=== PATIENT | female | born 1995 | race Caucasian/White ===

== ENCOUNTER 2017-01-23 07:03 | Emergency (ER) | payer OTHER ==
[~2017-01-23] VITALS: Ht 160 cm; Wt 111.8 kg
[2017-01-23 07:07] VITALS: TEMP 36.4; Ht 160 cm; Wt 111.8 kg
[2017-01-23] MEDS ORDERED: SODIUM CHLORIDE 0.9% 1000ML 1,000 ML IV STA (07:21)
[2017-01-23] MEDS ORDERED: KETOROLAC TROMETHAMINE 30 MG/ML VIAL IV STA (07:21)
[2017-01-23] MEDS ORDERED: ONDANSETRON INJ 2 MG/ML 2 ML VIAL IV STA (07:21)
--- NOTE | 2017-01-23 07:25 | EMERGENCY ROOM VISIT NOTE ---
History Report prepared by Makenna: Kecia Walls Under the Supervision of: Dr. Larry Keyes M.D. First contact with patient: 07:12 Chief Complaint: FLANK PAIN Stated Complaint: LEFT BACK SIDE PAIN History of Present Illness The patient is a 21 year old female who presents to the Emergency Room with complaints of persistent left flank pain that started at two hours ago. She currently rates her discomfort as a 10/10 in severity, describing her pain as a sharp pain. The patient states that her pain radiates from her left flank into her left abdomen. She states that she often does a lot of heavy lifting at work. The patient states that her pain worsens when sitting down and with movement. She denies ever having a pain like this in the past. The patient states that her father has a history of kidney stones. She denies falling or any possible trauma. Patient states she does not have any urinary symptoms, fever, chills, chest pain, shortness of breath, numbness, or weakness. The patient states that her last menstrual cycle was two weeks ago, noting a possibility of . She denies being on any active medications. The patient denies any allergies. Source of History: patient Onset: two hours ago Position: other (left flank) Symptom Intensity: 10/10 Quality: sharp Timing: other (persistent) Modifying Factors (Worsening): movement, other (sitting down) Associated Symptoms: No fevers, No chills, No chest pain, No SOB, No urinary symptoms, No weakness, No numbness Review of Systems See HPI for pertinent positives & negatives. A total of 10 systems reviewed and were otherwise negative. Past Medical & Surgical Medical Problems: (1) Asthma Surgical Problems: (1) S/P tonsillectomy and adenoidectomy Old medical records were reviewed. Nurse's notes were reviewed and I agree with. Family History FHx: cancer Kidney disease Kidney stones Social History Smoking Status: Former Smoker Smokeless Tobacco Use: No Alcohol Use: occasionally Marital Status: in relationship Housing Status: lives with family Occupation Status: employed Current/Historical Medications Scheduled PRN Oxycodone Immediate Rel Tab (Roxicodone Ir), 1-2 TAB PO Q4H PRN for Severe Pain Allergies Coded Allergies: No Known Allergies (Unverified , 01/23/17) Physical Exam Vital Signs Date Time Temp Pulse Resp B/P (MAP) Pulse Ox O2 Delivery O2 Flow Rate FiO2 01/23/17 09:22 70 18 122/70 99 01/23/17 08:08 72 18 109/71 96 Room Air 01/23/17 07:07 36.4 99 18 136/82 97 Room Air Physical Exam General: Non-ill appearing young female in no acute distress. HEENT: Normal cephalic atraumatic. Pupils are equal round and reactive to light. Extraocular movements are intact. Oropharynx is pink with moist mucous membranes. No swelling of the mouth lips or tongue. Neck: Supple with a midline trachea. No meningeal signs or stiffness, no JVD or bruits. No Stridor. Chest: Clear to auscultation bilaterally. No wheezes or rhonchi. No increased work of breathing. Heart: regular rate and rhythm. Abdomen: Soft nontender, nondistended without rebound guarding or rigidity. Extremities: No cyanosis clubbing or edema. No calf tenderness or assymetry Spine/Back. Mildly tender in the left flank into the left abdomen, no rash. Skin: Good turgor without rashes. Neurologic exam: Cranial nerves two through 12 are intact. Motor and sensation are intact and symmetrical throughout. Medical Decision & Procedures ER Provider Diagnostic Interpretation: CT results as stated below per my review and radiologist interpretation: ABD/PELVIS WITHOUT FOR STONE HISTORY: 21 years-old Female left flank pain acute left-sided flank pain COMPARISON: None available TECHNIQUE: Multiple axial CT images of the abdomen and pelvis were obtained without IV contrast. A dose lowering technique was used consistent with the principals of ALARA. FINDINGS: Lung bases are clear. No pneumoperitoneum identified. No pneumatosis. Imaged inferior cardiac chambers are unremarkable. The liver, spleen, pancreas, gallbladder and adrenal glands are unremarkable. Right kidney and ureter are within normal limits. There is mild left-sided hydroureteronephrosis with mild perinephric and periureteral inflammatory stranding secondary to a 4 x 3 x 3 mm calculus of the proximal left ureter which is present approximately 2.2 cm distal to the ureteropelvic junction at the level of L2. No additional left-sided renal or ureteral calculi. Urinary bladder and uterus are unremarkable. Follicular changes of the ovaries are noted. The aorta is normal in course and caliber. No bulky adenopathy. There is no bowel obstruction or focal bowel wall thickening. Minimal colonic diverticulosis without diverticulitis. The appendix appears normal. Nonspecific mildly prominent lymph nodes are seen within the right lower quadrant mesentery measuring up to 6 mm in short axis, likely physiologic. Soft tissues are unremarkable with patient obesity noted. The bones appear intact. IMPRESSION: 1. Mild left-sided hydroureteronephrosis secondary to a 4 x 3 x 3 mm calculus of the proximal left ureter at the level of L2. 2. Minimal colonic diverticulosis without diverticulitis. 3. Normal appendix. The above report was generated using voice recognition software. It may contain grammatical, syntax or spelling errors. Electronically signed by: Darnell Jordan M.D. 01/23/2017 8:11 AM Dictated Date/Time: 01/23/2017 8:05 AM Laboratory Results 01/23/17 07:45 Red Blood Count 4.76, Mean Corpuscular Volume 84.0, Mean Corpuscular Hemoglobin 28.6, Mean Corpuscular Hemoglobin Concent 34.0, Mean Platelet Volume 9.4, Neutrophils (%) (Auto) 66.1, Lymphocytes (%) (Auto) 26.5, Monocytes (%) (Auto) 6.5, Eosinophils (%) (Auto) 0.4, Basophils (%) (Auto) 0.3, Neutrophils # (Auto) 7.12, Lymphocytes # (Auto) 2.85, Monocytes # (Auto) 0.70, Eosinophils # (Auto) 0.04, Basophils # (Auto) 0.03 01/23/17 07:45 Test 01/23/17 07:25 01/23/17 07:45 Urine Color YELLOW Urine Appearance CLEAR (CLEAR) Urine pH 7.0 (4.5-7.5) Urine Specific [place] 1.011 (1.000-1.030) Urine Protein NEG (NEG) Urine Glucose (UA) NEG (NEG) Urine Ketones NEG (NEG) Urine Occult Blood 2+ (NEG) Urine Nitrite NEG (NEG) Urine Bilirubin NEG (NEG) Urine Urobilinogen NEG (NEG) Urine Leukocyte Esterase NEG (NEG) Urine WBC (Auto) 1-5 /hpf (0-5) Urine RBC (Auto) 10-30 /hpf (0-4) Urine Hyaline Casts (Auto) 0 /lpf (0-5) Urine Epithelial Cells (Auto) >30 /lpf (0-5) Urine Bacteria (Auto) 1+ (NEG) Urine Test NEG (NEG) White Blood Count 10.76 K/uL (4.8-10.8) Red Blood Count 4.76 M/uL (4.2-5.4) Hemoglobin 13.6 g/dL (12.0-16.0) Hematocrit 40.0 % (37-47) Mean Corpuscular Volume 84.0 fL (80-100) Mean Corpuscular Hemoglobin 28.6 pg (25-34) Mean Corpuscular Hemoglobin Concent 34.0 g/dl (32-36) Platelet Count 322 K/uL (130-400) Mean Platelet Volume 9.4 fL (7.4-10.4) Neutrophils (%) (Auto) 66.1 % Lymphocytes (%) (Auto) 26.5 % Monocytes (%) (Auto) 6.5 % Eosinophils (%) (Auto) 0.4 % Basophils (%) (Auto) 0.3 % Neutrophils # (Auto) 7.12 K/uL (1.4-6.5) Lymphocytes # (Auto) 2.85 K/uL (1.2-3.4) Monocytes # (Auto) 0.70 K/uL (0.11-0.59) Eosinophils # (Auto) 0.04 K/uL (0-0.5) Basophils # (Auto) 0.03 K/uL (0-0.2) RDW Standard Deviation 39.5 fL (36.4-46.3) RDW Coefficient of Variation 13.1 % (11.5-14.5) Immature Granulocyte % (Auto) 0.2 % Immature Granulocyte # (Auto) 0.02 K/uL (0.00-0.02) Anion Gap 9.0 mmol/L (3-11) Est Creatinine Clear Calc Drug Dose 150.7 ml/min Estimated GFR () 141.1 Estimated GFR (Non- 121.8 BUN/Creatinine Ratio 27.1 (10-20) Calcium Level 9.4 mg/dl (8.5-10.1) Total Bilirubin 0.3 mg/dl (0.2-1) Direct Bilirubin < 0.1 mg/dl (0-0.2) Aspartate Amino Transf (AST/SGOT) 20 U/L (15-37) Alanine Aminotransferase (ALT/SGPT) 39 U/L (12-78) Alkaline Phosphatase 80 U/L (45-117) Total Protein 7.9 gm/dl (6.4-8.2) Albumin 4.0 gm/dl (3.4-5.0) Lipase 96 U/L (73-393) Laboratory studies as stated above per my review. Medications Administered Medications (Trade) Dose Ordered Sig/Jr Route Start Time Stop Time Status Last Admin Dose Admin Sodium Chloride 1,000 ml @ 999 mls/hr Q1H1M STAT IV 01/23/17 07:21 01/23/17 08:21 DC 01/23/17 07:43 999 MLS/HR Ketorolac Tromethamine (Toradol Inj) 30 mg NOW STAT IV 01/23/17 07:21 01/23/17 07:23 DC 01/23/17 07:44 30 MG ED Course 0713: Past medical records reviewed. The patient was evaluated in room A10, and a complete history and physical examination were performed. 0721: Ordered Zofran Inj 4 mg IV, Toradol Inj 30 mg IV, Sodium Chloride 1000 ml @ 999 mls/hr IV. 0745: I reevaluated the patient and she is having her IV started. 0800: I went to reevaluate the patient and she is at her CT scan. 0812: I reevaluated the patient and she is feeling better. 0909: I reevaluated the patient and she is resting comfortably. I discussed the exam findings with her and I discussed the treatment plan. She verbalized complete understanding and agreement. She is ready to go home. Medical Decision Differentials include, but are not limited to; kidney stone, UTI, musculoskeletal pain, electrolyte or metabolic abnormality, infection. This patient comes in as described above. She was placed in room A 10. She is having left flank pain that wraps around she had sudden onset. She does not appear to be in significant amount discomfort however, does complain of pain and did have some nausea in the way up. She is here with her boyfriend who is driving. IV access established was hydrated with 1 L IV normal saline bolus. She was given Toradol 30 mg IV and Zofran 4 mg IV. Multiple blood testing was obtained as well as urinalysis and culture and test. I'll see the CAT scan to rule out kidney stone other pathology. She was reassessed frequently. She was feeling better and had no further pain. Her urinalysis does not suggest infection. She has no acute electrolyte or metabolic abnormalities. CAT scan does show a proximal small to medium sized stone. This will will likely pass on its own but I told her that it may not. She should rest and drink plenty of fluids. Return if: Fever, worsening of symptoms , any new problems or concerns. She can use ibuprofen for pain and for breakthrough pain use OxyIR 5 mg. She is one of this could make her drowsy do not take before drinking, driving, working. She was happy with the plan and discharged to home. Medication Reconcilliation Current Medication List: was personally reviewed by me Blood Pressure Screening Patient's blood pressure: Normal blood pressure Blood pressure disposition: Did not require urgent referral Impression Primary Impression: Renal colic Additional Impression: Kidney stone on left side Scribe Attestation The scribe's documentation has been prepared under my direction and personally reviewed by me in its entirety. I confirm that the note above accurately reflects all work, treatment, procedures, and medical decision making performed by me. Departure Information Dispostion Home / Self-Care Prescriptions Oxycodone Immediate Rel Tab (ROXICODONE IR) 5 Mg Tab 1-2 TAB PO Q4H Y for Severe Pain, #24 TAB Prov: Larry Keyes M.D. 01/23/17 Referrals No Doctor, Assigned (PCP) SheltonShala GEOVANNI-Terence Forms HOME CARE DOCUMENTATION FORM, IMPORTANT VISIT INFORMATION, Work Instructions Patient Instructions My [facility] Additional Instructions Rest. Drink plenty of fluids. Strain her urine. Use ibuprofen 600 mg every 6 hours, take with food For more severe pain, use OxyIR 5 mg, one or 2 pills every 4-6 hours as needed OxyIR may make you drowsy and do not take before drinking, driving, working Return if: Fever, worsening of symptoms, pain not adequately controlled, not tolerating fluids, any new problems or concerns Follow-up with doctor on Thursday for recheck or return here over the weekend if symptoms worsen. If symptoms persist he may need to follow-up with the urologist as well. Problem Qualifiers
[2017-01-23 07:45] LABS: URINE APPEARANCE CLEAR (CLEAR); URINE BILIRUBIN NEG (NEG); URINE COLOR YELLOW; URINE EPITHELIAL CELL AUTO >30 /lpf (0-5); URINE NITRITE NEG (NEG); URINE SPECIFIC GRAVITY 1.011 (1.000-1.030); UROBILINOGEN NEG (NEG)
[2017-01-23 07:52] LABS: MANUAL MICROSCOPIC REQUIRED? NO; REVIEW REQ? NO
[2017-01-23 07:57] LABS: BASO % 0.3 %; BASO ABS # 0.03 K/uL (0-0.2); COMPLETE YES; EOS % 0.4 %; IG% 0.2 %; LYMPH % 26.5 %; LYMPH ABS # 2.85 K/uL (1.2-3.4); MEAN CORPUSCULAR HEMOGLOBIN 28.6 pg (25-34); MEAN PLATELET VOLUME 9.4 fL (7.4-10.4); MONO % 6.5 %; NEUT % 66.1 %; PLATELET COUNT 322 K/uL (130-400); RED BLOOD COUNT 4.76 M/uL (4.2-5.4); WHITE BLOOD COUNT 10.76 K/uL (4.8-10.8)
--- NOTE | 2017-01-23 08:12 | DIAGNOSTIC IMAGING REPORT ---
ABD/PELVIS WITHOUT FOR STONE HISTORY: 21 years-old Female left flank pain acute left-sided flank pain COMPARISON: None available TECHNIQUE: Multiple axial CT images of the abdomen and pelvis were obtained without IV contrast. A dose lowering technique was used consistent with the principals of MARIEL. FINDINGS: Lung bases are clear. No pneumoperitoneum identified. No pneumatosis. Imaged inferior cardiac chambers are unremarkable. The liver, spleen, pancreas, gallbladder and adrenal glands are unremarkable. Right kidney and ureter are within normal limits. There is mild left-sided hydroureteronephrosis with mild perinephric and periureteral inflammatory stranding secondary to a 4 x 3 x 3 mm calculus of the proximal left ureter which is present approximately 2.2 cm distal to the ureteropelvic junction at the level of L2. No additional left-sided renal or ureteral calculi. Urinary bladder and uterus are unremarkable. Follicular changes of the ovaries are noted. The aorta is normal in course and caliber. No bulky adenopathy. There is no bowel obstruction or focal bowel wall thickening. Minimal colonic diverticulosis without diverticulitis. The appendix appears normal. Nonspecific mildly prominent lymph nodes are seen within the right lower quadrant mesentery measuring up to 6 mm in short axis, likely physiologic. Soft tissues are unremarkable with patient obesity noted. The bones appear intact. IMPRESSION: 1. Mild left-sided hydroureteronephrosis secondary to a 4 x 3 x 3 mm calculus of the proximal left ureter at the level of L2. 2. Minimal colonic diverticulosis without diverticulitis. 3. Normal appendix. The above report was generated using voice recognition software. It may contain grammatical, syntax or spelling errors. Electronically signed by: Darnell Jordan M.D. 01/23/2017 8:11 AM Dictated Date/Time: 01/23/2017 8:05 AM
[2017-01-23 08:13] LABS: BUN/CREATININE RATIO 27.1 (10-20); CALCIUM 9.4 mg/dl (8.5-10.1); CREATININE 0.71 mg/dl (0.60-1.20)
[2017-01-23] MEDS ORDERED: OXYC1TAB3 PO (09:11)
[2017-01-23 09:12] LABS: ALKALINE PHOSPHATASE 80 U/L (45-117); ALT/SGPT 39 U/L (12-78); AST/SGOT 20 U/L (15-37)
[2017-01-23 09:22] VITALS: BP 122/70; PULSE 70; O2SAT 99
== END 2017-01-23 09:22 | disposition home or self-care (01) ==
LOC: C.EDB 07:05 → C.EDA 09:22
DX: N13.2 Hydronephrosis with renal and ureteral calculous obstruction (principal); J45.909 Unspecified asthma, uncomplicated; Z84.1 Family history of disorders of kidney and ureter; Z80.9 Family history of malignant neoplasm, unspecified; Z87.891 Personal history of nicotine dependence

== ENCOUNTER 2017-01-27 06:43 | Inpatient (IN) | payer OTHER ==
[2017-01-27] VITALS (7 sets, daily range): BP systolic 101–125; BP diastolic 66–82; PULSE 116–149; TEMP 36.8–38.2; O2SAT 94–97; Ht 170.2 cm; Wt 111.7 kg
[~2017-01-27] VITALS: Ht 170.2 cm; Wt 111.7 kg
[~2017-01-27 06:43] MED LIST: OXYC1TAB3 PO
--- NOTE | 2017-01-27 07:18 | DIAGNOSTIC IMAGING REPORT ---
SINGLE VIEW CHEST CLINICAL HISTORY: Fever. FINDINGS: An AP, portable, upright chest radiograph is obtained. No prior studies are available for comparison at the time of dictation. The cardiomediastinal silhouette is unremarkable. The lungs and pleural spaces are clear. No pneumothorax is seen. The bony thorax is grossly intact. IMPRESSION: No active disease in the chest. Electronically signed by: John Rodriguez M.D. 01/27/2017 7:17 AM Dictated Date/Time: 01/27/2017 7:17 AM
--- NOTE | 2017-01-27 07:21 | EMERGENCY ROOM VISIT NOTE ---
History First contact with patient: 06:54 Chief Complaint: FEVER Stated Complaint: FEVER, KIDNEY STONE, ECOLI History of Present Illness The patient is a 21 year old female who presents to the Emergency Room with complaints of fever in setting of recent kidney stone and UTI. She woke up early this am (0330) with back pain, took 4 ibuprofen, and took her temp 1 hour later (0415) and was 100.9. Rechecked and 101 temp was measured at 0530. Both were measured in axilla. Temp today in ED 36.7C. Presents to ED as she was told to return if new onset of fever. 4 days ago was diagnosed with kidney stone on the left side; 3 days ago was called to be notified that she grew e.coli in her urine and was prescribed macrobid, which she had not been able to pick up driver since yesterday and has only taken 1 dose. Outlook ok on 3 days ago (1 day after DC for renal stone), had increasing pain 2 days ago into yesterday, and yesterday was able to control pain with scheduled oxy. She was meant to follow up with her PCP but has been unable to get in to see them She reports no chance of her being (had blood test 4 days ago). Review of Systems Constitutional: + fever, + chills Abdomen: + nausea Genitourinary - Female: + dysuria, + urinary frequency Past Medical/Surgical History Medical Problems: (1) Asthma Surgical Problems: (1) S/P tonsillectomy and adenoidectomy Family History FHx: cancer Kidney disease Kidney stones Social History Smoking Status: Current Every Day Smoker Alcohol Use: occasionally Marital Status: in relationship Housing Status: lives with family Occupation Status: employed Current/Historical Medications Scheduled Nitrofurantoin Monohyd Macrocr (Macrobid), 100 MG PO BID Scheduled PRN Ibuprofen Tab (Motrin), 800 MG PO UD PRN for Pain Oxycodone Immediate Rel Tab (Roxicodone Ir), 1-2 TAB PO Q4H PRN for Severe Pain Physical Exam Vital Signs Date Time Temp Pulse Resp B/P (MAP) Pulse Ox O2 Delivery O2 Flow Rate FiO2 01/27/17 09:43 106 18 141/97 99 Room Air 01/27/17 09:00 96 Room Air 01/27/17 08:30 36.4 77 18 132/75 96 Room Air 01/27/17 06:48 36.7 97 18 136/82 97 Room Air Physical Exam General Appearance: WD/WN, no apparent distress Head: normocephalic, atraumatic Eyes: normal inspection, EOMI ENT: hearing grossly normal Neck: supple, no adenopathy, trachea midline Respiratory/Chest: chest non-tender, lungs clear, normal breath sounds, no respiratory distress, no accessory muscle use Cardiovascular: regular rate, rhythm, no edema, no gallop, no JVD, no murmur , normal peripheral pulses Abdomen / GI: normal bowel sounds, non tender, soft, no pulsatile mass Back: normal inspection, + left CVA tenderness Extremities: normal inspection, no calf tenderness, normal capillary refill , no pedal edema Neurologic/Psych: foster care therapist II-XII nml as tested, no motor/sensory deficits, alert , normal mood/affect, normal reflexes, oriented x 3 Medical Decision & Procedures Laboratory Results 01/27/17 07:20 Red Blood Count 4.64, Mean Corpuscular Volume 84.1, Mean Corpuscular Hemoglobin 27.6, Mean Corpuscular Hemoglobin Concent 32.8, Mean Platelet Volume 9.8, Neutrophils (%) (Auto) 73.5, Lymphocytes (%) (Auto) 17.8, Monocytes (%) (Auto) 7.9, Eosinophils (%) (Auto) 0.3, Basophils (%) (Auto) 0.2, Neutrophils # (Auto) 8.79, Lymphocytes # (Auto) 2.13, Monocytes # (Auto) 0.94, Eosinophils # (Auto) 0.03, Basophils # (Auto) 0.02 01/27/17 07:20 Test 01/27/17 07:20 01/27/17 07:27 01/27/17 07:30 01/27/17 07:31 White Blood Count 11.94 K/uL (4.8-10.8) Red Blood Count 4.64 M/uL (4.2-5.4) Hemoglobin 12.8 g/dL (12.0-16.0) Hematocrit 39.0 % (37-47) Mean Corpuscular Volume 84.1 fL (80-100) Mean Corpuscular Hemoglobin 27.6 pg (25-34) Mean Corpuscular Hemoglobin Concent 32.8 g/dl (32-36) Platelet Count 278 K/uL (130-400) Mean Platelet Volume 9.8 fL (7.4-10.4) Neutrophils (%) (Auto) 73.5 % Lymphocytes (%) (Auto) 17.8 % Monocytes (%) (Auto) 7.9 % Eosinophils (%) (Auto) 0.3 % Basophils (%) (Auto) 0.2 % Neutrophils # (Auto) 8.79 K/uL (1.4-6.5) Lymphocytes # (Auto) 2.13 K/uL (1.2-3.4) Monocytes # (Auto) 0.94 K/uL (0.11-0.59) Eosinophils # (Auto) 0.03 K/uL (0-0.5) Basophils # (Auto) 0.02 K/uL (0-0.2) RDW Standard Deviation 39.5 fL (36.4-46.3) RDW Coefficient of Variation 13.1 % (11.5-14.5) Immature Granulocyte % (Auto) 0.3 % Immature Granulocyte # (Auto) 0.03 K/uL (0.00-0.02) Prothrombin Time 10.6 SECONDS (9.0-12.0) Prothromb Time International Ratio 1.0 (0.9-1.1) Est Creatinine Clear Calc Drug Dose 143.4 ml/min Estimated GFR () 122.2 Estimated GFR (Non- 105.4 BUN/Creatinine Ratio 15.0 (10-20) Calcium Level 9.0 mg/dl (8.5-10.1) Magnesium Level 2.0 mg/dl (1.8-2.4) Total Bilirubin 0.5 mg/dl (0.2-1) Direct Bilirubin < 0.1 mg/dl (0-0.2) Aspartate Amino Transf (AST/SGOT) 17 U/L (15-37) Alanine Aminotransferase (ALT/SGPT) 33 U/L (12-78) Alkaline Phosphatase 76 U/L (45-117) Total Creatine Kinase 114 U/L (26-192) Creatine Kinase MB < 0.5 ng/ml (0.5-3.6) Creatine Kinase MB Ratio (0-3.0) Troponin I < 0.015 ng/ml (0-0.045) Total Protein 7.5 gm/dl (6.4-8.2) Albumin 3.7 gm/dl (3.4-5.0) Bedside Lactic Acid Venous 0.74 mmol/L (0.90-1.70) Urine Color YELLOW Urine Appearance SL CLOUDY (CLEAR) Urine pH 7.5 (4.5-7.5) Urine Specific [place] 1.015 (1.000-1.030) Urine Protein NEG (NEG) Urine Glucose (UA) NEG (NEG) Urine Ketones NEG (NEG) Urine Occult Blood 1+ (NEG) Urine Nitrite NEG (NEG) Urine Bilirubin NEG (NEG) Urine Urobilinogen NEG (NEG) Urine Leukocyte Esterase LARGE (NEG) Urine RBC 10-30 /hpf (0-4) Urine WBC >30 /hpf (0-5) Urine Epithelial Cells 10-20 /lpf (0-5) Urine Bacteria 1+ (NEG) Bedside Hemoglobin 13.3 g/dl (12.0-16.0) Bedside Hematocrit 39 % (37-47) Bedside Sodium 137 mEq/L (135-144) Bedside Potassium 5.3 mEq/L (3.3-5.0) Bedside Chloride 101 mEq/L (101-112) Bedside Total CO2 31 mEq/l (24-31) Anion Gap 10.0 mmol/L (16-25) Bedside Blood Urea Nitrogen 15 mg/dl (7-18) Bedside Creatinine 0.8 mg/dl (0.6-1.3) Bedside Glucose (other) 98 mg/dl (70-99) Bedside Ionized Calcium ([place]) 1.12 mmol/l (1.12-1.32) Medications Administered Medications (Trade) Dose Ordered Sig/Jr Route Start Time Stop Time Status Last Admin Dose Admin Sodium Chloride 1,000 ml @ 999 mls/hr Q1H1M STAT IV 01/27/17 07:24 01/27/17 08:24 DC 01/27/17 07:51 999 MLS/HR Ceftriaxone Sodium (Rocephin Inj) 1 gm NOW STAT IV 01/27/17 07:24 01/27/17 07:26 DC 01/27/17 07:51 1 GM ECG Indication: back/shoulder pain, nausea Rate (beats per minute): 76 Rhythm: normal sinus Findings: other (flattened t waves in lateral leads) Comparison ECG Date: no prior available ED Course 0700: full h&p obtained from patient. 0720: patient assessed by Dr. Corona; obtained KUB, CXR, cbc, prp, mg2+, liver profile, lactic acid, pt, cpk, ckmb, trop, blood cultures x 2, ecg, UA clean w/ culture, 1 g rocephin IV. Contacted urology. 0815: patient reassessed, doing well with pain control, Boyfriend's dad is in room, patient requesting work excuse for today and tomorrow. 0830: case discussed with urology per Dr. Corona, they are to come and assess patient. Medical Decision Prior records/ancillary studies reviewed. Triage Nursing notes reviewed. Additional history obtained from patient. The patient's history was concerning for fever. Differential diagnosis: Etiologies such as viral syndrome, pneumonia, influenza, meningitis, urinary tract infection, sepsis, bacteremia, pyelonephritis as well as others were entertained. Physical examination: As above ER treatment provided: 1 G rocephin: Pain meds: On reassessment the patient felt better. Diagnostics interpreted by me: ECG: see above The labs revealed mild bump in WBC (10 to 12) since last visit, K+ of 5.3; UA showed 1+ occult blood and large esterase Imaging studies: KUB HISTORY: Left flank pain. UPJ stone COMPARISON: None. FINDINGS: The bowel gas pattern is unremarkable. There are no dilated loops of small bowel to suggest an obstruction. No renal calculi. Probable visualization of the 2 mm UPJ stone adjacent to the left L2 transverse process. No pneumoperitoneum or pneumatosis. IMPRESSION: Probable visualization of the 2 mm left UPJ stone adjacent to the L2 transverse process. Consultation: A consultation was placed with urology. The case was discussed and diagnostics were reviewed. The patient was evaluated in the ER for further treatment. This appears to be consistent with infectious stone. By the evaluation outlined above emergent etiologies such as otitis, pharyngitis, pneumonia, meningitis, urinary tract infection, sepsis, bacteremia, as well as others were deemed relatively unlikely. The patient informed about the findings as listed above. All questions were answered and she was pleased with the treatment. Patient's case to be taken over by urology. Blood Pressure Screening Patient's blood pressure: Normal blood pressure Impression Primary Impression: Fever Additional Impression: Kidney stone Departure Information Dispostion Admitted as an inpatient Condition FAIR Referrals Shala Peoples PA-C (PCP) Patient Instructions My [facility] Resident Tracking Resident Involvement: Resident Care Provided Care Provided: Adult ED Problem Qualifiers Primary Impression: Fever Fever type: unspecified Qualified Codes: R50.9 - Fever, unspecified
[2017-01-27] MEDS ORDERED: SODIUM CHLORIDE 0.9% 1000ML 1,000 ML IV STA (07:24)
[2017-01-27] MEDS ORDERED: CEFTRIAXONE SOD INJ 1 GM ADDVIAL IV STA (07:24)
[2017-01-27] MEDS ORDERED: NITR-5 PO (07:30)
[2017-01-27] MEDS ORDERED: IBUP-1451 PO (07:31)
[2017-01-27 07:43] LABS: ISTAT CREATININE 0.8 mg/dl (0.6-1.3); ISTAT HEMOGLOBIN 13.3 g/dl (12.0-16.0); ISTAT IONIZED CALCIUM 1.12 mmol/l (1.12-1.32)
[2017-01-27 07:53] LABS: BASO % 0.2 %; BASO ABS # 0.02 K/uL (0-0.2); COMPLETE YES; EOS % 0.3 %; IG% 0.3 %; LYMPH % 17.8 %; LYMPH ABS # 2.13 K/uL (1.2-3.4); MEAN CELL VOLUME 84.1 fL (80-100); MEAN CORPUSCULAR HEMOGLOBIN 27.6 pg (25-34); MEAN CORPUSCULAR HGB CONC 32.8 g/dl (32-36); MEAN PLATELET VOLUME 9.8 fL (7.4-10.4); MONO % 7.9 %; NEUT % 73.5 %; PLATELET COUNT 278 K/uL (130-400); RED BLOOD COUNT 4.64 M/uL (4.2-5.4); WHITE BLOOD COUNT 11.94 K/uL (4.8-10.8)
--- NOTE | 2017-01-27 07:57 | EMERGENCY ROOM VISIT NOTE ---
History Report prepared by Makenna: Irena Rios Under the Supervision of: Dr. Jayme Corona D.O. First contact with patient: 06:53 Chief Complaint: FEVER Stated Complaint: FEVER, KIDNEY STONE, ECOLI History of Present Illness The patient is a 21 year old female who presents to the Emergency Room with complaints of persistent left flank pain that began five days ago. She currently rates her discomfort as a 7/10 in severity. The patient states that on Thursday she initially developed left flank pain and notes that after coming to the emergency department for evaluation she was diagnosed with a kidney stone. She denies any previous history of kidney stones. The patient states that she has still been experiencing the left flank pain that radiates into her abdomen. She states that she was alerted on Thursday that her urine grew out E. Coli and states that she was prescribed Macrobid for her infection. The patient states that around 0 she woke up with increased pain, but notes that she could not take her prescribed pain medications since she was planning to go to work. She states that she took four Ibuprofen and went back to bed. She states that she woke up again and had developed a fever of 101 degrees Fahrenheit. The patient states that she had it checked again and it was 101 degrees Fahrenheit. She denies any chance of . Source of History: patient Onset: five days ago Position: other (left flank) Symptom Intensity: 7/10 Timing: other (persistent) Associated Symptoms: + fevers Review of Systems See HPI for pertinent positives & negatives. A total of 10 systems reviewed and were otherwise negative. Past Medical & Surgical Medical Problems: (1) Asthma Surgical Problems: (1) S/P tonsillectomy and adenoidectomy Family History Diabetes mellitus FHx: cancer Hypertension Kidney disease Kidney stones Social History Smoking Status: Current Every Day Smoker Alcohol Use: occasionally Marital Status: in relationship Housing Status: lives with family Occupation Status: employed Current/Historical Medications Scheduled Nitrofurantoin Monohyd Macrocr (Macrobid), 100 MG PO BID Scheduled PRN Ibuprofen Tab (Motrin), 800 MG PO UD PRN for Pain Oxycodone Immediate Rel Tab (Roxicodone Ir), 1-2 TAB PO Q4H PRN for Severe Pain Allergies Coded Allergies: No Known Allergies (Unverified , 01/27/17) Physical Exam Vital Signs Date Time Temp Pulse Resp B/P (MAP) Pulse Ox O2 Delivery O2 Flow Rate FiO2 01/27/17 09:43 106 18 141/97 99 Room Air 01/27/17 09:00 96 Room Air 01/27/17 08:30 36.4 77 18 132/75 96 Room Air 01/27/17 06:48 36.7 97 18 136/82 97 Room Air Physical Exam GENERAL: Sitting up in bed crying, alert, well appearing, well nourished, no distress, non-toxic EYE EXAM: normal conjunctiva. OROPHARYNX: no exudate, no erythema, lips, buccal mucosa, and tongue normal and mucous membranes are moist NECK: supple, no nuchal rigidity, no adenopathy, non-tender LUNGS: Clear to auscultation. Normal chest wall mechanics HEART: no murmurs, S1 normal and S2 normal ABDOMEN: abdomen soft, non-tender, normo-active bowel sounds, no masses, no rebound or guarding. BACK: Back is symmetrical on inspection and there is no deformity, no midline tenderness, no CVA tenderness. SKIN: no rashes and no bruising UPPER EXTREMITIES: upper extremities are grossly normal. LOWER EXTREMITIES: No pitting edema. NEURO EXAM: Normal sensorium, cranial nerves II-XII grossly intact, normal speech, no gross weakness of arms, no gross weakness of legs. Medical Decision & Procedures ER Provider Diagnostic Interpretation: Radiology results as stated below per my review and the radiologist's interpretation: KUB HISTORY: Left flank pain. UPJ stone COMPARISON: None. FINDINGS: The bowel gas pattern is unremarkable. There are no dilated loops of small bowel to suggest an obstruction. No renal calculi. Probable visualization of the 2 mm UPJ stone adjacent to the left L2 transverse process. No pneumoperitoneum or pneumatosis. IMPRESSION: Probable visualization of the 2 mm left UPJ stone adjacent to the L2 transverse process. Electronically signed by: Mesfin Crespo M.D. 01/27/2017 7:20 AM Dictated Date/Time: 01/27/2017 7:18 AM SINGLE VIEW CHEST CLINICAL HISTORY: Fever. FINDINGS: An AP, portable, upright chest radiograph is obtained. No prior studies are available for comparison at the time of dictation. The cardiomediastinal silhouette is unremarkable. The lungs and pleural spaces are clear. No pneumothorax is seen. The bony thorax is grossly intact. IMPRESSION: No active disease in the chest. Electronically signed by: John Rodriguez M.D. 01/27/2017 7:17 AM Dictated Date/Time: 01/27/2017 7:17 AM Laboratory Results 01/27/17 07:20 Red Blood Count 4.64, Mean Corpuscular Volume 84.1, Mean Corpuscular Hemoglobin 27.6, Mean Corpuscular Hemoglobin Concent 32.8, Mean Platelet Volume 9.8, Neutrophils (%) (Auto) 73.5, Lymphocytes (%) (Auto) 17.8, Monocytes (%) (Auto) 7.9, Eosinophils (%) (Auto) 0.3, Basophils (%) (Auto) 0.2, Neutrophils # (Auto) 8.79, Lymphocytes # (Auto) 2.13, Monocytes # (Auto) 0.94, Eosinophils # (Auto) 0.03, Basophils # (Auto) 0.02 01/27/17 07:20 Test 01/27/17 07:20 01/27/17 07:27 01/27/17 07:30 01/27/17 07:31 White Blood Count 11.94 K/uL (4.8-10.8) Red Blood Count 4.64 M/uL (4.2-5.4) Hemoglobin 12.8 g/dL (12.0-16.0) Hematocrit 39.0 % (37-47) Mean Corpuscular Volume 84.1 fL (80-100) Mean Corpuscular Hemoglobin 27.6 pg (25-34) Mean Corpuscular Hemoglobin Concent 32.8 g/dl (32-36) Platelet Count 278 K/uL (130-400) Mean Platelet Volume 9.8 fL (7.4-10.4) Neutrophils (%) (Auto) 73.5 % Lymphocytes (%) (Auto) 17.8 % Monocytes (%) (Auto) 7.9 % Eosinophils (%) (Auto) 0.3 % Basophils (%) (Auto) 0.2 % Neutrophils # (Auto) 8.79 K/uL (1.4-6.5) Lymphocytes # (Auto) 2.13 K/uL (1.2-3.4) Monocytes # (Auto) 0.94 K/uL (0.11-0.59) Eosinophils # (Auto) 0.03 K/uL (0-0.5) Basophils # (Auto) 0.02 K/uL (0-0.2) RDW Standard Deviation 39.5 fL (36.4-46.3) RDW Coefficient of Variation 13.1 % (11.5-14.5) Immature Granulocyte % (Auto) 0.3 % Immature Granulocyte # (Auto) 0.03 K/uL (0.00-0.02) Prothrombin Time 10.6 SECONDS (9.0-12.0) Prothromb Time International Ratio 1.0 (0.9-1.1) Est Creatinine Clear Calc Drug Dose 143.4 ml/min Estimated GFR () 122.2 Estimated GFR (Non- 105.4 BUN/Creatinine Ratio 15.0 (10-20) Calcium Level 9.0 mg/dl (8.5-10.1) Magnesium Level 2.0 mg/dl (1.8-2.4) Total Bilirubin 0.5 mg/dl (0.2-1) Direct Bilirubin < 0.1 mg/dl (0-0.2) Aspartate Amino Transf (AST/SGOT) 17 U/L (15-37) Alanine Aminotransferase (ALT/SGPT) 33 U/L (12-78) Alkaline Phosphatase 76 U/L (45-117) Total Creatine Kinase 114 U/L (26-192) Creatine Kinase MB < 0.5 ng/ml (0.5-3.6) Creatine Kinase MB Ratio (0-3.0) Troponin I < 0.015 ng/ml (0-0.045) Total Protein 7.5 gm/dl (6.4-8.2) Albumin 3.7 gm/dl (3.4-5.0) Bedside Lactic Acid Venous 0.74 mmol/L (0.90-1.70) Urine Color YELLOW Urine Appearance SL CLOUDY (CLEAR) Urine pH 7.5 (4.5-7.5) Urine Specific [place] 1.015 (1.000-1.030) Urine Protein NEG (NEG) Urine Glucose (UA) NEG (NEG) Urine Ketones NEG (NEG) Urine Occult Blood 1+ (NEG) Urine Nitrite NEG (NEG) Urine Bilirubin NEG (NEG) Urine Urobilinogen NEG (NEG) Urine Leukocyte Esterase LARGE (NEG) Urine RBC 10-30 /hpf (0-4) Urine WBC >30 /hpf (0-5) Urine Epithelial Cells 10-20 /lpf (0-5) Urine Bacteria 1+ (NEG) Bedside Hemoglobin 13.3 g/dl (12.0-16.0) Bedside Hematocrit 39 % (37-47) Bedside Sodium 137 mEq/L (135-144) Bedside Potassium 5.3 mEq/L (3.3-5.0) Bedside Chloride 101 mEq/L (101-112) Bedside Total CO2 31 mEq/l (24-31) Anion Gap 10.0 mmol/L (16-25) Bedside Blood Urea Nitrogen 15 mg/dl (7-18) Bedside Creatinine 0.8 mg/dl (0.6-1.3) Bedside Glucose (other) 98 mg/dl (70-99) Bedside Ionized Calcium (Floresita) 1.12 mmol/l (1.12-1.32) Laboratory results per my review. Medications Administered Medications (Trade) Dose Ordered Sig/Jr Route Start Time Stop Time Status Last Admin Dose Admin Sodium Chloride 1,000 ml @ 999 mls/hr Q1H1M STAT IV 01/27/17 07:24 01/27/17 08:24 DC 01/27/17 07:51 999 MLS/HR Ceftriaxone Sodium (Rocephin Inj) 1 gm NOW STAT IV 01/27/17 07:24 01/27/17 07:26 DC 01/27/17 07:51 1 GM ECG Indication: back/shoulder pain Rate (beats per minute): 76 Rhythm: sinus rhythm Findings: no ectopy, other (normal axis, T wave flattening laterally) ED Course ED COURSE: Vital signs were reviewed and showed tachycardic The patients medical record was reviewed The above diagnostic studies were performed and reviewed. ED treatments and interventions as stated above. 0716: The patient was evaluated in room A2. A complete history and physical examination was performed. 0724: Ordered Rocephin Inj 1 gm IV, Sodium Chloride 1000 ml @ 999 mls/hr IV. 0835: I reevaluated the patient and she is resting comfortably. I updated the patient at this time. 0836: Kelley Chamberlain, Urology PA-C was updated regarding the patient and their group will evaluate the patient. 0940: Upon reevaluation, the patient is resting comfortably.I discussed my findings with the patient and she understands and agrees with the treatment plan. Based on the patients age, coexisting illnesses, exam and lab findings the decision to treat as an inpatient was made. The patient remained stable while under my care. The patient will be evaluated for further management under urology. Medical Decision Differential diagnoses includes but is not limited to gastritis, peptic ulcer disease, GERD, gallbladder disease, pancreatitis, small bowel obstruction, acute coronary syndrome, pericarditis, ischemic bowel, irritable bowel disease, irritable bowel syndrome, appendicitis, diverticulitis, malignancy, hernia, urinary tract infection, torsion, /ectopic (if female), perforation, trauma, infectious. Patient is a [id number] female who presents to ER for left-sided flank pain associated with a fever of 1012 at home. Patient was recently seen here and diagnosed with a 4 mm proximal left ureteral stone with mild hydronephrosis. At that time a UA was taken. Urine culture eventually resulted and grew out greater than without 100,000 Escherichia coli. Patient was called in Macrobid which she did start taking. Patient has been taking OxyIR for pain. Both doctors were taking axillary. Upon presentation IVs were established and blood work was obtained. With her known stone we did obtain cultures. Lactate was unremarkable. She was given IV Rocephin immediately. CBC shows a mild increase in leukocytosis at 12,000. Previous was negative. BMP was unremarkable. KUB does suggest stone is still in place in the same location as do her symptoms. Based on her presentation and history of a known kidney stone in combination with an Escherichia coli UTI and recorded fevers at home urology was contacted and patient was taken to the OR for infected stone. Medication Reconcilliation Current Medication List: was personally reviewed by me Blood Pressure Screening Patient's blood pressure: Normal blood pressure Blood pressure disposition: Did not require urgent referral Consults Time Called: 0835 Consulting Physician: Jeffrey Aceves PA-C Returned Call: 0836 Jeffrey Aceves PA-C was updated regarding the patient and their group will evaluate the patient. Impression Primary Impression: Renal colic Additional Impressions: UTI (urinary tract infection) Hydronephrosis Kidney stone Scribe Attestation The scribe's documentation has been prepared under my direction and personally reviewed by me in its entirety. I confirm that the note above accurately reflects all work, treatment, procedures, and medical decision making performed by me. Departure Information Referrals SheltonShala MABEL (PCP) Patient Instructions My [facility] Problem Qualifiers Additional Impressions: UTI (urinary tract infection) Urinary tract infection type: acute cystitis Hematuria presence: with hematuria Qualified Codes: N30.01 - Acute cystitis with hematuria Hydronephrosis Hydronephrosis type: unspecified Qualified Codes: N13.30 - Unspecified hydronephrosis
[2017-01-27 07:58] LABS: MANUAL MICROSCOPIC REQUIRED? YES; URINE APPEARANCE SL CLOUDY (CLEAR); URINE BILIRUBIN NEG (NEG); URINE COLOR YELLOW; URINE NITRITE NEG (NEG); URINE PH 7.5 (4.5-7.5); URINE SPECIFIC GRAVITY 1.015 (1.000-1.030); UROBILINOGEN NEG (NEG)
[2017-01-27 08:01] LABS: PROTHROMBIN TIME (PATIENT) 10.6 SECONDS (9.0-12.0)
[2017-01-27 08:07] LABS: REVIEW REQ? NO
[2017-01-27 08:12] LABS: ALT/SGPT 33 U/L (12-78); BLOOD UREA NITROGEN 12 mg/dl (7-18); CARBON DIOXIDE 26 mmol/L (21-32); CHLORIDE 103 mmol/L (98-107); GLUCOSE 95 mg/dl (70-99); SODIUM 136 mmol/L (136-145)
[2017-01-27 08:18] LABS: ALKALINE PHOSPHATASE 76 U/L (45-117); AST/SGOT 17 U/L (15-37)
[2017-01-27 08:28] LABS: URINE WBC >30 /hpf (0-5)
[2017-01-27 08:29] LABS: URINE BACTERIA 1+ (NEG)
[2017-01-27 08:31] LABS: ZZUR CULT IF INDIC CLEAN CATCH YES
--- NOTE | 2017-01-27 09:27 | Urology Consultation ---
History General Date of Service: Jan 27, 2017. Primary Care Physician: Shala Peoples PA-C Pt seen a urologist before?: No History of Present Illness Patient seen in the ER on 01/23/2017 with a left proximal ureteral calculus- approximately 3 mm - Pain was controlled the time she was subsequently discharged home She was placed on oral antibiotics as a precaution at that time Her urine culture, however, ultimately grew Escherichia coli She will return to the ER this morning after experiencing a fever at home She has been afebrile on arrival She reports mild left flank and back pain No dysuria No hematuria Not particularly ill feeling KUB: No significant migration of the proximal ureteral calculus Imaging Imaging: CT, KUB Laboratory Labs were reviewed and are within normal limits unless listed below. Labs are available in the chart and at [facility] Problem List Medical Problems: (1) Fever Status: Acute (2) Kidney stone Status: Acute (3) Kidney stone on left side Status: Acute (4) Renal colic Status: Acute Past History no pertinent history, kidney stones Past Surgical History: tonsillectomy Family History Diabetes mellitus FHx: cancer Hypertension Kidney disease Kidney stones Social History Hx Tobacco Use In Past Year?: Yes (very little) Marital status: in relationship Occupation status: employed Allergies Coded Allergies: No Known Allergies (Unverified , 01/27/17) Medications Home Medications: Home Meds and Scripts Medications Dose Route/Sig Max Daily Dose Days Date Category Motrin (Ibuprofen) 800 Mg Tab 800 Mg PO UD PRN 01/27/17 Reported Macrobid (Nitrofurantoin Macrocrystals) 100 Mg Cap 100 Mg PO BID 01/27/17 Reported Roxicodone Ir (Oxycodone HCl) 5 Mg Tab 1-2 Tab PO Q4H PRN 01/23/17 Rx Review of Systems Review of Systems Constitutional: + fever, + chills Eyes: No see HPI, No blurred vision, No double vision, No eye pain, No loss of night vision, No problem reported Neurological: No see HPI, No dizzy, No passing out, No numbness/tingling, No seizures, No problem reported Endocrine: No see HPI, No excessive thirst, No too hot, No too cold, No tired/ sluggish, No problem reported Gastrointestinal: + abdominal pain, No see HPI, No indigestion, No nausea, No vomiting, No constipation, No diarrhea, No problem reported Cardiovascular: No see HPI, No heart murmur, No chest pain, No angina, No irregular heartbeat, No palpitations, No swelling ankles/feet, No problem reported Respiratory: No see HPI, No shortness of breath, No wheezing, No coughing up blood, No chronic cough, No problem reported Skin: No see HPI, No rash, No boils, No dry skin, No problem reported Musculoskeletal: No see HPI, No joint pain, No neck pain, No back pain, No arthritis, No problem reported Blood / Lymphatic: No see HPI, No bleed easily, No bruise easily, No swollen glands, No problem reported Ears / Nose / Throat: No see HPI, No hearing loss, No sinus, No hoarse voice, No sore throat, No problem reported Female : + kidney stones, + problem reported All Other Systems: Reviewed and Negative Physical Exam Vital Signs: Vital Signs Past 12 Hours Date Time Temp Pulse Resp B/P (MAP) Pulse Ox O2 Delivery O2 Flow Rate FiO2 01/27/17 09:00 96 Room Air 01/27/17 08:30 36.4 77 18 132/75 96 Room Air 01/27/17 06:48 36.7 97 18 136/82 97 Room Air Physical Exam: General Appearance: WD/WN, no apparent distress Eyes: bilateral eyes normal inspection ENT: hearing grossly normal Neck: supple Respiratory/Chest: no respiratory distress, no accessory muscle use Cardiovascular: no edema Gastrointestinal: Abdomen: normal abdomen Renal: cva tenderness (left) Extremities: no pedal edema, no calf tenderness Neurologic/Psychiatric: alert, normal mood/affect, oriented x 3 Skin: normal color, warm/dry Lymphatic: no adenopathy Assessment & Plan Assessment & Plan Left ureteral calculus; Escherichia coli bacteriuria with subjective fevers at home We have discussed options for management I have recommended cystoscopy and ureteral stent placement as a precaution to avoid progression to pyelonephritis and/or sepsis Risks, benefits, alternatives were discussed Consent is on the chart Continue nothing by mouth status until the OR
[2017-01-27] MEDS ORDERED: MIDAZOLAM HCL 1 MG/ML 2ML VIAL ONE ×2 (09:42→13:22)
[2017-01-27] MEDS ORDERED: FENTANYL CITRATE INJ 50 MCG/1 ML 2 ML VIAL ONE (09:42)
[2017-01-27] MEDS ORDERED: ONDANSETRON INJ 2 MG/ML 2 ML VIAL IV PRN ×2 (12:45→16:00)
[2017-01-27] MEDS ORDERED: EpHEDrine SULFATE INJ 50 MG/ML AMP IV PRN (12:45)
[2017-01-27] MEDS ORDERED: HYDROmorphone INJ 1 MG/ML SYR IV PRN (12:45)
[2017-01-27] MEDS ORDERED: ATROPINE SULFATE 0.1 MG/ML 5ML SYR IV PRN (12:45)
[2017-01-27] MEDS ORDERED: CONRAY 30% 150ML BOTTLE ONE (13:23)
[2017-01-27] MEDS ORDERED: ONDANSETRON INJ 2 MG/ML 2 ML VIAL ONE (13:36)
[2017-01-27] MEDS ORDERED: PROPOFOL IV EMULSION 10 MG/ML 20 ML VIAL IV ONE (13:36)
[2017-01-27] MEDS ORDERED: LIDOCAINE HCL 2% 2 ML VIAL (20MG/ML) ONE (13:36)
--- NOTE | 2017-01-27 14:05 | [facility] Operative Report ---
Operative Report Operative Date Jan 27, 2017. Pre-Operative Diagnosis Left ureteral calculus. Post-Operative Diagnosis Same as preop. Procedure(s) Performed Cystoscopy, Left Ureteral Stent Insertion ([id number]) Surgeon Dr. Armendariz Driver Service Technician Surgeon(s) None Estimated Blood Loss 0 ml Findings Healthy appearing bladder. Mild left hydronephrosis - no lamont pus or purulence to the urine. Specimens None. Drains [id number] Anesthesia MAC Complication(s) None Disposition Recovery Room / PACU (stable) Indications Fevers; L UPJ stone Description of Procedure Pt was identified and transported to the operating suite. She received rocephin in the pre-op area. Sedation was achieved and she was placed in dorsal lithotomy position where she was prepped and draped in standard fashion. A 22F cystoscope with 30degree lens was gently inserted. There were no bladder abnormalities or stones. The left UO was cannulated with a 5F open ended catheter and a sensor wire. The wire advanced without difficulty. The ureteral stone was not overly visible on fluoro. I measured the ureteral length by inserting the 5F catheter to the UPJ. She had minimal to no hydronephrotic drip and the urine was clear. I injected a very small amount of contrast to better confirm the anatomy - then replaced a wire and a [id number] ureteral stent. The bladder was decompressed and the case concluded. I attest to the content of the Intraoperative Record and any orders documented therein. Any exceptions are noted below.
--- NOTE | 2017-01-27 14:15 | DIAGNOSTIC IMAGING REPORT ---
RETROGRADE INCLUDES KUB HISTORY: LT CYSTO/STENT FLUOROSCOPY TIME: 11 seconds. FINDINGS: 5 fluoroscopic spot images were submitted for review. Initial images demonstrate placement of a guidewire into the left ureter/renal pelvis followed by retrograde opacification of the left renal collecting system. The final image demonstrates placement of a left ureteral stent. The proximal portion of the stent is identified and appears to be in good position. IMPRESSION: Fluoroscopy provided for left ureteral stent placement. The proximal portion of the stent is identified and appears to be in good position. Electronically signed by: Mesfin Crespo M.D. 01/27/2017 2:14 PM Dictated Date/Time: 01/27/2017 2:12 PM
[2017-01-27] MEDS ORDERED: PHENAZOPYRIDINE HCL 200 MG TAB PO STA (14:21)
[2017-01-27] MEDS ORDERED: SODIUM CHLORIDE 0.9% 1000ML 1,000 ML IV SCH (14:21)
[2017-01-27] MEDS ORDERED: SULF800T23 PO (14:23)
[2017-01-27] MEDS ORDERED: OXYC1TAB3 PO (14:23)
--- NOTE | 2017-01-27 14:24 | Discharge Instructions ---
Discharge Instructions Date of Service Jan 27, 2017. Admission Reason for Admission: Fever, Kidney Stone, Ecoli Discharge Discharge Diagnosis / Problem: infection; kidney stone Discharge Goals Goal(s): Decrease discomfort, Improve function, Increase independence, Improve disease control Activity Recommendations Activity Limitations: resume your previous activity Lifting Limitations: none Exercise/Sports Limitations: none May Resume Sexual Activity: when tolerated Shower/Bathe: no limitations Driving or Machine Use: resume 1 day after discharge . Instructions / Follow-Up Instructions / Follow-Up Dr. Armendariz's office will call you to schedule a follow up appointment. Current Hospital Diet Patient's current hospital diet: Discharge Diet Recommended Diet: Regular Diet Procedures Procedures Performed: Cystoscopy, Left Ureteral Stent Insertion ([id number]) Pending Studies Studies pending at discharge: no Medical Emergencies . Who to Call and When: Medical Emergencies: If at any time you feel your situation is an emergency, please call 911 immediately. . Non-Emergent Contact Non-Emergency issues call your: Urologist Call Non-Emergent contact if: you have a fever, temperature is above 101.5, your pain is not controlled, your pain is worsening . . "Provider Documentation" section prepared by Jose Traore. . VTE Core Measure Inpt VTE Proph given/why not?: Treatment not indicated [place] Drug Monitoring Program Search Results: patient reviewed within database
[2017-01-27] MEDS ORDERED: PHENAZOPYRIDINE HOME PACK 200 MG VIAL PO ONE (14:30)
[2017-01-27] MEDS ORDERED: ACETAMINOPHEN 325 MG TAB PO PRN (14:30)
[2017-01-27] MEDS ORDERED: OXYCODONE/ACETAMINOPHEN 5-325 TAB PO PRN ×4 (14:30→16:00)
[2017-01-27] MEDS: FENTANYL CITRATE INJ 50 MCG/1 ML 2 ML VIAL IV PRN ×4 (14:35→14:53)
--- NOTE | 2017-01-27 14:37 | Anesthesiology Progress Note ---
Anesthesia Post Op Note Date & Time Jan 27, 2017 at 14:37 Vital Signs Pain Intensity: 5.0 Vital Signs Past 12 Hours Date Time Temp Pulse Resp B/P (MAP) Pulse Ox O2 Delivery O2 Flow Rate FiO2 01/27/17 14:30 93 20 129/78 94 Room Air 01/27/17 14:20 94 18 130/69 98 Room Air 01/27/17 14:10 98 18 120/77 97 Room Air 01/27/17 14:04 36.5 97 16 117/66 100 Oxymask 10 01/27/17 09:43 106 18 141/97 99 Room Air 01/27/17 09:00 96 Room Air 01/27/17 08:30 36.4 77 18 132/75 96 Room Air 01/27/17 06:48 36.7 97 18 136/82 97 Room Air Notes Mental Status: alert / awake / arousable, participated in evaluation Pt Amnestic to Procedure: Yes Nausea / Vomiting: adequately controlled Pain: adequately controlled Airway Patency, RR, SpO2: stable & adequate BP & HR: stable & adequate Hydration State: stable & adequate Anesthetic Complications: no major complications apparent
[2017-01-27] MEDS ORDERED: NURSING VERBAL MED ORDER ONE ×2 (14:48→15:15)
[2017-01-27] MEDS ORDERED: MEPERIDINE HCL 25 MG/ML CARP ONE (14:49)
[2017-01-27] MEDS ORDERED: ACETAMINOPHEN 1000 MG/100 ML IV IV ONE (15:12)
--- NOTE | 2017-01-27 15:39 | Anesthesiology Progress Note ---
Anesthesia Post Op Note Date & Time Jan 27, 2017 at 15:36 Vital Signs Pain Intensity: 5.0 Vital Signs Past 12 Hours Date Time Temp Pulse Resp B/P (MAP) Pulse Ox O2 Delivery O2 Flow Rate FiO2 01/27/17 15:20 124 24 144/91 99 Nasal Cannula 2 01/27/17 15:10 133 34 170/103 97 Nasal Cannula 2 01/27/17 15:00 39.2 151 32 156/104 99 Nasal Cannula 2 01/27/17 14:50 174 28 101/84 93 Room Air 01/27/17 14:40 91 19 130/83 94 Room Air 01/27/17 14:30 93 20 129/78 94 Room Air 01/27/17 14:20 94 18 130/69 98 Room Air 01/27/17 14:10 98 18 120/77 97 Room Air 01/27/17 14:04 36.5 97 16 117/66 100 Oxymask 10 01/27/17 09:43 106 18 141/97 99 Room Air 01/27/17 09:00 96 Room Air 01/27/17 08:30 36.4 77 18 132/75 96 Room Air 01/27/17 06:48 36.7 97 18 136/82 97 Room Air Notes Mental Status: alert / awake / arousable, participated in evaluation Pt Amnestic to Procedure: Yes Nausea / Vomiting: adequately controlled Pain: adequately controlled Airway Patency, RR, SpO2: stable & adequate BP & HR: stable & adequate Hydration State: stable & adequate Anesthetic Complications: no major complications apparent Was called by nursing as patient started shivering. She received a small dose of demerol, which helped but patient also had tachycardia and hypertension. Temp was taken and it was 103. Concern that patient had SIRS response so surgeon aware and asked for hospitalist consult with inpatient admission, which was done. Hospitalist service to see patient in PACU. I also gave patient 1 gram IV tylenol and 1 liter bolus of IVF with BP decreasing to 140's/80's with HR down to 120's (sinus tach). Plan to transfer care to hospitalist service for continued observation.
[2017-01-27] MEDS ORDERED: KETOROLAC TROMETHAMINE 15 MG/ML VIAL IV. PRN (16:00)
[2017-01-27 17:28] LABS: BASO % 0.2 %; BASO ABS # 0.02 K/uL (0-0.2); EOS % 0.1 %; HEMATOCRIT 38.2 % (37-47); IG% 0.9 %; LYMPH % 8.9 %; LYMPH ABS # 0.77 K/uL (1.2-3.4); MEAN CELL VOLUME 83.4 fL (80-100); MEAN CORPUSCULAR HEMOGLOBIN 27.7 pg (25-34); MEAN PLATELET VOLUME 9.6 fL (7.4-10.4); MONO % 0.8 %; NEUT % 89.1 %; PLATELET COUNT 199 K/uL (130-400); RED BLOOD COUNT 4.58 M/uL (4.2-5.4); WHITE BLOOD COUNT 8.67 K/uL (4.8-10.8)
[2017-01-27 17:42] LABS: COMPLETE YES; MEAN CORPUSCULAR HGB CONC 33.2 g/dl (32-36)
[2017-01-27 17:59] LABS: BUN/CREATININE RATIO 11.5 (10-20); CALCIUM 8.7 mg/dl (8.5-10.1); CREATININE 0.77 mg/dl (0.60-1.20); POTASSIUM 3.6 mmol/L (3.5-5.1)
[2017-01-27] MEDS: LACTATED RINGER'S 1000ML 1,000 ML IV SCH ×2 (18:09→23:22)
[2017-01-27] MEDS ORDERED: NURSING DECISION MEDICATION ORDER SCH (18:15)
[2017-01-27] MEDS ORDERED: SODIUM CHLORIDE 0.65% NA SOLN 45 ML (OCEAN) PRN (18:30)
[2017-01-27] MEDS: ACETAMINOPHEN 325 MG TAB PO PRN (19:32)
[2017-01-27] MEDS: DOCUSATE SODIUM 100 MG CAP PO SCH (21:00)
[2017-01-28 00:42] VITALS: PULSE 118; TEMP 37.8
[2017-01-28 01:43] VITALS: PULSE 115; TEMP 37.5
[2017-01-28] MEDS: ACETAMINOPHEN 325 MG TAB PO PRN ×2 (01:44→09:38)
[2017-01-28 02:52] VITALS: BP 107/65; PULSE 117; TEMP 36.8; O2SAT 96
[2017-01-28] MEDS: LACTATED RINGER'S 1000ML 1,000 ML IV SCH (05:52)
[2017-01-28 07:56] VITALS: BP 120/70; PULSE 100; TEMP 37; O2SAT 96
--- NOTE | 2017-01-28 08:34 | Progress Note ---
Subjective Date of Service: Jan 28, 2017. Subjective Pt evaluation today including: conversation w/ patient, physical exam, chart review, lab review Voiding: no voiding problems S: doing much better - febrile yesterday after stent placement, but no issues overnight - still with some tachycardia - no pain - no hematuria - no dysuria - tolerating PO, ambulatory Problem List Medical Problems: (1) Fever Status: Acute (2) Hydronephrosis Status: Acute (3) Kidney stone Status: Acute (4) Kidney stone on left side Status: Acute (5) Renal colic Status: Acute (6) Renal colic Status: Acute (7) UTI (urinary tract infection) Status: Acute Review of Systems Constitutional: No see HPI, No fever, No chills, No sweats, No weight loss, No weakness, No fatigue, No problem reported Eyes: No see HPI, No worsening of vision, No eye pain, No redness, No discharge , No diplopia, No problem reported ENT: No see HPI, No hearing loss, No unusual epistaxis, No nasal symptoms, No sore throat, No tinnitus, No dental problems, No trouble swallowing, No problem reported Respiratory: No see HPI, No cough, No sputum, No wheezing, No shortness of breath, No dyspnea on exertion, No dyspnea at rest, No hemoptysis, No problem reported Cardiac: No see HPI, No chest pain, No orthopnea, No PND, No edema, No claudication, No palpitations, No problem reported Breast: No see HPI, No breast lump, No change in shape, No nipple discharge, No breast pain, No problem reported Abdomen: No pain, No nausea Musculoskeletal: No see HPI, No joint pain, No muscle pain, No swelling, No calf pain, No problem reported Female : + problem reported, No see HPI, No dysuria, No urinary frequency, No hematuria, No incontinence, No abnormal vaginal bleeding, No vaginal discharge Neurologic: No see HPI, No memory loss, No paralysis, No weakness, No numbness/ tingling, No vertigo, No balance problems, No problem reported Psychiatric: No see HPI, No depression symptoms, No anhedonism, No anxiety, No insomnia, No substance abuse, No problem reported Objective Vital Signs Date Time Temp Pulse Resp B/P (MAP) Pulse Ox O2 Delivery O2 Flow Rate FiO2 01/28/17 08:07 Room Air 01/28/17 07:56 37.0 100 20 120/70 (87) 96 Room Air 01/28/17 07:20 Room Air 01/28/17 02:52 36.8 117 16 107/65 (79) 96 Room Air 01/28/17 01:43 37.5 115 01/28/17 00:42 37.8 118 01/27/17 23:20 Room Air 01/27/17 23:14 37.8 122 14 105/66 (79) 94 Room Air 01/27/17 19:58 36.8 116 18 122/79 (93) 97 Room Air 01/27/17 19:03 38.0 120 18 101/66 (78) 95 Room Air 01/27/17 17:34 36.8 149 18 119/79 (92) 94 Room Air 01/27/17 17:05 37.2 143 18 125/82 (96) 95 Room Air 01/27/17 16:30 95 Room Air 01/27/17 16:30 38.2 146 20 122/74 (90) 95 Room Air 01/27/17 16:15 128 20 126/70 95 Room Air 01/27/17 16:00 135 20 121/74 95 Room Air 01/27/17 15:50 38.2 130 18 136/76 95 Room Air 01/27/17 15:40 126 24 137/89 99 Nasal Cannula 2 01/27/17 15:30 127 26 147/89 99 Nasal Cannula 2 01/27/17 15:20 124 24 144/91 99 Nasal Cannula 2 01/27/17 15:10 133 34 170/103 97 Nasal Cannula 2 01/27/17 15:00 39.2 151 32 156/104 99 Nasal Cannula 2 01/27/17 14:50 174 28 101/84 93 Room Air 01/27/17 14:40 91 19 130/83 94 Room Air 01/27/17 14:30 93 20 129/78 94 Room Air 01/27/17 14:20 94 18 130/69 98 Room Air 01/27/17 14:10 98 18 120/77 97 Room Air 01/27/17 14:04 36.5 97 16 117/66 100 Oxymask 10 01/27/17 09:43 106 18 141/97 99 Room Air 01/27/17 09:00 96 Room Air Physical Exam General Appearance: WD/WN, no apparent distress Eyes: normal inspection ENT: hearing grossly normal Neck: no adenopathy Respiratory/Chest: no respiratory distress, no accessory muscle use Cardiovascular: no edema, + tachycardia Abdomen: non tender, soft Extremities: non-tender Neurologic/Psychiatric: alert, normal mood/affect, oriented x 3 Skin: normal color, warm/dry Lymphatic: no adenopathy Laboratory Results Last 24 Hours Test 01/27/17 15:58 01/27/17 17:29 White Blood Count 8.67 K/uL Red Blood Count 4.58 M/uL Hemoglobin 12.7 g/dL Hematocrit 38.2 % Mean Corpuscular Volume 83.4 fL Mean Corpuscular Hemoglobin 27.7 pg Mean Corpuscular Hemoglobin Concent 33.2 g/dl Platelet Count 199 K/uL Mean Platelet Volume 9.6 fL Neutrophils (%) (Auto) 89.1 % Lymphocytes (%) (Auto) 8.9 % Monocytes (%) (Auto) 0.8 % Eosinophils (%) (Auto) 0.1 % Basophils (%) (Auto) 0.2 % Neutrophils # (Auto) 7.72 K/uL Lymphocytes # (Auto) 0.77 K/uL Monocytes # (Auto) 0.07 K/uL Eosinophils # (Auto) 0.01 K/uL Basophils # (Auto) 0.02 K/uL RDW Standard Deviation 39.5 fL RDW Coefficient of Variation 13.2 % Immature Granulocyte % (Auto) 0.9 % Immature Granulocyte # (Auto) 0.08 K/uL Sodium Level 138 mmol/L Potassium Level 3.6 mmol/L Chloride Level 105 mmol/L Carbon Dioxide Level 24 mmol/L Anion Gap 9.0 mmol/L Blood Urea Nitrogen 9 mg/dl Creatinine 0.77 mg/dl Est Creatinine Clear Calc Drug Dose 149.0 ml/min Estimated GFR () 127.9 Estimated GFR (Non- 110.4 BUN/Creatinine Ratio 11.5 Random Glucose 96 mg/dl Calcium Level 8.7 mg/dl Assessment and Plan E. coli bacteruria; fevers; obstructing calculus now s/p ureteral stent placement - cont ceftriaxone now - IVF - observe through this afternoon - if afebrile and not significantly tachycardic , I think d/c home on a course of Bactrim (culture appropriate) is reasonable
[2017-01-28] MEDS: DOCUSATE SODIUM 100 MG CAP PO SCH (08:38)
[2017-01-28] MEDS ORDERED: CEFTRIAXONE SOD INJ 1,000 MG in DEXTROSE 5% 50ML 50 ML IV SCH (09:00)
--- NOTE | 2017-01-28 10:38 | Anesthesiology Progress Note ---
Anesthesia Post Op Note Date & Time Jan 28, 2017 at 10:37 Vital Signs Vital Signs Past 12 Hours Date Time Temp Pulse Resp B/P (MAP) Pulse Ox O2 Delivery O2 Flow Rate FiO2 01/28/17 08:07 Room Air 01/28/17 07:56 37.0 100 20 120/70 (87) 96 Room Air 01/28/17 07:20 Room Air 01/28/17 02:52 36.8 117 16 107/65 (79) 96 Room Air 01/28/17 01:43 37.5 115 01/28/17 00:42 37.8 118 01/27/17 23:20 Room Air 01/27/17 23:14 37.8 122 14 105/66 (79) 94 Room Air Notes Mental Status: alert / awake / arousable, participated in evaluation Pt Amnestic to Procedure: Yes Nausea / Vomiting: adequately controlled Pain: adequately controlled Airway Patency, RR, SpO2: stable & adequate BP & HR: stable & adequate Hydration State: stable & adequate Anesthetic Complications: no major complications apparent
[2017-01-28 11:27] VITALS: BP 100/70; PULSE 95; TEMP 37; O2SAT 95
--- NOTE | 2017-01-28 13:05 | Discharge Summary ---
Discharge Summary Date of Service Jan 28, 2017. Discharge Summary Admission Date: Jan 27, 2017 at 16:03 Discharge Date: Jan 27, 2017 Discharge Disposition: Home Principal Diagnosis: kidney stone and infection Procedures: cystoscopy; left ureteral stent placement Medication Reconciliation New Medications: Sulfamethoxazole-Trimethoprim (Bactrim Ds 800MG/160MG) 1 Tab Tab 1 TAB PO BID, #10 TAB Continued Medications: Ibuprofen Tab (Motrin) 800 Mg Tab 800 MG PO UD PRN for Pain Oxycodone Immediate Rel Tab (Roxicodone Ir) 5 Mg Tab 1-2 TAB PO Q4H PRN for Severe Pain, #24 TAB (This prescription has been renewed) Discontinued Medications: Nitrofurantoin Monohyd Macrocr (Macrobid) 100 Mg Cap 100 MG PO BID Hospital Course Pt arrived in the ER after reporting fevers at home. She has previously been in the ER last week -at which time she was found to have a ureteral stone. Her culture from the first ER visit was resistant to cipro. Given the fevers, infection, and stone - she was taken to the OR immediately for a ureteral stent placement. She had continued fevers for 12 hrs post op and was simultaneously tachycardic. This resolved on POD#1. She was subjectively feeling well and given the recent cultures, I elected to discharge her home on appropriate antibiotics. Total time spent on discharge = This includes examination of the patient, discharge planning, medication reconciliation, and communication with other providers. Discharge Instructions Please see previously written d/c instructions.
[2017-01-28 13:09] VITALS: BP 100/70; PULSE 95; TEMP 37; O2SAT 95
== END 2017-01-28 14:10 | disposition home or self-care (01) | DRG 694 ==
LOC: C.EDB 06:44 → C.MSW 16:03 → ENRESERV 16:12
PROVIDERS: ADMIT Urology; ATTEND Urology
PROC: 0T778DZ Dilation of Left Ureter with Intraluminal Device, Via Natural or Artificial Opening Endoscopic (ICD-10-PCS; principal; 2017-01-27 09:45)
DX: N20.1 Calculus of ureter (principal); R82.71 Bacteriuria; B96.20 Unspecified Escherichia coli [E. coli] as the cause of diseases classified elsewhere; Z16.23 Resistance to quinolones and fluoroquinolones; R50.9 Fever, unspecified; R00.0 Tachycardia, unspecified; E66.9 Obesity, unspecified; Z68.38 Body mass index [BMI] 38.0-38.9, adult; Z84.1 Family history of disorders of kidney and ureter; Z82.49 Family history of ischemic heart disease and other diseases of the circulatory system; Z83.3 Family history of diabetes mellitus

== ENCOUNTER → 2017-02-04 | Outpatient (CLI) | payer OTHER ==
[~2017-02-04] MED LIST changes: +IBUP-1451 PO; +SULF800T23 PO
== END | disposition home or self-care (01) ==
LOC: C.LABSPEC 17:02
PROVIDERS: ATTEND Nurse Practitioner Adult Health
DX: N20.0 Calculus of kidney (principal)

== ENCOUNTER → 2017-02-04 | Outpatient (CLI) | payer OTHER ==
--- NOTE | 2017-02-04 11:52 | DIAGNOSTIC IMAGING REPORT ---
KUB CLINICAL HISTORY: 21 years-old Female presenting with N20.0 Nephrolithiasis. TECHNIQUE: Single supine view of the abdomen was obtained. COMPARISON: 01/27/[address] from 01/23/2017. FINDINGS: Mild stool burden throughout the colon. Possibly of small bowel gas, nonspecific. No gross pneumoperitoneum. The previous seen noted obstructing calculus in the proximal left ureter has been displaced and is now located within a left lower pole calyx. A left ureteral stent has been placed. No right renal calculi. Phlebolith noted in the right hemipelvis. Osseous structures normal. IMPRESSION: 1. Displacement of the proximal left ureteral calculus into the lower pole of the left renal collecting system status post placement of the left ureteral stent. Electronically signed by: Marcello Torres M.D. 02/04/2017 11:51 AM Dictated Date/Time: 02/04/2017 11:49 AM
== END | disposition home or self-care (01) ==
LOC: C.RAD 11:29
PROVIDERS: ATTEND Urology
DX: N20.0 Calculus of kidney (principal)

== ENCOUNTER → 2017-02-06 | Outpatient (CLI) | payer BC, OTHER ==
[~2017-02-06] MED LIST changes: +ACET-1256 PO; +CPR/500 PO; -OXYC1TAB3 PO; +OXYC7.5T65 PO
--- NOTE | 2017-02-06 12:04 | DIAGNOSTIC IMAGING REPORT ---
KUB CLINICAL HISTORY: 21 years-old Female presenting with N20.0 NephrolithiasisTO BE DONE EITHER THE NIGHT BEFORE OR [facility]. TECHNIQUE: Single supine view of the abdomen was obtained. COMPARISON: 02/04/2017. FINDINGS: Mild stool burden in the right colon. Nonobstructive bowel gas pattern. No gross pneumoperitoneum. Stable appearance of the left ureteral stent. Left lower pole renal calculus unchanged. No calcifications project over the right kidney or along the ureters. Stable distribution of the right pelvic phlebolith. Osseous structures normal. IMPRESSION: 1. Unchanged appearance of the left ureteral stent and left lower pole renal calculus. Electronically signed by: Marcello Torres M.D. 02/06/2017 12:03 PM Dictated Date/Time: 02/06/2017 12:01 PM
== END | disposition home or self-care (01) ==
LOC: C.RAD1850 11:49
PROVIDERS: ATTEND Nurse Practitioner Adult Health
DX: N20.0 Calculus of kidney (principal); Z96.0 Presence of urogenital implants

== ENCOUNTER → 2017-02-06 | Day surgery (SDC) | payer OTHER ==
[2017-02-05 11:59] VITALS: Ht 167.6 cm; Wt 109.1 kg
[~2017-02-06] VITALS: Ht 167.6 cm; Wt 109.1 kg
[~2017-02-06] MED LIST changes: -ACET-1256 PO; +CIPROFLOXACIN 400MG / D5W IV SCH; -CPR/500 PO; +LACTATED RINGER'S 1000ML 1,000 ML IV SCH; -OXYC7.5T65 PO
[2017-02-06 12:26] VITALS: BP 129/80; PULSE 80; TEMP 36.6; O2SAT 96
== END | disposition home or self-care (01) ==
LOC: X.SURG 12:00
PROVIDERS: ATTEND Urology
DX: N20.0 Calculus of kidney (principal); Z53.8 Procedure and treatment not carried out for other reasons; E66.9 Obesity, unspecified; Z87.891 Personal history of nicotine dependence

== ENCOUNTER → 2017-02-13 | Day surgery (SDC) | payer BC ==
[2017-02-12 07:10] VITALS: Ht 167.6 cm; Wt 109.1 kg
[~2017-02-13] VITALS: Ht 167.6 cm; Wt 109.1 kg
[~2017-02-13] MED LIST changes: +ACET-1256 PO; +ATROPINE SULFATE 0.1 MG/ML 5ML SYR IV PRN; +CPR/500 PO; +DEXAMETHASONE SOD INJ 4 MG/ML VIAL ONE; +EpHEDrine SULFATE INJ 50 MG/ML AMP IV PRN; +FENTANYL CITRATE INJ 50 MCG/1 ML 2 ML VIAL IV PRN; +FENTANYL CITRATE INJ 50 MCG/1 ML 2 ML VIAL ONE; +FLUMAZENIL 0.1 MG/1 ML 10 ML VIAL IV PRN; +HYDROmorphone INJ 2 MG/ML SYR/VIAL IV PRN; +LABETALOL HCL IV 5 MG/ML 20ML IV PRN; +LIDOCAINE HCL 2% 2 ML VIAL (20MG/ML) ONE; +MEPERIDINE HCL 25 MG/ML CARP IV PRN; +MIDAZOLAM HCL 1 MG/ML 2ML VIAL ONE; +NALOXONE HCL 0.4 MG/1 ML VIAL/CARP IV PRN; +ONDANSETRON INJ 2 MG/ML 2 ML VIAL IV PRN; +ONDANSETRON INJ 2 MG/ML 2 ML VIAL ONE; +OXYC7.5T65 PO; +PHENYLEPHRINE 100MCG/ML 5ML SYR IV PRN; +PROPOFOL IV EMULSION 10 MG/ML 20 ML VIAL IV ONE
--- NOTE | 2017-02-13 11:20 | History & Physical Bridge - SC ---
H&P Re-Evaluation Bridge Note: I have examined the patient, reviewed the History & Physical and in the interval since the performance of the History & Physical I have noted the following changes of clinical significance: No changes noted Left ESWL
--- NOTE | 2017-02-13 11:24 | Discharge Instructions ---
Discharge Instructions Date of Service Feb 13, 2017. Admission Reason for Admission: Stones Discharge Discharge Diagnosis / Problem: Stone Discharge Goals Goal(s): Decrease discomfort, Improve function Activity Recommendations Activity Limitations: resume your previous activity Lifting Limitations: gradually increase as tolerated Exercise/Sports Limitations: as tolerated Shower/Bathe: no limitations . Instructions / Follow-Up Instructions / Follow-Up May have blood in urine. May have flank pain or bruising. Current Hospital Diet Patient's current hospital diet: Reg Discharge Diet Recommended Diet: Regular Diet Procedures Procedures Performed: L ESWL Pending Studies Studies pending at discharge: no Medical Emergencies . Who to Call and When: Medical Emergencies: If at any time you feel your situation is an emergency, please call 911 immediately. . Non-Emergent Contact Non-Emergency issues call your: Primary Care Provider, Urologist Call Non-Emergent contact if: you have a fever, temperature is above 101, temperature is above 101.5 . . "Provider Documentation" section prepared by Yuriy Owen,. . VTE Core Measure Inpt VTE Proph given/why not?: SCD's
--- NOTE | 2017-02-13 12:13 | [facility] Operative Report ---
Operative Report Operative Date Feb 13, 2017. Pre-Operative Diagnosis Left Stone Post-Operative Diagnosis Same Procedure(s) Performed L ESWL Surgeon Brayden Swing Ride Operator Surgeon(s) None Estimated Blood Loss None Findings Left lower pole stone with stent in place. Specimens None Anesthesia General Complication(s) None Disposition Recovery Room / PACU Indications Left stone with stent in place. Description of Procedure Patient was consented and brought back to the operating room. Patient was placed under anesthesia in the supine position. Patient was prepped and draped in the regular sterile fashion. A time out was completed. With the time out completed, The patient was assessed with fluoroscopy. The stone was identified and position was triangulated. At this point, the shock waves commenced. The stone was monitored throughout the process with fluoroscopy to assess progression and maintain position. The stone was pulverized with 2500 shocks at a rate of 90 to the left renal stone at a maximum voltage of 4 with a total fluoroscopic time of 1:06. With the stone treated, the procedure ended. The patient was cleaned, aroused from anesthesia, and transferred to the pacu in stable condition having tolerated the procedure well with no complications. I was present and participated in all aspects of the procedure. The patient will be monitored in the PACU until transferred. I attest to the content of the Intraoperative Record and any orders documented therein. Any exceptions are noted below.
--- NOTE | 2017-02-13 12:36 | Anesthesia Progress Nt - [facility] ---
Anesthesia Post Op Note Date & Time Feb 13, 2017 at 12:36 Vital Signs Pain Intensity: 2 Vital Signs Past 12 Hours Date Time Temp Pulse Resp B/P (MAP) Pulse Ox O2 Delivery O2 Flow Rate FiO2 02/13/17 12:22 74 15 02/13/17 12:22 71 15 100 02/13/17 12:21 119/74 02/13/17 12:18 124/83 02/13/17 12:17 36.6 76 14 124/86 98 Mask 5 02/13/17 10:32 36.4 80 18 124/85 (98) 97 Room Air Notes Mental Status: alert / awake / arousable, participated in evaluation Pt Amnestic to Procedure: Yes Nausea / Vomiting: adequately controlled Pain: adequately controlled Airway Patency, RR, SpO2: stable & adequate BP & HR: stable & adequate Hydration State: stable & adequate Anesthetic Complications: no major complications apparent
[2017-02-13 12:52] VITALS: TEMP 36.6
[2017-02-13 13:17] VITALS: BP 136/85; PULSE 71; O2SAT 97
== END | disposition home or self-care (01) ==
LOC: X.SURG 09:57
PROVIDERS: ATTEND Urology
DX: N20.0 Calculus of kidney (principal); E66.9 Obesity, unspecified; Z90.89 Acquired absence of other organs; Z82.49 Family history of ischemic heart disease and other diseases of the circulatory system; Z83.42 Family history of familial hypercholesterolemia; J45.909 Unspecified asthma, uncomplicated; Z87.442 Personal history of urinary calculi

== ENCOUNTER → 2017-02-13 | Outpatient (CLI) | payer BC ==
[~2017-02-13] MED LIST changes: -ATROPINE SULFATE 0.1 MG/ML 5ML SYR IV PRN; -CIPROFLOXACIN 400MG / D5W IV SCH; -DEXAMETHASONE SOD INJ 4 MG/ML VIAL ONE; -EpHEDrine SULFATE INJ 50 MG/ML AMP IV PRN; -FENTANYL CITRATE INJ 50 MCG/1 ML 2 ML VIAL IV PRN; -FENTANYL CITRATE INJ 50 MCG/1 ML 2 ML VIAL ONE; -FLUMAZENIL 0.1 MG/1 ML 10 ML VIAL IV PRN; -HYDROmorphone INJ 2 MG/ML SYR/VIAL IV PRN; -LABETALOL HCL IV 5 MG/ML 20ML IV PRN; -LACTATED RINGER'S 1000ML 1,000 ML IV SCH; -LIDOCAINE HCL 2% 2 ML VIAL (20MG/ML) ONE; -MEPERIDINE HCL 25 MG/ML CARP IV PRN; -MIDAZOLAM HCL 1 MG/ML 2ML VIAL ONE; -NALOXONE HCL 0.4 MG/1 ML VIAL/CARP IV PRN; -ONDANSETRON INJ 2 MG/ML 2 ML VIAL IV PRN; -ONDANSETRON INJ 2 MG/ML 2 ML VIAL ONE; -PHENYLEPHRINE 100MCG/ML 5ML SYR IV PRN; -PROPOFOL IV EMULSION 10 MG/ML 20 ML VIAL IV ONE
--- NOTE | 2017-02-13 10:04 | DIAGNOSTIC IMAGING REPORT ---
KUB CLINICAL HISTORY: N20.0 nephrocalcinosis. COMPARISON STUDY: 02/06/2017 FINDINGS: Left ureteral stent remains in good position. There is a stable lower pole left renal calcification. There are no new or interval findings. There is a soft tissue vascular calcification right lateral soft tissue pelvis. Bowel pattern is nonobstructive. IMPRESSION: Left ureteral stent in good position. Unchanged stable lower pole left renal calcification. The above report was generated using voice recognition software. It may contain grammatical, syntax or spelling errors. Electronically signed by: Carlos Alberto Lomeli M.D. 02/13/2017 10:02 AM Dictated Date/Time: 02/13/2017 10:01 AM
== END | disposition home or self-care (01) ==
LOC: C.RAD1850 09:44
PROVIDERS: ATTEND Nurse Practitioner Adult Health
DX: N20.0 Calculus of kidney (principal); Z96.0 Presence of urogenital implants

== ENCOUNTER → 2017-02-18 | Outpatient (CLI) | payer BC | END | disposition home or self-care (01) | LOC: C.LABSPEC 17:06 | PROVIDERS: ATTEND Urology | DX: N20.0 Calculus of kidney (principal) ==

== ENCOUNTER → 2017-02-18 | Outpatient (CLI) | payer BC ==
--- NOTE | 2017-02-18 12:07 | DIAGNOSTIC IMAGING REPORT ---
KUB CLINICAL HISTORY: N20.0 Nephrolithiasis COMPARISON STUDY: 02/13/2017 FINDINGS: A double-pigtail left-sided nephroureteral stent is again visualized. There is a 2 mm lower pole left renal calculus. There is no pathologic bowel dilatation. There is a stable right pelvic basin calcification, likely representing a phlebolith. IMPRESSION: 1. No change in the position of the left-sided double pigtail nephroureteral stent 2. Stable 2 mm lower pole left renal calculus Electronically signed by: Yasir Olivas M.D. 02/18/2017 12:06 PM Dictated Date/Time: 02/18/2017 12:05 PM
== END | disposition home or self-care (01) ==
LOC: C.RAD 11:08
PROVIDERS: ATTEND Urology
DX: N20.0 Calculus of kidney (principal); Z96.0 Presence of urogenital implants

== ENCOUNTER 2017-02-19 18:42 | Emergency (ER) | payer BC ==
[~2017-02-19] VITALS: Ht 172.7 cm; Wt 110.0 kg
[~2017-02-19 18:42] MED LIST changes: -ACET-1256 PO; -CPR/500 PO
[2017-02-19 18:51] VITALS: Ht 172.7 cm; Wt 110.0 kg
[2017-02-19] MEDS ORDERED: SODIUM CHLORIDE 0.9% 500ML 500 ML IV STA ×2 (19:09→20:23)
--- NOTE | 2017-02-19 19:17 | EMERGENCY ROOM VISIT NOTE ---
History First contact with patient: 18:55 Chief Complaint: FEVER Stated Complaint: FEVER KIDNEY STONE History of Present Illness The patient is a 21 year old female who presents to the Emergency Room with complaints of fever that started yesterday. The patient has been recently diagnosed with a left-sided kidney stone. She underwent stent placement 2 weeks ago. 6 days ago, she underwent lithotripsy. The stent was then subsequently removed 2 days ago. She developed a fever the day after it was removed. She denies any urinary symptoms such as dysuria, hematuria or urinary frequency. Her fever was 100.5F at home. Her last dose of Tylenol was at 4 PM this afternoon. The patient does complain of mild left flank pain. She denies any nausea or vomiting. No other infectious symptoms. The patient contacted her urologist office today who advised her to come to the emergency department for evaluation. Review of Systems 10 system review performed and negative unless noted in HPI or below Past Medical/Surgical History Medical Problems: (1) Asthma Surgical Problems: (1) S/P tonsillectomy and adenoidectomy Kidney stones Family History Diabetes mellitus FHx: cancer Hypertension Kidney disease Kidney stones Social History Smoking Status: Never Smoker Alcohol Use: occasionally Marital Status: in relationship Housing Status: lives with family Occupation Status: employed Current/Historical Medications Scheduled Ciprofloxacin (Ciprofloxacin HCl), 500 MG PO BID Scheduled PRN Acetaminophen (Tylenol), 1,000 MG PO Q6H PRN for Pain or Fever Physical Exam Vital Signs Date Time Temp Pulse Resp B/P (MAP) Pulse Ox O2 Delivery O2 Flow Rate FiO2 02/19/17 20:10 37.6 115 18 118/92 99 Room Air 02/19/17 18:51 36.7 130 16 118/78 99 Room Air Physical Exam VITALS: Vitals are noted on the nurse's note and reviewed by myself. Vital signs stable. GENERAL: 21-year-old female, in no acute distress, nondiaphoretic, well- developed well-nourished. SKIN: The skin was without rashes, erythema, edema, or bruising. HEAD: Normocephalic atraumatic. MOUTH: Mucous membranes slightly dry. NECK: Supple without nuchal rigidity. No lymphadenopathy. Cervical spine is nontender. No JVD. HEART: Tachycardic, regular rhythm without murmurs gallops or rubs. LUNGS: Clear to auscultation bilaterally without wheezes, rales or rhonchi. No accessory muscle use. ABDOMEN: Positive bowel sounds x 4.Soft, nontender, without organomegaly. No guarding or rebound tenderness. Mild left-sided CVA tenderness noted. MUSCULOSKELETAL: No muscle atrophy, erythema, or edema noted. Strength 5/5 throughout. NEURO: Patient was alert and oriented to person place and time. Normal sensation to touch. No focal neurological deficits. Medical Decision & Procedures ER Provider Diagnostic Interpretation: KUB Patient Name: SEMAJ CATALAN Unit Number: [id number] Dictated: 02/19/172014 Transcribed: 02/19/172014 [employer] Printed Date/Time: [~ rep prt dt]/[~ rep prt tm] [~ rep ct labl] - [~ rep ct ivnm] [facility] [place] [address] Dictated: 02/19/172014 Transcribed: 02/19/172014 [employer] Printed Date/Time: [~ rep prt dt]/[~ rep prt tm] [~ rep ct labl] - [~ rep ct ivnm] IMPRESSION: 1. Interval removal of the left ureteral stent. No ureteral calculi identified. 2. Stable left-sided nephrolithiasis. Electronically signed by: Mesfin Crespo M.D. 02/19/2017 8:17 PM Dictated Date/Time: 02/19/2017 8:15 PM The status of this report is Signed. Draft = Not yet reviewed or approved by Radiologist. Signed = Reviewed and approved by Radiologist. <AttendingPhy></AttendingPhy> <FamilyPhy>Shala Peoples PA-C</FamilyPhy> <PrimaryPhy >Shala Peoples PA-C</PrimaryPhy> <UnitNumber>[id number]</UnitNumber> <VisitNumber> [id number]</VisitNumber> <PatientName>SEMAJ CATALAN</PatientName> < DateOfBirth>1995</DateOfBirth> <Location>[facility]</Location> <ServiceDate></ServiceDate> <MNE>ESINDI</MNE> <OrderingPhy>Urban, Veronica P PA-C</ OrderingPhy> <OrderingPhyMNE>f rep ord dr normane</OrderingPhyMNE> <DictatingPhyMNE> f rep dict mne</DictatingPhyMNE> <CCListMNE>f rep ct mne</CCListMNE> < AdmittingPhyMNE>f pt admit dr ahn</AdmittingPhyMNE> <AttendingPhyMNE>f pt attend dr ahn</AttendingPhyMNE> <ConsultingPhyMNE>f pt consult dr ahn</ConsultingPhyMNE> <FamilyPhyMNE>f pt fam dr ahn</FamilyPhyMNE> <OtherPhyMNE>f pt other dr normane</OtherPhyMNE> < PrimaryPhyMNE>f pt prim care dr ahn</PrimaryPhyMNE> <ReferringPhyMNE>f pt referring dr ahn</ReferringPhyMNE> Laboratory Results 02/19/17 19:14 Red Blood Count 4.79, Mean Corpuscular Volume 85.0, Mean Corpuscular Hemoglobin 28.4, Mean Corpuscular Hemoglobin Concent 33.4, Mean Platelet Volume 9.5, Neutrophils (%) (Auto) 71.9, Lymphocytes (%) (Auto) 20.0, Monocytes (%) (Auto) 7.8, Eosinophils (%) (Auto) 0.0, Basophils (%) (Auto) 0.1, Neutrophils # (Auto) 9.60, Lymphocytes # (Auto) 2.68, Monocytes # (Auto) 1.04, Eosinophils # (Auto) 0.00, Basophils # (Auto) 0.02 02/19/17 19:14 Test 02/19/17 19:14 White Blood Count 13.37 K/uL (4.8-10.8) Red Blood Count 4.79 M/uL (4.2-5.4) Hemoglobin 13.6 g/dL (12.0-16.0) Hematocrit 40.7 % (37-47) Mean Corpuscular Volume 85.0 fL (80-100) Mean Corpuscular Hemoglobin 28.4 pg (25-34) Mean Corpuscular Hemoglobin Concent 33.4 g/dl (32-36) Platelet Count 302 K/uL (130-400) Mean Platelet Volume 9.5 fL (7.4-10.4) Neutrophils (%) (Auto) 71.9 % Lymphocytes (%) (Auto) 20.0 % Monocytes (%) (Auto) 7.8 % Eosinophils (%) (Auto) 0.0 % Basophils (%) (Auto) 0.1 % Neutrophils # (Auto) 9.60 K/uL (1.4-6.5) Lymphocytes # (Auto) 2.68 K/uL (1.2-3.4) Monocytes # (Auto) 1.04 K/uL (0.11-0.59) Eosinophils # (Auto) 0.00 K/uL (0-0.5) Basophils # (Auto) 0.02 K/uL (0-0.2) RDW Standard Deviation 42.7 fL (36.4-46.3) RDW Coefficient of Variation 13.7 % (11.5-14.5) Immature Granulocyte % (Auto) 0.2 % Immature Granulocyte # (Auto) 0.03 K/uL (0.00-0.02) Urine Color YELLOW Urine Appearance CLEAR (CLEAR) Urine pH 8.0 (4.5-7.5) Urine Specific [place] 1.008 (1.000-1.030) Urine Protein NEG (NEG) Urine Glucose (UA) NEG (NEG) Urine Ketones NEG (NEG) Urine Occult Blood NEG (NEG) Urine Nitrite NEG (NEG) Urine Bilirubin NEG (NEG) Urine Urobilinogen NEG (NEG) Urine Leukocyte Esterase TRACE (NEG) Urine WBC (Auto) 5-10 /hpf (0-5) Urine RBC (Auto) 0-4 /hpf (0-4) Urine Hyaline Casts (Auto) 0 /lpf (0-5) Urine Epithelial Cells (Auto) 10-20 /lpf (0-5) Urine Bacteria (Auto) 1+ (NEG) Urine Test NEG (NEG) Anion Gap 6.0 mmol/L (3-11) Est Creatinine Clear Calc Drug Dose 141.0 ml/min Estimated GFR () 118.6 Estimated GFR (Non- 102.3 BUN/Creatinine Ratio 11.2 (10-20) Calcium Level 9.4 mg/dl (8.5-10.1) Medications Administered Medications (Trade) Dose Ordered Sig/Jr Route Start Time Stop Time Status Last Admin Dose Admin Sodium Chloride 500 ml @ 999 mls/hr Q31M STAT IV 02/19/17 19:09 02/19/17 19:39 DC 02/19/17 19:09 999 MLS/HR Ceftriaxone Sodium (Rocephin Inj) 1 gm NOW STAT IV 02/19/17 19:24 02/19/17 19:26 DC 02/19/17 20:05 1 GM Ibuprofen (Advil Tab) 800 mg NOW STAT PO 02/19/17 20:23 02/19/17 20:25 DC 02/19/17 20:27 800 MG ED Course Patient was seen and examined Vital signs including blood pressure were reviewed medications list was verified with patient Labs were obtained, and a saline lock was established The patient declined pain medication Imaging was performed and reviewed The patient was reassessed and resting comfortably. She was given 1 dose of Rocephin and 500 mL in normal saline. The case was discussed with urology on-call. The case was also discussed with my supervising physician The patient was given 1 dose of Motrin 800 mg. She was also hydrated with another 500 mL normal saline. I reviewed discharge instructions the patient. They voiced understanding and had no further questions. Medical Decision Differential diagnosis: UTI, retained stone, pyelonephritis, renal abscess, This patient is a 21-year-old female that presents to emergency department with complaints of fever with a known history of kidney stone. The patient underwent lithotripsy 6 days ago. She had her stent removed yesterday. She developed a fever today. She complains of mild soreness in her left flank. Otherwise, she has no complaints. On exam, she is nontoxic in appearance. She is afebrile here. She does have mild leukocytosis. She has 5-10 WBCs in her urine. Her renal function is intact. I reviewed her past cultures. She has grown out Escherichia coli resistant to quinolones in the past. The patient was apparently started on Cipro yesterday by her urologist. She was given 1 dose of Rocephin in the emergency department. The case was discussed with urology. Her antibiotics were switched to Bactrim. I believe she is stable to be discharged home with close follow-up. The patient is comfortable with this plan. She agrees to return to the emergency department with any new, worsening or concerning symptoms; especially, fever, nausea, vomiting or pain. Of note, the patient was tachycardic. This is however not new. She reports tachycardia during her hospital admission. An EKG was performed and reportedly normal. The patient relates this to anxiety about being in the hospital. This chart was completed in part utilizing [employer] Speech Voice Recognition software. Attempts were made to minimize the grammatical errors, random word insertions, pronoun errors and incomplete sentences. Any formal questions or concerns about the content, text or information contained within the body of this dictation should be directly addressed to the provider for clarification. Medication Reconcilliation Current Medication List: was personally reviewed by me Blood Pressure Screening Patient's blood pressure: Normal blood pressure Consults Consulting Physician: Dr. Owen Impression Primary Impression: Fever Departure Information Dispostion Home / Self-Care Condition GOOD Prescriptions Sulfa/Trimethoprim (Bactrim Ds 800MG/160MG) Tab 1 TAB PO BID for 10 Days, #20 TAB Prov: Veronica Luke PA-C 02/19/17 Referrals Shala Peoples PA-C (PCP) Marino Armendariz M.D. Patient Instructions My [facility] Additional Instructions You were evaluated in the emergency department today for a fever. This is likely due to a UTI. Please stop Cipro. Begin Bactrim 1 tab twice daily. This may be started tomorrow morning as you have received antibiotics in the emergency department. Please call the urologist office in the morning for a follow-up appointment. Ibuprofen 800 mg and/or Tylenol 1000 mg every 8 hours. You may also alternate these medications for more effective pain relief: Ibuprofen --4 HRS--> Tylenol --4 HRS--> ibuprofen --4 HRS--> Tylenol .... It is very important to stay well-hydrated. Increase fluids over the next several days. Please do not hesitate to return to the emergency department with any new, worsening or concerning symptoms; especially, fever, increased abdominal pain or vomiting
[2017-02-19] MEDS ORDERED: CEFTRIAXONE SOD INJ 1 GM ADDVIAL IV STA (19:24)
[2017-02-19 19:26] LABS: BASO % 0.1 %; BASO ABS # 0.02 K/uL (0-0.2); COMPLETE YES; HEMATOCRIT 40.7 % (37-47); IG% 0.2 %; LYMPH ABS # 2.68 K/uL (1.2-3.4); MEAN CORPUSCULAR HEMOGLOBIN 28.4 pg (25-34); MEAN CORPUSCULAR HGB CONC 33.4 g/dl (32-36); MEAN PLATELET VOLUME 9.5 fL (7.4-10.4); MONO % 7.8 %; NEUT % 71.9 %; PLATELET COUNT 302 K/uL (130-400); RED BLOOD COUNT 4.79 M/uL (4.2-5.4); WHITE BLOOD COUNT 13.37 K/uL (4.8-10.8)
[2017-02-19 19:31] LABS: URINE APPEARANCE CLEAR (CLEAR); URINE BILIRUBIN NEG (NEG); URINE COLOR YELLOW; URINE NITRITE NEG (NEG); URINE SPECIFIC GRAVITY 1.008 (1.000-1.030); UROBILINOGEN NEG (NEG)
[2017-02-19 19:36] LABS: MANUAL MICROSCOPIC REQUIRED? NO; REVIEW REQ? NO
[2017-02-19] MEDS ORDERED: ACET-1256 PO (19:45)
[2017-02-19] MEDS ORDERED: CPR/500 PO (19:45)
[2017-02-19 19:58] LABS: BUN/CREATININE RATIO 11.2 (10-20); CALCIUM 9.4 mg/dl (8.5-10.1); CREATININE 0.82 mg/dl (0.60-1.20); POTASSIUM 3.7 mmol/L (3.5-5.1)
--- NOTE | 2017-02-19 20:18 | DIAGNOSTIC IMAGING REPORT ---
KUB HISTORY: L flank pain fever s/p stent removal yesterday COMPARISON: KUB 02/18/2017. FINDINGS: The bowel gas pattern is unremarkable. There are no dilated loops of small bowel to suggest an obstruction. Interval removal of the left ureteral stent. Stable punctate calcification within the right deep pelvis consistent with a phlebolith. No ureteral calculi identified. Stable 2 mm stone within the lower pole the left kidney. No right renal calculi. No pneumoperitoneum or pneumatosis. IMPRESSION: 1. Interval removal of the left ureteral stent. No ureteral calculi identified. 2. Stable left-sided nephrolithiasis. Electronically signed by: Mesfin Crespo M.D. 02/19/2017 8:17 PM Dictated Date/Time: 02/19/2017 8:15 PM
[2017-02-19] MEDS ORDERED: IBUPROFEN 200 MG TAB PO STA (20:23)
[2017-02-19] MEDS ORDERED: SULF800T23 PO (20:44)
[2017-02-19 21:26] VITALS: BP 126/74; TEMP 37.2
[2017-02-19 21:40] VITALS: PULSE 102; O2SAT 99
== END 2017-02-19 21:41 | disposition home or self-care (01) ==
LOC: C.EDB 18:42 → C.EDA 21:41
DX: R50.9 Fever, unspecified (principal); J45.909 Unspecified asthma, uncomplicated; Z87.442 Personal history of urinary calculi; Z90.89 Acquired absence of other organs; Z98.890 Other specified postprocedural states; Z83.3 Family history of diabetes mellitus; Z82.49 Family history of ischemic heart disease and other diseases of the circulatory system; Z84.1 Family history of disorders of kidney and ureter

== ENCOUNTER 2021-02-18 07:43 | Inpatient (IN) ==
[2021-02-18] MEDS ORDERED: OXYTOCIN 30 UNITS/500 ML BAG IV PRN (08:41)
[2021-02-18] MEDS ORDERED: DINOPROSTONE 10 MG INSERT PV ONE ×3 (09:00→22:39)
[2021-02-18 09:38] LABS: Hematocrit (blood only) 34.5 % (37-47); Mean Corpuscular Hemoglobin 25.6 pg (25-34); Mean Corpuscular Hgb Conc 31.9 g/dL (32-36); Mean Corpuscular Volume 80.2 fL (80-100); Platelet Count 252 K/uL (130-400); RDW Coefficient of Variation 14.7 % (11.5-14.5); RDW Standard Deviation 42.9 fL (36.4-46.3)
--- NOTE | 2021-02-18 11:18 | Labor Progress Brief Note ---
Date of Service February 18, 2021 Assessment & Plan (1) Obesity affecting in third trimester: Plan: Induction of class III obesity at term Pt is COVID +ve on admission Doing well FHR; CAT1 Ctx; Minimal VE; Ft/thick/post Cervidil #1 placed in vagina Admission and Anticipated Discharge Date Admission Date: February 18, 2021 Results & Data ([facility]) Vital Signs (Past 12 Hours) Vital Signs Temp Pulse Resp BP 02/18/21 10:46 36.7 C 90 18 133/79 02/18/21 09:17 101 H 111/76 02/18/21 08:16 105 H 124/69 02/18/21 08:15 36.8 C 18
[2021-02-18] MEDS: PENICILLIN V POTASSIUM 500 MG TAB PO SCH ×3 (13:08→21:14)
[2021-02-18] MEDS ORDERED: FAMOTIDINE 20 MG TAB PO ONE (21:30)
--- NOTE | 2021-02-18 23:04 | Labor Progress Brief Note ---
Date of Service February 18, 2021 Assessment & Plan (1) Obesity affecting in third trimester: Plan: Pt doing well FHR; CAT1 Ctx: Mnimal VE; FT/thick/post Cervidil #1 removed and a 2nd one placed in vagina Admission and Anticipated Discharge Date Admission Date: February 18, 2021 Results & Data ([facility]) Vital Signs (Past 12 Hours) Vital Signs Temp Pulse Resp BP 02/18/21 22:49 36.5 C 72 18 112/63 02/18/21 19:48 36.6 C 104 H 18 108/66 02/18/21 15:32 36.7 C 90 18 122/82
[2021-02-19] MEDS ORDERED: FAMOTIDINE 20 MG TAB PO PRN (09:00)
[2021-02-19] MEDS: PENICILLIN V POTASSIUM 500 MG TAB PO SCH ×3 (09:08→18:11)
--- NOTE | 2021-02-19 11:39 | Labor Progress Brief Note ---
Date of Service February 19, 2021 Assessment & Plan Admission and Anticipated Discharge Date Admission Date: February 18, 2021 Physical Exam Genitourinary: Manual OB Exam: + cervical dilation fingertip, + cervical effacement 50% and + station (Cervidil fell out, not ripe yet, Will continue with Cytotec 50 mg q 4 hrs) high OB Exam Monitor Tracing: + external FHT monitor used, + external uterine monitor used and + category I Results & Data ([facility]) Vital Signs (Past 12 Hours) Vital Signs Temp Pulse Resp BP 02/19/21 09:02 36.9 C 107 H 18 110/62 02/19/21 03:03 36.7 C 93 H 16 111/66
[2021-02-19] MEDS ORDERED: miSOPROStoL 50 MCG TAB ONE (11:44)
[2021-02-19] MEDS: miSOPROStoL 50 MCG TAB PO SCH ×2 (11:50→16:02)
[2021-02-19] MEDS: LACTATED RINGER'S 1,000 ML IV PRN ×2 (14:10→15:02)
[2021-02-19] MEDS ORDERED: SODIUM CHLORIDE 0.9% INJ 10 ML VIAL ONE (14:12)
[2021-02-19] MEDS ORDERED: fentaNYL citrate 100 MCG/2 ML VIAL ONE (14:12)
[2021-02-19] MEDS ORDERED: ePHEDrine sulfate 50 MG/ML AMP ONE (14:12)
[2021-02-19] MEDS ORDERED: BUPIVACAINE 0.25% 30 ML VIAL ONE (14:12)
[2021-02-19] MEDS ORDERED: fentaNYL 2MCG/ML ROPIVACAINE 1.25MG/ML 100 ML BAG EPI ONE (14:13)
[2021-02-19] MEDS ORDERED: fentaNYL 2MCG/ML ROPIVACAINE 1.25MG/ML 100 ML BAG EPI PRN (14:23)
[2021-02-19] MEDS ORDERED: diphenhydrAMINE 50 MG/ML VIAL IV PRN (14:23)
[2021-02-19] MEDS ORDERED: NALOXONE HCL 0.4 MG/1 ML VIAL/CARP IV PRN (14:23)
[2021-02-19] MEDS ORDERED: ePHEDrine sulfate 50 MG/ML AMP IV PRN (14:23)
[2021-02-19] MEDS ORDERED: NALOXONE HCL 1 MG in SODIUM CHLORIDE 0.9% 1000ML 1,000 ML IV PRN (14:23)
[2021-02-19] MEDS ORDERED: NALBUPHINE HCL INJ 10 MG/ML AMP IV PRN (14:23)
[2021-02-19] MEDS ORDERED: ONDANSETRON INJ 2 MG/ML 2 ML VIAL IV PRN (14:23)
--- NOTE | 2021-02-19 14:24 | Anesthesiology Consultation ---
Date of Service February 19, 2021 Assessment & Plan (1) Encounter for pre-operative examination: Chart Review Chart Review: Patient NOT seen in Pre Admission Testing and Acceptable Risk for Labor Epidural Consults Requested none History Height/Weight Height: 5 ft 6 in Weight: 114.305 kg Allergies Allergy/AdvReac Type Severity Reaction Status Date / Time No Known Allergies Allergy Verified 02/18/21 08:14 Medications Home Medications Medication Instructions Recorded Confirmed Last Taken breast pump #1 ea 03/30/18 Unknown penicillin V potassium 500 mg 500 mg PO QID 02/18/21 02/18/21 02/18/21 07:00 tablet Active Medications Generic Name Dose Route Start Last Admin Trade Name Freq PRN Reason Stop Dose Admin Famotidine 20 mg 02/19/21 09:00 02/19/21 09:23 Famotidine 20 Mg Tab PO 03/21/21 08:59 20 mg BID PRN Administration Heartburn Lactated Ringer's 1,000 mls @ 125 mls/hr 02/18/21 08:41 02/19/21 14:10 Lr IV 02/20/21 08:40 999 mls/hr .Q8H PRN Administration L&D Protocol Protocol Misoprostol 50 mcg 02/19/21 12:00 02/19/21 11:50 Misoprostol 50 Mcg Tab PO 03/21/21 11:59 50 mcg Q4 JENA Administration Penicillin V Potassium 500 mg 02/18/21 13:00 02/19/21 13:04 Penicillin V Potassium 500 Mg Tab PO 02/23/21 12:59 500 mg QID JENA Administration Ropivacaine 100 ml 02/19/21 14:23 02/19/21 14:54 Fentanyl 2mcg/Ml Ropivacaine 1.25mg/Ml 100 Ml Bag EPI 02/20/21 14:22 100 ml PRN PRN Administration Pain R/T Labor Protocol Past Medical History Medical History Depression No meds GERD (gastroesophageal reflux disease) Kidney stones Obesity UTI (urinary tract infection) Currently taking PO Penicillin Past Family History Family History Other No known health problems Past Surgical History Surgical History S/P cystoscopy with ureteral stent placement S/P tonsillectomy Past Anesthesia History No Hx of Anesthesia Complications and No Family Hx of Anesthesia Complications History of PONV No Hx of PONV and No Hx of Motion Sickness Social History Smoking Status: Never smoker Hx Alcohol Use: No Hx Substance Use: No Physical Exam Vital Signs Last Vital Signs Temp 36.9 C 02/19/21 14:31 Pulse 108 H 02/19/21 14:58 Resp 18 02/19/21 14:31 BP 119/70 02/19/21 14:58 Testing Laboratory Results 02/18/21 09:24 Blood Type O Positive 02/18/21 09:24 Antibody Screen NEGATIVE 02/18/21 09:24
[2021-02-19] MEDS ORDERED: OXYTOCIN 30 UNITS/500 ML BAG IV PRN ×2 (20:17→22:27)
[2021-02-19] MEDS ORDERED: DIPHTHERIA/TETANUS/PERTUSSIS 0.5 ML SYR/VIAL IM ONE (22:27)
[2021-02-19] MEDS ORDERED: bisacodyL 10 MG SUPP PR PRN (22:27)
[2021-02-19] MEDS ORDERED: ACETAMINOPHEN 325 MG TAB PO PRN (22:27)
[2021-02-19] MEDS ORDERED: HYDROCORTISONE ACETATE 25 MG SUPP PR PRN (22:27)
[2021-02-19] MEDS ORDERED: SUPERCREAM 0.870% 15 GM JAR EXT PRN (22:27)
[2021-02-19] MEDS ORDERED: BENZOCAINE 20% AER SPR 82.5 GM CAN EXT PRN (22:27)
--- NOTE | 2021-02-19 22:30 | Delivery Summary ---
Vaginal Delivery Summary Date of Service February 19, 2021 Vaginal Delivery Summary Delivery Note live male FESTUS over intact perineum with delayed cord clamping with Apgars 8/9 weight pending. Cord blood obtained followed by spontaneous delivery of intact placenta. No tears. EBL 100 ml. Final sponge and instrument count are correct. Mom and baby stable.
--- NOTE | 2021-02-19 22:45 | Anesthesia Procedure Note ---
Date of Service February 19, 2021 Anesthesia Post Epidural Note Vital Signs Vital Signs: Temp Pulse Resp BP Pulse Ox 37.2 C 130 H 18 106/60 100 02/19/21 21:05 02/19/21 22:32 02/19/21 22:30 02/19/21 22:32 02/19/21 22:12 Pain Intensity Lower Back: Pain Intensity: 1 Notes Mental Status: alert / awake / arousable and participated in evaluation Patient Amnestic to Procedure: No Nausea / Vomiting: adequately controlled Pain: adequately controlled Airway Patency, RR, SpO2: stable & adequate BP & HR: stable & adequate Hydration State: stable & adequate Neuraxial Anesthesia: was administered and sensory block is resolving Anesthetic Complications: no major complications apparent and Pt Satisfied with anesthetic care Epidural: Removed without complications and With tip intact
[2021-02-20] MEDS: PENICILLIN V POTASSIUM 500 MG TAB PO SCH ×5 (00:24→20:22)
[2021-02-20] MEDS: IBUPROFEN 600 MG TAB PO PRN ×5 (02:37→20:23)
[2021-02-20 07:32] LABS: Hematocrit (blood only) 33.3 % (37-47); Hemoglobin 10.8 g/dL (12.0-16.0); Mean Corpuscular Hgb Conc 32.4 g/dL (32-36); Mean Corpuscular Volume 80.2 fL (80-100); Mean Platelet Volume 9.7 fL (7.4-10.4); Platelet Count 224 K/uL (130-400); RDW Coefficient of Variation 14.9 % (11.5-14.5); RDW Standard Deviation 43.9 fL (36.4-46.3); Red Blood Count 4.15 M/uL (4.2-5.4); White Blood Count 9.59 K/uL (4.8-10.8)
[2021-02-20] MEDS: DOCUSATE SODIUM 100 MG CAP PO SCH ×2 (07:49→20:22)
[2021-02-20] MEDS: PRENATAL VITAMIN 1 TAB PO SCH (08:26)
[2021-02-20] MEDS: FERROUS SULFATE 325 MG TAB PO SCH (08:26)
[2021-02-20] MEDS ORDERED: PENICILLIN V POTASSIUM 500 MG PO SCH (09:00)
--- NOTE | 2021-02-20 09:39 | Obstetrical Progress Note ---
Date of Service February 20, 2021 Assessment & Plan Admission and Anticipated Discharge Date Admission Date: February 18, 2021 Subjective Patient is seen and examined. She feels well, no complaints. Ambulating without dizziness Voiding without difficulty Tolerating regular diet with out N&V Bleeding is minimal No fever/ chills/ CP/ SOB/ N&V/ MENDOZA/ sore throat/ Leg pain No COVID 19 symptoms at all Breast feeding without problems Lab Results 02/18/21 02/18/21 02/18/21 Range/Units 07:40 09:24 09:24 WBC 5.60 (4.8-10.8) K/uL RBC 4.30 (4.2-5.4) M/uL Hgb 11.0 L (12.0-16.0) g/dL Hct 34.5 L (37-47) % MCV 80.2 (80-100) fL MCH 25.6 (25-34) pg MCHC 31.9 L (32-36) g/dL RDW Std Deviation 42.9 (36.4-46.3) fL RDW Coeff of Fiona 14.7 H (11.5-14.5) % Plt Count 252 (130-400) K/uL MPV 10.0 (7.4-10.4) fL SARS-CoV-2, RNA, NAAT POSITIVE A* (NEGATIVE) Blood Type O Positive Antibody Screen NEGATIVE 02/20/21 Range/Units 07:06 WBC 9.59 (4.8-10.8) K/uL RBC 4.15 L (4.2-5.4) M/uL Hgb 10.8 L (12.0-16.0) g/dL Hct 33.3 L (37-47) % MCV 80.2 (80-100) fL MCH 26.0 (25-34) pg MCHC 32.4 (32-36) g/dL RDW Std Deviation 43.9 (36.4-46.3) fL RDW Coeff of Fiona 14.9 H (11.5-14.5) % Plt Count 224 (130-400) K/uL MPV 9.7 (7.4-10.4) fL SARS-CoV-2, RNA, NAAT (NEGATIVE) Blood Type Antibody Screen Vital Signs Temp Pulse Pulse Resp BP BP Pulse Ox 02/20/21 07:30 36.5 C 75 18 120/86 02/20/21 03:06 37.1 C 74 18 136/74 02/20/21 00:45 37.1 C 110 H 18 116/68 02/20/21 00:32 118 H 118/64 02/20/21 00:17 121 H 121/59 L 02/20/21 00:15 37.1 C 118 H 20 118/64 02/20/21 00:02 123 H 115/59 L 02/19/21 23:47 127 H 113/58 L 02/19/21 23:45 18 02/19/21 23:32 130 H 118/60 02/19/21 23:17 123 H 124/69 02/19/21 23:15 18 118/60 02/19/21 23:02 117 H 120/66 02/19/21 23:00 16 02/19/21 22:47 123 H 117/61 02/19/21 22:45 130 H 18 106/60 02/19/21 22:32 130 H 106/60 02/19/21 22:30 131 H 18 02/19/21 22:15 131 H 18 138/74 02/19/21 22:12 147 H 100 02/19/21 22:07 158 H 100 02/19/21 22:05 176 H 126/88 02/19/21 22:02 135 H 100 02/19/21 22:00 20 02/19/21 21:57 139 H 100 02/19/21 21:52 127 H 100 02/19/21 21:47 150 H 100 02/19/21 21:42 130 H 100 PE: General: Alert, orientedx3, NAD Abd: soft, NT, fundus firm, below Umbilicus Perineum intact, Lochia rubra minimal Ext; NT, no edema AP: 25 yo s/p , ppd# 1 VSS Afebrile doing well Continue routine care All questions were answered D/C home tomorrow Results & Data ([facility]) Vital Signs (Past 12 Hours) Vital Signs Temp Pulse Pulse Resp BP BP Pulse Ox 02/20/21 07:30 36.5 C 75 18 120/86 02/20/21 03:06 37.1 C 74 18 136/74 02/20/21 00:45 37.1 C 110 H 18 116/68 02/20/21 00:32 118 H 118/64 02/20/21 00:17 121 H 121/59 L 02/20/21 00:15 37.1 C 118 H 20 118/64 02/20/21 00:02 123 H 115/59 L 02/19/21 23:47 127 H 113/58 L 02/19/21 23:45 18 02/19/21 23:32 130 H 118/60 02/19/21 23:17 123 H 124/69 02/19/21 23:15 18 118/60 02/19/21 23:02 117 H 120/66 02/19/21 23:00 16 02/19/21 22:47 123 H 117/61 02/19/21 22:45 130 H 18 106/60 02/19/21 22:32 130 H 106/60 02/19/21 22:30 131 H 18 02/19/21 22:15 131 H 18 138/74 02/19/21 22:12 147 H 100 02/19/21 22:07 158 H 100 02/19/21 22:05 176 H 126/88 02/19/21 22:02 135 H 100 02/19/21 22:00 20 02/19/21 21:57 139 H 100 02/19/21 21:52 127 H 100 02/19/21 21:47 150 H 100 02/19/21 21:42 130 H 100
[2021-02-20] MEDS ORDERED: bisacodyL 5 MG TABEC PO SCH (20:00)
[2021-02-21] MEDS: IBUPROFEN 600 MG TAB PO PRN ×2 (02:23→10:12)
[2021-02-21 06:24] LABS: Hematocrit (blood only) 29.8 % (37-47); Hemoglobin 9.5 g/dL (12.0-16.0)
[2021-02-21] MEDS: PRENATAL VITAMIN 1 TAB PO SCH (07:56)
[2021-02-21] MEDS: DOCUSATE SODIUM 100 MG CAP PO SCH (07:56)
[2021-02-21] MEDS: PENICILLIN V POTASSIUM 500 MG TAB PO SCH (07:57)
[2021-02-21] MEDS: FERROUS SULFATE 325 MG TAB PO SCH (07:57)
--- NOTE | 2021-02-21 10:13 | Obstetrical Progress Note ---
Date of Service February 21, 2021 Subjective Ambulation: ambulating normally Voiding: no voiding problems Passing Gas:: Yes Diet Tolerance:: regular diet Lochia:: Small Feeding Type:: breast feeding Current Pain Level(1-10): 0 Physical Exam Constitutional WD/WN, vitals as above comfortable Results & Data ([facility]) Vital Signs (Past 12 Hours) Vital Signs Temp Pulse Resp BP Pulse Ox 02/21/21 09:44 36.6 C 84 18 117/72 97 02/21/21 08:40 36.6 C 84 18 117/72 97 02/21/21 00:00 36.7 C 81 16 115/73 98 Laboratory Results 02/18/21 02/18/21 02/18/21 07:40 09:24 09:24 WBC 5.60 RBC 4.30 Hgb 11.0 L Hct 34.5 L MCV 80.2 MCH 25.6 MCHC 31.9 L RDW Std Deviation 42.9 RDW Coeff of Fiona 14.7 H Plt Count 252 MPV 10.0 SARS-CoV-2, RNA, NAAT POSITIVE A* Blood Type O Positive Antibody Screen NEGATIVE 02/20/21 02/21/21 07:06 06:08 WBC 9.59 RBC 4.15 L Hgb 10.8 L 9.5 L Hct 33.3 L 29.8 L MCV 80.2 MCH 26.0 MCHC 32.4 RDW Std Deviation 43.9 RDW Coeff of Fiona 14.9 H Plt Count 224 MPV 9.7 SARS-CoV-2, RNA, NAAT Blood Type Antibody Screen
== END 2021-02-21 10:30 | disposition home or self-care (01) | DRG 805 ==
LOC: 4S1 07:43 → 4W 08:59 → 3N 02-20 01:06
DX: O98.52 Other viral diseases complicating childbirth; O99.214 Obesity complicating childbirth; Z3A.40 40 weeks gestation of pregnancy; Z37.0 Single live birth; U07.1 COVID-19; E66.9 Obesity, unspecified

== ENCOUNTER 2023-12-02 01:32 | Inpatient (IN) ==
--- NOTE | 2023-12-02 03:27 | Obstetrical Progress Note ---
Date of Service December 02, 2023 Assessment & Plan (1) PROM (premature rupture of membranes): Plan: 28yo at 39 weeks PROM at 12;30 on 12/01/24- clear fluid FHR; CAT1 Ctx 1-3mins , mild intensity VE; /-3 bedside sono; VT Plan Admit start Pitocin augmentation at 04;00 hrs anticipate VD Results & Data Vital Signs (Past 12 Hours) Vital Signs Temp Pulse Resp BP 12/02/23 01:49 36.7 C 20 12/02/23 01:45 36.7 C 100 H 18 133/81
[2023-12-02] MEDS ORDERED: LIDOCAINE 1% LOCAL 20 ML VIAL INFIL PRN (03:48)
[2023-12-02] MEDS ORDERED: OXYTOCIN 30 UNITS/NSS 30 UNITS/500 ML BAG IV PRN ×2 (03:48→14:16)
[2023-12-02] MEDS: LACTATED RINGER'S 1,000 ML IV PRN (04:00)
[2023-12-02] MEDS: OXYTOCIN 30 UNITS/NSS 30 UNITS/500 ML BAG IV PRN (04:16)
[2023-12-02 04:41] LABS: Hematocrit (blood only) 33.8 % (37.0-47.0); Hemoglobin 10.9 g/dl (12.0-16.0); Mean Corpuscular Hemoglobin 26.8 pg (25.0-34.0); Mean Corpuscular Hgb Conc 32.2 g/dL (32.0-36.0); Mean Corpuscular Volume 83.3 fL (80.0-100.0); Mean Platelet Volume 9.7 fL (9.4-12.4); Platelet Count 254 K/uL (130-400); RDW Coefficient of Variation 13.8 % (11.5-14.5); RDW Standard Deviation 41.1 fL (36.4-46.3); Red Blood Count 4.06 M/uL (4.20-5.40); White Blood Count 11.82 K/ul (4.8-10.8)
[2023-12-02 07:16] LABS: Amphetamines+Metham, Urine Neg (Neg); Barbiturates, Urine Neg (Neg); Benzodiazepine, Urine Neg (Neg); Cocaine, Urine Neg (Neg); Fentanyl, Urine Neg (Neg); MDMA (Ecstacy), Urine Neg (Neg); Marijuana, Urine Neg (Neg); Methadone, Urine Neg (Neg); Opiate, Urine Neg (Neg); Phencyclidine, Urine Neg (Neg)
--- NOTE | 2023-12-02 08:10 | Labor Progress Brief Note ---
Date of Service December 02, 2023 Subjective patient requesting epidural Assessment & Plan Admission and Anticipated Discharge Date Admission Date: December 02, 2023 Physical Exam Genitourinary: Manual OB Exam: + cervical dilation 3 cm and 4 cm, + cervical effacement 60%, + station -2 and + amniotic fluid clear OB Exam Monitor Tracing: + external FHT monitor used, + external uterine monitor used, + category I, + normal FHT variability and + variable decelerations Results & Data Vital Signs (Past 12 Hours) Vital Signs Temp Pulse Resp BP 12/02/23 07:30 12/02/23 07:30 12/02/23 07:15 36.6 C 12/02/23 07:03 91 H 121/72 12/02/23 07:00 12/02/23 07:00 12/02/23 06:35 12/02/23 06:35 36.7 C 12/02/23 06:32 90 115/71 12/02/23 06:30 12/02/23 06:30 12/02/23 06:00 12/02/23 06:00 12/02/23 05:12 97 H 136/77 12/02/23 04:30 12/02/23 04:30 12/02/23 04:27 12/02/23 04:27 36.8 C 12/02/23 04:24 96 H 137/87 12/02/23 04:00 12/02/23 04:00 12/02/23 03:18 12/02/23 03:18 12/02/23 03:00 12/02/23 03:00 12/02/23 02:26 12/02/23 02:26 12/02/23 01:49 36.7 C 12/02/23 01:45 36.7 C 100 H 18 133/81
[2023-12-02] MEDS: fentANYL 2 MCG/ML BUPIVacaine 0.125%-NSS 100ML BAG ONE (09:26)
[2023-12-02] MEDS: BUPIVACAINE 0.25% PF 30 ML VIAL ONE (09:28)
[2023-12-02] MEDS: LIDOCAINE 2%/EPINEPHRINE 1:200,000 20 ML PF ONE (09:33)
[2023-12-02] MEDS ORDERED: NALOXONE HCL 0.4 MG/1 ML VIAL/CARP IV PRN (09:38)
[2023-12-02] MEDS ORDERED: BUPIVACAINE 0.25% PF 30 ML VIAL EPI PRN (09:38)
[2023-12-02] MEDS ORDERED: ROPIVACAINE 0.5% PF 5 MG/ML 20 ML VIAL EPI PRN (09:38)
[2023-12-02] MEDS ORDERED: LIDOCAINE 2% MPF LOCAL 5 ML VIAL EPI PRN (09:38)
[2023-12-02] MEDS ORDERED: fentaNYL citrate PF 100 MCG/2 ML VIAL EPI PRN (09:38)
[2023-12-02] MEDS ORDERED: fentANYL 2 MCG/ML BUPIVacaine 0.125%-NSS 100ML BAG EPI PRN (09:38)
[2023-12-02] MEDS ORDERED: ePHEDrine sulfate 50 MG/ML AMP IV PRN (09:38)
[2023-12-02] MEDS ORDERED: NALOXONE HCL 1 MG in SODIUM CHLORIDE 0.9% 1,000 ML IV PRN (09:38)
[2023-12-02] MEDS ORDERED: NALBUPHINE HCL INJ 10 MG/ML AMP IV PRN (09:38)
[2023-12-02] MEDS ORDERED: diphenhydrAMINE 50 MG/ML VIAL IV PRN (09:38)
[2023-12-02] MEDS ORDERED: SODIUM CHLORIDE 0.9% PF INJ 10 ML VIAL EPI PRN (09:38)
--- NOTE | 2023-12-02 09:38 | Anesthesiology Consultation ---
Date of Service December 02, 2023 Assessment & Plan Chart Review Chart Review: Acceptable Risk for Labor Epidural Consults Requested none History Height/Weight Height: 5 ft 7 in Weight: 107.955 kg Allergies Allergy/AdvReac Type Severity Reaction Status Date / Time No Known Allergies Allergy Verified 02/18/21 08:14 Medications Home Medications Medication Instructions Recorded Confirmed Last Taken breast pump #1 ea 03/30/18 Unknown Active Medications Generic Name Dose Route Start Last Admin Trade Name Freq PRN Reason Stop Dose Admin Oxytocin 30 units in 500 mls @ 4 mls/hr 12/02/23 03:27 12/02/23 07:00 Pitocin 30 Units/Nss IV 12/04/23 03:26 0.24 units/hr .Q24H PRN 4 mls/hr Labor Induction/Augmentation Titration Protocol 0.24 UNITS/HR Lactated Ringer's 1,000 mls @ 125 mls/hr 12/02/23 03:48 12/02/23 09:10 Lr IV 12/04/23 03:47 125 mls/hr .Q8H PRN Administration L&D Protocol Protocol Past Medical History Medical History Depression No meds GERD (gastroesophageal reflux disease) Kidney stones Obesity Sciatica UTI (urinary tract infection) Currently taking PO Penicillin Past Family History Family History Other No known health problems Past Surgical History Surgical History S/P cystoscopy with ureteral stent placement S/P tonsillectomy Social History Smoking Status: Never smoker Do You Dip or Chew Tobacco: No Hx Alcohol Use: No Hx Substance Use: No Physical Exam Vital Signs Last Vital Signs Temp 36.6 C 12/02/23 07:15 Pulse 105 H 12/02/23 09:35 Resp 20 12/02/23 08:30 BP 128/70 12/02/23 09:35 Pulse Ox 97 12/02/23 09:35 Testing Laboratory Results 12/02/23 04:08 Blood Type Cancelled 12/02/23 04:08 Antibody Screen Cancelled 12/02/23 04:08
[2023-12-02] MEDS: fentaNYL citrate PF 100 MCG/2 ML VIAL ONE (11:12)
[2023-12-02] MEDS: BUPIVACAINE 0.25% PF 30 ML VIAL EPI STA (11:12)
[2023-12-02] MEDS: SODIUM CHLORIDE 0.9% PF INJ 10 ML VIAL ONE (11:12)
[2023-12-02] MEDS: ePHEDrine sulfate 50 MG/ML AMP ONE (11:12)
[2023-12-02] MEDS: LIDOCAINE 2%/EPINEPHRINE 1:200,000 20 ML PF EPI STA (11:13)
[2023-12-02] MEDS: SODIUM CHLORIDE 0.9% PF INJ 10 ML VIAL EPI STA (11:13)
[2023-12-02] MEDS: fentaNYL citrate PF 100 MCG/2 ML VIAL EPI STA (11:13)
--- OUTSIDE RECORDS SUMMARY | 2023-12-02 12:58 | External Medical Summary | Summary of Care ---
Author Name Unknown Organization [facility] Address [address] [place] [address] Phone [phone] Care Team Providers Care Biodiesel Division Manager Name Role Phone Shala Peoples PA-C Primary Care Provider [phone] Reason for Visit * Reason Onset Date Comments Appointment 11/06/2023 Encounter Details Date Type Department Care Team (Late st Contact Info) Description 11/06/2023 Telephone Family Practice [facility] [address] [facility] [place] [address] Shala Peoples PA-C [address] [facility] [place] [address] Appointment Allergies No known active allergiesdocumented as of this encounter (statuses as of 11/06/2023) Medications Medication Sig Dispensed Refills Start Date End Date Status 28-0.8 MG Oral Tablet Take by mouth. Active documented as of this encounter (statuses as of 11/06/2023) Active Problems Problem Noted Date Diagnosed Date Supervision of other normal , antepartu m 05/29/2023 Class II obesity 05/29/2023 Overview: Early glucola Serial growth Weekly NST 37w History of marijuana use 05/01/2023 History of 2019 novel coronavirus disease (COVID -19) 05/13/2021 Major depressive disorder, single episode, mild 05/03/2020 Morbid obesity due to excess calories 05/03/2020 Body mass index (BMI) of 40.0 to 44.9 in adult 0 06/14/2018 Overview: Per Obesity protocol #1 Neuropathy 05/04/2018 Overview: Heaviness and occasional tingling in right leg 5 weeks /post epidural, neurology consult placed per Dr. Lock's recommendation. Estimated Date of Delivery Comme nts Yes 12/05/2023 Based on Ultraso und documented as of this encounter (statuses as of 11/06/2023) Resolved Problems Problem Noted Date Diagnosed Date Resolved Date Normal intrauterine , antepartum 05/01/2023 09/29/2023 Obesity affecting in first trimester 05/01/2023 09/29/2023 UTI (urinary tract infection ) during 07/06/2020 02/25/2021 Overview: +e coli at NOB Supervision of high-risk pre gnancy, unspecified trimester 07/04/2020 02/25/2021 Obesity in , antepartum 07/04/2020 02/25/2021 Overview: Class III obesity (BMI 40+) -Weight gain 11-20lbs -Nutrition consult -Early GDM screening - normal -MFM anatomy scan, growth scan q4 weeks -Baseline preeclampsia labs (CBC, AST/ALT/creatinine, 24 hour urine) -NSTs twice weekly at 36 weeks -Deliver by MEGAN -Anesthesia consult Depression complicating , antepartum 07/05/19 21 02/25/2021 Normal spontaneous vaginal delivery 05/04/2018 06/18/2020 Overview: 03/28/2018 baby girl Supervision of normal first , antepartum 08/06/2017 05/04/2018 Obesity in , antepartum 08/06/2017 05/04/2018 Overview: Class 2-BMI 35-39.9: Recommend restricting weight gain during to 11-20 pounds. Consider referral for nutrition consult. Recommend obtaining early Gestational Diabetes Mellitus screen and repeat again at 26-28 weeks if early screen is normal. Recommend Maternal Medicine ultrasound for anatomy screen at 20 weeks and for growth every 4 weeks after 24 weeks. If diagnosed with Gestational Diabetes Mellitus OR fetus is noted to be LGA, then recommend surveillance twice weekly to begin at 36 weeks and delivery by EDC. Facial laceration 10/29/2011 05/14/2017 documented as of this encounter (statuses as of 11/06/2023) Immunizations Name Administration Dates Next Due TDAP (age 10 and older)(Boostrix) 01/29/2018 documented as of this encounter Social History Tobacco Use Types Packs/Day Years Used Date Smoking Tobacco: Former Cigarettes Q uit: 05/20/2017 Smokeless Tobacco: Never Alcohol Use Standard Drinks/Week Comments Not Currently 0 (1 standard drink = 0.6 oz pur e alcohol) occ PHQ-2 Answer Date Recorded PHQ-2 Score 0 12/15/2019 Hunger Vital Sign Answer Date Recorded Within the past 12 months, y ou worried that your food would run out before you got the money to buy more. Never true 09/09/19 Within the past 12 months, t he food you bought just didn't last and you didn't have money to get more. Never true 09/08/2022 [place] Depression Scale Answer Date Recorded [place] Depression Scale Total 0 05/01/2023 The thought of harming myself has occurred to me . Never 05/01/2023 Childcare Answer Date Recorded Do you feel overwhelmed with taking care of a child, family member or friend? No 09/08/2022 Does your family need help f inding childcare? (Household - for ages 0-17 years) Not on file 09/08/2022 Clothing Answer Date Recorded Have you been unable to get clothing when it was really needed? No 09/08/2022 Is your family able to get c lothes or diapers when needed? (Household - for ages 0-17 years) Not on file 09/08/2022 Personal Safety Answer Date Recorded Do you feel unsafe or have concerns for your saf ety? No 09/08/2022 Do you have concerns for you r family's safety? (Household - for ages 0-17 years) Not on file 09/08/2022 Utilities Answer Date Recorded Do you have trouble paying y our heating, water, or electric bill? (Adult - for ages 18 years and over) Not on file 09/09/2023 Is your family able to pay t he heat, water, or electric bill? (Household - for ages 0-17 years) Not on file 09/09/2023 Does your family have access to good internet? (Household - for ages 0-17 years) Not on file 09/09/2023 Employment Status Answer Date Recorded Are you unemployed or without regular income? No 09/08/2022 Does the household have a re gular source of income? (Household - for ages 0-17 years) Not on file 09/08/2022 Social Connections Answer Date Recorded How often do you feel lonely or isolated from those around you? (Adult - for ages 18 years and over) Not on file 09/09/2023 Financial Resource Strain Answer Date R ecorded Do you have any trouble payi ng for your medications, or do you think you might in the future? No 09/08/2022 Does your family have troubl e paying for medicine? (Household - for ages 0-17 years) Not on file 09/08/2022 Transportation Needs Answer Date Record ed READ ONLY Do you have troubl e getting a ride to medical visits or work? Never True 09/08/2022 Does your family have a hard time getting a ride to doctors visits? (Household - for ages 0-17 years) Not on file 09/08/2022 Has lack of transportation k ept you from medical appointments, meetings, work, or from getting things needed for daily living? Check all that apply. (Adult - for ages 18 years and over) Not on file 09/08/2022 Do you (or your family) have trouble finding or paying for a ride (transportation)? (Household - for ages 0-17 years) Not on file 09/08/2022 Housing Stability Answer Date Recorded Do you currently live in a s helter or have no steady place to sleep at night? No 09/08/2022 READ ONLY Do you think you a re at risk of becoming homeless? No 09/08/2022 Does your family worry about paying for your home or becoming homeless? (Household - for ages 0-17 years) Not on file 0 09/08/2022 Are you homeless or worried that you might be in the future? (Adult - for ages 18 years and over) Not on file 3 Are you (or your family) eduardo eless or worried that you might be in the future? (Household - for ages 0-17 years) Not on file Food Insecurity Answer Date Recorded Do you need food for this week? No 09/08/2022 Are you able to get enough f ood for your family? (Household - for ages 0-17 years) Not on file 09/08/2022 Does your family need food t his week? (Household - for ages 0-17 years) Not on file 09/08/2022 Do you always have enough fo od for your family? (Household - for ages 0-17 years) Not on file 09/08/2022 Estimated Date of Delivery Comme nts Yes 12/05/2023 Based on Ultraso und Sex and Gender Information Value Date Recorded Sex Assigned at Female 09/08/2022 4:35 PM EDT Gender Identity Female 09/08/2022 4:35 PM EDT Sexual Orientation Straight 09/08/2022 4: 35 PM EDT Job Start Date Occupation Industry Not on file Not on file Not on file documented as of this encounter Miscellaneous Notes * Telephone Encounter - Karen Cross OSA - 11/06/2023 11:46 AM EDT KAREN Needs weekly NST starting at 37 weeks Return in about 1 week (around 11/13/2023), or if symptoms worsen or fail to improve, for Clinic Visit. OB Needs weekly NST starting at 37 weeks documented in this encounter Plan of Treatment Upcoming Encounters Date Type Department Care Team (Late st Contact Info) Description 11/11/2023 9:15 AM EDT Office Visit Gynecology/Obstetrics [facility] [address] [place] [address] Machelle Underwood CRNP [address] [place] [address] [facility] Stress Tests [facility] [address] [place] [address] 11/25/2023 10:15 AM EDT Office Visit Gynecology/Obstetrics [facility] [address] [place] [address] Haily Alfred CRNP [address] [address] [place] [facility] Stress Tests [place] [address] [place] [address] 12/02/2023 1:00 PM EDT Office Visit Gynecology/Obstetrics Crista Castillos [address] [place] [address] ZoranerMachelle CRNP [address] [place] [address] [place] Non Stress Tests [place] [address] [place] [address] Health Maintenance Due Date Last Done Comments Hepatitis B Vaccine (1 of 3 - 19+ 3-dose series) 08/26/2014 Depression Monitoring 12/14/2020 12/15/2019 COVID-19 Vaccine ( - 2022-2 4 season) 2022 Influenza Vaccine (FLU shot) (#1) 2023 Pap Smear 05/01/2026 05/01/2023, 07/04/2020, 08/06/2017 DTap/Tdap Vaccines (2 - Td o r Tdap) 01/30/2028 01/29/2018 Gonorrhea / Chlamydia Screen Discontinued , 07/04/2020, 08/06/2017 HPV (Gardasil) Vaccine Aged Out No lo nger eligible based on patient's age to complete this topic MENINGOCOCCAL (MENACTRA/MENVEO) Aged Out No longer eligible based on patient's age to complete this topic Pneumococcal Vaccine: Pediatrics (0 to 5 Years) and At-Risk Patients (6 to 64 Years) Aged Out No longer eligible based on patient's age to complete this topic documented as of this encounter Medical Devices Not on filedocumented as of this encounter Care Teams Biodiesel Division Manager Relationship Specialty Start Date End Date Shelton Shala Honorio, MABEL [facility] [address] [place] [address] PCP - General Physician Systems Analyst Developer 11/20/16 documented as of this encounter
--- OUTSIDE RECORDS SUMMARY | 2023-12-02 12:58 | External Medical Summary | Summary of Care ---
Author Name Unknown Organization [facility] Address [address] [place] [address] Phone [phone] Care Team Providers Care Pan Devulcanizer Name Role Phone Shala Peoples Honorio MONROE Primary Care Provider [phone] Reason for Visit * Reason Comments Return Visit Non Stress Test Encounter Details Date Type Department Care Team (Late st Contact Info) Description 11/25/2023 10:15 AM EDT Office Visit Gynecology/Obstetric s Joe'cherelle [facility] [address] [facility] [place] [address] Haily Alfred CRNP [address] [facility] [place] [address] [place] Non Stress Tests Donell [address] [facility] [place] [address] Supervision of other normal , antepartum*; Class II obesity Allergies No known active allergiesdocumented as of this encounter (statuses as of 11/25/2023) Medications Medication Sig Dispensed Refills Start Date End Date Status 28-0.8 MG Oral Tablet Take by mouth. Active documented as of this encounter (statuses as of 11/25/2023) Active Problems Problem Noted Date Diagnosed Date [...] as of this encounter (statuses as of 11/25/2023) Resolved Problems Problem Noted Date Diagnosed Date [...] as of this encounter (statuses as of 11/25/2023) Immunizations Name Administration Dates Next Due TDAP [...] money to get more. Never true 09/08/2022 [place] Depression Scale Answer Date Recorded [place] Depression Scale Total 0 05/01/2023 The thought [...] 18 years and over) Not on file Are you (or your family) eduardo eless [...] on file documented as of this encounter Last Filed Vital Signs Vital Sign Reading Time Taken Comments Blood Pressure 124/74 11/25/2023 10:13 AM EDT Pulse - - Temperature - - Respiratory Rate - - Oxygen Saturation - - Inhaled Oxygen Concentration - - Weight 108 kg (238 lb 3.2 oz) 11/25/2023 10:13 A M EDT Height - - Body Mass Index 37.31 11/18/2023 11:07 AM EDT documented in this encounter Progress Notes * Haily Alfred CRNP - 11/25/2023 10:46 AM EDT 38w4d No concerns. Ready for delivery. Asking for cervical check. She denies contractions, LOF, bleeding. IOL scheduled 12/06. Mri Manager Documentation Provider requested radiocommunications technician. Name of radiocommunications technician: Kalani ASSESSMENT assessment with Non-stress Test completed on 11/25/2023 at 38.4weeks gestation for indication of obesity heart baseline: 150 bpm Variability: Moderate Decelerations: absent Accelerations: present Contractions: None NST start time: 1005 NST stop time: 1037 NST strip reviewed, interpreted, and approved by OB provider, FELIX Cordova . NST strip stored in clinic storage file * Kalani Burgess CMA - 11/25/2023 10:13 AM EDT 38w4d Increased pressure and discomfort. Feeling of "needing to push" occasionally. Requesting cervical check. documented in this encounter Plan of Treatment Upcoming Encounters Date Type Department Care Team (Late st Contact Info) Description 12/02/2023 1:00 PM EDT Office Visit Gynecology/Obstetrics [facility] [place] [address] [place] [address] Backer, FELIX Apple [address] [place] [address] [place] Non Stress Tests [place] [address] [place] [address] Health Maintenance Due Date Last Done Comments Hepatitis B Vaccine (1 of 3 - 19+ 3-dose series) 08/26/2014 Depression Monitoring 12/14/2020 12/15/2019 COVID-19 Vaccine (1 - 2023-2 5 season) 2023 Influenza Vaccine (FLU shot) (#1) 2023 Pap [...] Not on filedocumented as of this encounter Visit Diagnoses Diagnosis Supervision of other normal , antepartum- Primary Class II obesity documented in this encounter Care Teams Pan Devulcanizer Relationship Specialty Start Date End Date Shelton June MABEL Olmedo [facility] [place] [address] [place] [address] PCP - General Physician Shipping Specialist 11/20/16 documented as of this encounter
--- OUTSIDE RECORDS SUMMARY | 2023-12-02 12:58 | External Medical Summary | Summary of Care ---
Author Name Unknown Organization [facility] Address [address] [place] [address] Phone [phone] Care Team Providers Care Injection Press Operator Name Role Phone NatyphilipShala PA-C Primary Care Provider Reason for Visit * Reason Comments Return Visit Encounter Details Date Type Department Care Team (Late st Contact Info) Description 09/29/2023 11:30 AM EDT Office Visit Gynecology/Obstetric [facility] [address] [place] [address] BackerMachelle CRNP [address] [place] [address] Supervision of other normal , antepartum*; Class II obesity Allergies No known active allergiesdocumented as of this encounter (statuses as of 09/29/2023) Medications Medication Sig Dispensed Refills Start Date End Date Status 28-0.8 MG Oral Tablet Take by mouth. Active Nitrofurantoin Monohyd Macro 100 MG Oral Capsule (Macrobid) Take 1 Capsule by mouth in the morning and 1 Capsule before bedtime. Do all this for 5 days. With food. Until gone.. 10 Capsule 06/03/2023 09/29/2023 Discontinued (Medication List Clean Up) Amoxicillin 500 MG Oral Tablet Take 1 Tablet by mouth in the morning and 1 Tablet at noon and 1 Tablet before bedtime. Do all this for 5 days. Until gone.. 15 Tablet 09/18/2023 09/29/2023 Discontinued (Medication List Clean Up) documented as of this encounter (statuses as of 09/29/2023) Active Problems Problem Noted Date Diagnosed Date [...] as of this encounter (statuses as of 09/29/2023) Resolved Problems Problem Noted Date Diagnosed Date [...] as of this encounter (statuses as of 09/29/2023) Immunizations Name Administration Dates Next Due TDAP [...] money to buy more. Never true 09/09/19 23 Within the past 12 months, t he food you bought just didn't last and you didn't have money to get more. Never true 09/08/2022 [place] Depression Scale Answer Date Recorded [place] Depression Scale Total 0 05/01/2023 The thought [...] 09/08/2022 Does the household have a re lar source of income? (Household - for ages [...] Sign Reading Time Taken Comments Blood Pressure 106/64 09/29/2023 10:46 AM EDT Pulse - - Temperature - - Respiratory Rate - - Oxygen Saturation - - Inhaled Oxygen Concentration - - Weight 102 kg (224 lb 12.8 oz) 09/29/2023 10:46 AM EDT Height - - Body Mass Index 35.21 06/26/2023 11:45 AM EDT documented in this encounter Progress Notes * Machelle Underwood CRNP - 09/29/2023 10:50 AM EDT 30w3d Growth u/s today, report in process. Per hectoradeola maria, EFW 33%ile, normal HELENA. Concerned with weight loss - reports eating normally, not vomiting, no calorie restriction. Discussed good nutrition. Will continue to have monthly growth u/s. Reviewed [facility] and labor precautions. 2 week return FELIX Layton documented in this encounter Plan of Treatment Upcoming Encounters Date Type Department Care Team (Late st Contact Info) Description 10/19/2023 4:30 PM EDT Office Visit Gynecology/Obstetrics [facility] [address] [place] [address] oNreen Cunningham PA-C [address] [place] [address] Health Maintenance Due Date Last Done Comments Hepatitis B Vaccine (1 of 3 - 19+ 3-dose series) 08/26/2014 Depression Monitoring 12/14/2020 12/15/2019 COVID-19 Vaccine (1 - 2022-2 4 season) 2022 Influenza Vaccine (FLU shot) (#1) 2023 Pap Smear 05/01/2026 05/01/2023, 07/04/2020, 08/06/2017 DTaP,Tdap,and Td Vaccines (2 - Td or Tdap) 01/30/2028 01/29/2018 Gonorrhea / Chlamydia Screen [...] obesity documented in this encounter Care Teams Injection Press Operator Relationship Specialty Start Date End Date Shelton June Honorio, MABEL [address] [facility] [place] [address] PCP - General Physician Superintendent Electric Power 11/20/16 documented as of this encounter
--- OUTSIDE RECORDS SUMMARY | 2023-12-02 12:58 | External Medical Summary | Summary of Care ---
Author Name Unknown Organization [facility] Address [address] [place] [address] Phone [phone] Care Team Providers Care Foam Rubber Curer Name Role Phone Shala Peoples PA-C Primary Care Provider [phone] Reason for Visit * Reason Comments Return Visit Encounter Details Date Type Department Care Team (Late st Contact Info) Description 10/19/2023 4:30 PM EDT Office Visit Gynecology/Obstetric s Gurvindercherelle Castillos [address] [place] [address] Noreen Cunningham PA-C [address] [place] [address] Supervision of other normal , antepartum*; Class II obesity Allergies No known active allergiesdocumented as of this encounter (statuses as of 10/19/2023) Medications Medication Sig Dispensed Refills Start Date End Date Status 28-0.8 MG Oral Tablet Take by mouth. Active documented as of this encounter (statuses as of 10/19/2023) Active Problems Problem Noted Date Diagnosed Date [...] as of this encounter (statuses as of 10/19/2023) Resolved Problems Problem Noted Date Diagnosed Date [...] as of this encounter (statuses as of 10/19/2023) Immunizations Name Administration Dates Next Due TDAP [...] money to get more. Never true 09/08/2022 [place] Depression Scale Answer Date Recorded [place] Depression Scale Total 0 05/01/2023 The thought [...] Sign Reading Time Taken Comments Blood Pressure 104/66 10/19/2023 4:24 PM EDT Pulse - - Temperature - - Respiratory Rate - - Oxygen Saturation - - Inhaled Oxygen Concentration - - Weight 104.6 kg (230 lb 9.6 oz) 10/19/2023 4:24 PM EDT Height - - Body Mass Index 36.12 06/26/2023 11:45 AM EDT documented in this encounter Progress Notes * Noreen Cunningham PA-C - 10/19/2023 4:34 PM EDT 33w2d Urine culture today, had Lactobacilli in last culture 09/16/2023. Had opted for treatment. ? Symptoms today, feels cramping/burning. UA negative nitrites/leuk. Urine culture negative. Growth with next visit. Denies VB, LOF, contraction. Pos fm. RTC in 2 weeks Noreen Cunningham PA-C * Digna Silva MED ASSIST - 10/19/2023 4:24 PM EDT 33w2d ? UTI Clean catch urine collected. documented in this encounter Miscellaneous Notes * Addendum Note - Digna Silva MED ASSIST - 10/19/2023 4:48 PM EDTAddended by: DIGNA SILVA on: 10/19/2023 04:48 PM Modules accepted: Orders documented in this encounter Plan of Treatment Pending Results Name Type Priority Associated Diagnoses Date /Time CULTURE, URINE, QUANTITATIVE Lab Routine Supervision of other normal , antepartum 10/19/2023 4:44 PM EDT Scheduled Orders Name Type Priority Associated Diagnoses Orde r Schedule US PREG FOLLOW-UP EACH FETUS Medical Imaging Routine Class II obesity Expected: 11/02/2023, Expires: 11/18/2024 Health Maintenance Due Date Last Done Comments [...] Not on filedocumented as of this encounter Procedures Procedure Name Priority Date/Time Associated Diagnosis Comments URINALYSIS, POINT OF CARE (ENTER/EDIT) Routine 10/19/2023 Supervision of other normal , antepartum documented in this encounter Results * URINALYSIS, POINT OF CARE (ENTER/EDIT) (10/19/2023) Color, Urine Yellow Yellow or Light Yellow Clarity, Urine Clear Clear Glucose, Urine Negative Negative mg/dL Bilirubin, Urine Negative Negative Ketone, Urine Negative Negative mg/dL Specific Cl[place], Urine 1.020 1.003 - 1.030 Blood, Urine Negative Negative pH, Urine 7.0 5.0 - 7.5 units Protein, Urine Negative Negative mg/dL Urobilinogen, Urine 2.0 0.2 - 1.0 mg/dL Nitrite, Urine Negative Negative Esterase, Urine Negative Negative Urine 10/19/2023 Noreen Cunningham PA-C LAB POINT OF CARE TE ST ENTER/EDIT ORDERABLES documented in this encounter Visit Diagnoses Diagnosis Supervision of other normal , antepartum- Primary Class II obesity documented in this encounter Care Teams Foam Rubber Curer Relationship Specialty Start Date End Date Natyjune MABEL Olmedo [address] [place] [address] PCP - General Physician Coil Machine Operator 11/20/16 documented as of this encounter
--- OUTSIDE RECORDS SUMMARY | 2023-12-02 12:58 | External Medical Summary | Summary of Care ---
Author Name Unknown Organization [facility] Address [address] [place] [address] Phone [phone] Care Team Providers Care Ob Nurse Name Role Phone NatyphilipShala PA-C Primary Care Provider [phone] Reason for Visit * Reason Comments Outpatient Testing Encounter Details Date Type Department Care Team (Late st Contact Info) Description 09/16/2023 10:30 AM EDT Laboratory Laboratory, [facility] [address] [place] [address] [facility] [address] [place] [address] [employer] Other*[id number]; Normal intrauterine , antepartum; Supervision of other normal , antepartum Allergies No known active allergiesdocumented as of this encounter (statuses as of 09/16/2023) Medications Medication Sig Dispensed Refills Start Date End Date Status 28-0.8 MG Oral Tablet Take by mouth. Active documented as of this encounter (statuses as of 09/16/2023) Active Problems Problem Noted Date Diagnosed Date Supervision of other normal , antepartu m 05/29/2023 Class II obesity 05/29/2023 Overview: Early glucola Serial growth Weekly NST 37w Normal intrauterine , antepartum 2023 Obesity affecting in first trimester 0 05/01/2023 History of marijuana use 05/01/2023 History of [...] as of this encounter (statuses as of 09/16/2023) Resolved Problems Problem Noted Date Diagnosed Date Resolved Date UTI (urinary tract infection ) during 07/06/2020 [...] as of this encounter (statuses as of 09/16/2023) Immunizations Name Administration Dates Next Due TDAP [...] money to get more. Never true 09/08/2022 [place] Depression Scale Answer Date Recorded [place] Depression Scale Total 0 05/01/2023 The thought [...] on file documented as of this encounter Plan of Treatment Upcoming Encounters Date Type Department Care Team (Late st Contact Info) Description 09/29/2023 10:30 AM EDT Imaging Radiology [facility] 2nd [facility] [address] [place] [address] 09/29/2023 11:30 AM EDT Office Visit Gynecology/Obstetrics [facility] [address] [place] [address] BackerMachelle CRNP [address] [place] [address] Pending Results Name Type Priority Associated Diagnoses Date /Time MYCODE SUBSEQUENT ADULT Lab Routine [employer] Other*[id number] 09/16/2023 10:40 AM EDT CULTURE, URINE, QUANTITATIVE Lab Routine Normal intrauterine , antepartum 09/16/2023 10:40 AM EDT 50-G GESTATIONAL GLUCOSE, 1 HOUR Lab Routine Supervision of other normal , antepartum 09/16/2023 10:40 AM EDT SYPHILIS ANTIBODY SCREEN WITH REFLEX TO RPR Lab Routine Supervision of other normal , antepartum 09/16/2023 10:40 AM EDT CBC WITH WBC DIFFERENTIAL AND ANEMIA REFLEX WORKUP Lab Routine Supervision of other normal , antepartum 09/16/2023 10:40 AM EDT MYCODE SST1 Lab Routine [employer] Other*[id number] 09/16/2023 10:40 AM EDT MYCODE SST2 Lab Routine [employer] Other*[id number] 09/16/2023 10:40 AM EDT SYPHILIS ANTIBODY SCREEN Lab Routine Supervision of other normal , antepartum 09/16/2023 10:40 AM EDT ANEMIA CBC Lab Routine Supervision of other normal , antepartum 09/16/2023 10:40 AM EDT DIFFERENTIAL, AUTOMATED Lab Routine Supervision of other normal , antepartum 09/16/2023 10:40 AM EDT ANEMIA REFLEX CHEMISTRY HOLD Lab Routine Supervision of other normal , antepartum 09/16/2023 10:40 AM EDT Health Maintenance Due Date Last Done Comments [...] as of this encounter Visit Diagnoses Diagnosis [employer] Other*[id number] Normal intrauterine , antepartum Supervision of other normal , antepartum documented in this encounter Care Teams Ob Nurse Relationship Specialty Start Date End Date Shelton June Honorio, MABEL [address] [facility] [place] [address] PCP - General Physician Scale Reclamation Tender 11/20/16 documented as of this encounter
--- OUTSIDE RECORDS SUMMARY | 2023-12-02 12:58 | External Medical Summary | Summary of Care ---
Author Name Unknown Organization [facility] Address [address] [place] [address] Phone [phone] Care Team Providers Care Quality Control Chemist Name Role Phone Shala Peoples PA-C Primary Care Provider Encounter Details Date Type Department Care Team (Late st Contact Info) Description 11/06/2023 Telephone Gynecology/Obstetrics [facility] [address] [place] [address] Noreen Cunningham PA-C [address] [place] [address] Allergies No known active allergiesdocumented as of [...] money to get more. Never true 09/08/2022 [place] Depression Scale Answer Date Recorded [place] Depression Scale Total 0 05/01/2023 The thought [...] Office Visit Gynecology/Obstetrics [facility] [address] [place] [address] Machelle Underwood CRNP [address] [place] [address] [place] Non [facility] [address] [place] [address] 11/25/2023 10:15 AM EDT Office Visit Gynecology/Obstetrics [facility] [address] [place] [address] Haily Alfred CRNP [address] [place] [address] [place] Non Stress Tests [facility] [address] [place] [address] 12/02/2023 1:00 PM EDT Office Visit Gynecology/Obstetrics [facility] [address] [place] [address] Backer, Machelle FELIX Anna [address] [place] [address] [place], Non Stress Tests [facility] [address] [place] [address] Health Maintenance Due Date Last Done Comments [...] filedocumented as of this encounter Care Teams Quality Control Chemist Relationship Specialty Start Date End Date Shelton June MABEL Olmedo [address] [place] [address] PCP - General Physician Decontaminator 11/20/16 documented as of this encounter
--- OUTSIDE RECORDS SUMMARY | 2023-12-02 12:58 | External Medical Summary ---
Author Name Unknown Address Unknown Organization K[facility] [address] [place] [address] Laboratory Report Ordering Provider Test Date Status DAMIÁN RAMON 09/16/2023 10:40:05 Final Observation Date Value Abnormality Reference (Units ) Status Glucose [Moles/volume] in Serum or Plasma --1 hour post 50 g glucose PO 09/16/2023 10:40:05 119 70-129 (mg/dL) Final Performing Location LABORATORY [facility] [address] 0 - [address] [place] [address]
--- OUTSIDE RECORDS SUMMARY | 2023-12-02 12:58 | External Medical Summary | Summary of Care ---
Author Name Unknown Organization [facility] Address [address] [place] [address] Phone [phone] Care Team Providers Care Treasury Consultant Name Role Phone Shelton Shala Olmedo PA-C Primary Care Provider [phone] Reason for Visit * Reason Comments Return Visit Encounter Details Date Type Department Care Team (Late st Contact Info) Description 09/16/2023 10:45 AM EDT Office Visit Gynecology/Obstetric s [facility] [address] [place] [address] Noreen Cunningham PA-C [address] [place] [address] Supervision of other normal , antepartum*; Class [...] money to get more. Never true 09/08/2022 Boyd Depression Scale Answer Date Recorded [place] Depression Scale Total 0 05/01/2023 The thought [...] Sign Reading Time Taken Comments Blood Pressure 102/62 09/16/2023 9:49 AM EDT Pulse - - Temperature - - Respiratory Rate - - Oxygen Saturation - - Inhaled Oxygen Concentration - - Weight 102.2 kg (225 lb 3.2 oz) 09/16/2023 9:49 AM EDT Height - - Body Mass Index 35.27 06/26/2023 11:45 AM EDT documented in this encounter Progress Notes * Noreen Cunningham PA-C - 09/16/2023 9:59 AM EDT 28w4d Decreased appetite over last few weeks. Pt reports more sensitive to smells causing food aversions.Lost 10 pounds in 2 weeks. Reviewed ensuring proper nutrition. Discussed small frequent meals if needed as reports just hard to eat big meals as feels full fast. Also discussed Ensure drinks to help increase caloric intake and protein in diet. Growth ordered secondary to weight loss and Class 2 obese. FH not measuring under today. Denies VB, LOF, contractions. Baby is active. Declines TDaP. Completing third tri labs today. RTC in 2 weeks Noreen Cunningham PA-C * Kalani Burgess MED ASSIST - 09/16/2023 9:49 AM EDT 28w4d Patient states not hungry or thirsty Denies vaginal bleeding/rom + movements Declines TDAP documented in this encounter Plan of Treatment Upcoming Encounters Date Type Department Care Team (Late st Contact Info) Description 09/16/2023 10:30 AM EDT Laboratory Laboratory, [facility] [address] [place] [id number] [facility] [address] [facility] [place] [address] Arrived 09/29/2023 10:30 AM EDT Imaging Radiology [facility] 2nd [facility] [address] [place] [address] 09/29/2023 11:30 AM EDT Office Visit Gynecology/Obstetrics [facility] [address] [facility] [place] [address] Backer, FELIX Apple [address] [facility] [place] [address] Scheduled Orders Name Type Priority Associated Diagnoses Orde r Schedule US PREG FOLLOW-UP EACH FETUS Medical Imaging Routine Supervision of other normal , antepartum Class II obesity Expected: 09/16/2023, Expires: 10/16/2024 Health Maintenance Due Date Last Done Comments Hepatitis B Vaccine (1 of 3 - 19+ 3-dose series) 08/26/2014 Depression Monitoring 12/14/2020 12/15/2019 COVID-19 Vaccine (2022-2 4 season) 2022 Influenza Vaccine (FLU shot) [...] obesity documented in this encounter Care Teams Treasury Consultant Relationship Specialty Start Date End Date Shelton Shala MABEL Olmedo [facility] [address] [place] [address] PCP - General Physician Photo Equipment Technician 11/20/16 documented as of this encounter
--- OUTSIDE RECORDS SUMMARY | 2023-12-02 12:58 | External Medical Summary | Summary of Care ---
Author Name Unknown Organization [facility] Address [address] [place] [address] Phone [phone] Care Team Providers Care Squash Centre Manager Name Role Phone Shala Peoples PA-C Primary Care Provider [phone] Reason for Visit * Reason Comments Return Visit Encounter Details Date Type Department Care Team (Late st Contact Info) Description 11/18/2023 11:15 AM EDT Office Visit Gynecology/Obstetric s [facility] [place] [address] [place] [address] Noreen Cunningham PA-C [address] [place] [address] [place] Non Stress Tests [facility] [address] [place] [address] Supervision of other normal , antepartum*; Class II obesity Allergies No known active allergiesdocumented as of this encounter (statuses as of 11/18/2023) Medications Medication Sig Dispensed Refills Start Date End Date Status 28-0.8 MG Oral Tablet Take by mouth. Active documented as of this encounter (statuses as of 11/18/2023) Active Problems Problem Noted Date Diagnosed Date [...] as of this encounter (statuses as of 11/18/2023) Resolved Problems Problem Noted Date Diagnosed Date [...] as of this encounter (statuses as of 11/18/2023) Immunizations Name Administration Dates Next Due TDAP [...] money to get more. Never true 09/08/2022 [place] Depression Scale Answer Date Recorded [place] Depression Scale Total 0 05/01/2023 The thought [...] Sign Reading Time Taken Comments Blood Pressure 106/70 11/18/2023 11:07 AM EDT Pulse - - Temperature - - Respiratory Rate - - Oxygen Saturation - - Inhaled Oxygen Concentration - - Weight 107 kg (236 lb) 11/18/2023 11:07 AM EDT Height 170.2 cm (5' 7") 11/18/2023 11:07 AM EDT Body Mass Index 36.96 11/18/2023 11:07 AM EDT documented in this encounter Progress Notes * Noreen Cunningham PA-C - 11/18/2023 11:49 AM EDT 37w4d ASSESSMENT assessment with Non-stress Test completed on 11/18/2023 at 37.4 weeks gestation for indicationof obesity heart baseline: 145 bpm Variability: Moderate Decelerations: absent Accelerations: present Contractions: None NST start time: 11:03 AM NST stop time: 11:36 AM NST strip reviewed, interpreted, and approved by OB provider, Noreen Cunningham PA-C. NST strip stored in clinic storage file Increase sadness and anxiousness this week, pt states not sure why. Tearful when talking about it. 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 and auntplan to be around PP to help. However, pt states this is different from first two deliveries when she lived with family. Not sure if this is reason why worried. Declines assistance including medication at this time. We discussed prioritizing herself and taking time to do some things over next few days that bring her happiness/amy. She states will contact office if she decides on assistance or medication. Denies LOF, VB, regular contractions. Baby is active. IOL scheduled. RTC in 1 week. Continue once weekly NST. Noreen Cunningham PA-C documented in this encounter Plan of Treatment Upcoming Encounters Date Type Department Care Team (Late st Contact Info) Description 11/25/2023 10:15 AM EDT Office Visit Gynecology/Obstetrics [facility] [address] [place] [address] Haily Alfred CRNP [address] [place] [address] [facility] Stress [facility] [address] [place] [address] 12/02/2023 1:00 PM EDT Office Visit Gynecology/Obstetrics [facility] [address] [place] [address] Machelle Underwood CRNP [address] [place] [address] High, Non Stress Tests [facility] [address] [place] [address] Health Maintenance Due Date Last Done Comments Hepatitis B Vaccine (1 of 3 - 19+ 3-dose series) 08/26/2014 Depression Monitoring 12/14/2020 12/15/2019 COVID-19 Vaccine (1 - 2022-2 4 season) 2023 Influenza Vaccine (FLU shot) (#1) [...] obesity documented in this encounter Care Teams Squash Centre Manager Relationship Specialty Start Date End Date SheltonJune MABEL Olmedo [address] [place] [address] PCP - General Physician Aeronautical Research Engineer 11/20/16 documented as of this encounter
--- OUTSIDE RECORDS SUMMARY | 2023-12-02 12:58 | External Medical Summary | Summary of Care ---
Author Name Unknown Organization [facility] Address [address] [place] [address] Phone [phone] Care Team Providers Care Nutrition Internship Name Role Phone Shala Peoples PA-C Primary Care Provider [phone] Encounter Details Date Type Department Care Team (Late st Contact Info) Description 09/28/2023 Orders Only Outcomes Research Department [address] [place] [address] Naya Sim CHRA [employer] Other*[id number] Allergies No known active allergiesdocumented as of this encounter (statuses as of 09/28/2023) Medications Medication Sig Dispensed Refills Start Date End Date Status 28-0.8 MG Oral Tablet Take by mouth. Active documented as of this encounter (statuses as of 09/28/2023) Active Problems Problem Noted Date Diagnosed Date [...] as of this encounter (statuses as of 09/28/2023) Resolved Problems Problem Noted Date Diagnosed Date [...] as of this encounter (statuses as of 09/28/2023) Immunizations Name Administration Dates Next Due TDAP [...] money to get more. Never true 09/08/2022 [place] Depression Scale Answer Date Recorded [place] Depression Scale Total 0 05/01/2023 The thought [...] Description 09/29/2023 10:30 AM EDT [facility] [address] [facility] [place] [address] 09/29/2023 11:30 AM EDT Office Visit Gynecology/Obstetrics [facility] [address] [facility] [place] [address] Backer, FELIX Apple 132 [facility] [place] [address] Scheduled Orders Name Type Priority Associated Diagnoses Orde r Schedule MYCODE SUBSEQUENT ADULT Lab Routine [employer] Other*[id number] Every 6 Months for 2 Occurrences starting 09/28/2023 until 10/17/2024 Health Maintenance Due Date Last Done Comments [...] this encounter Visit Diagnoses Diagnosis [employer] Other*[id number] documented in this encounter Care Teams Nutrition Internship Relationship Specialty Start Date End Date Shelton Shala Honorio, MABEL [address] [place] [address] PCP - General Physician Beveler 11/20/16 documented as of this encounter
--- OUTSIDE RECORDS SUMMARY | 2023-12-02 12:58 | External Medical Summary ---
Author Name Unknown Address Unknown Organization K01:[facility]ORY [facility] [place] - [address] [facility] [place]. [facility] [address] Laboratory Report Ordering Provider Test Date Status KAL PAULINO 09/16/2023 10:40:05 Final Observation Date Value Abnormality Reference (Units ) Status MYCODE SPECIMEN-SST 09/16/2023 10:40:05 Freezing of extracted DNA, whole blood and/or serum. Final Performing Location [facility] [place] - [address] [facility] [address]
--- OUTSIDE RECORDS SUMMARY | 2023-12-02 12:58 | External Medical Summary | Summary of Care ---
Author Name Unknown Organization [facility] Address [address] [place] [address] Phone [phone] Care Team Providers Care Cook Dessert Name Role Phone Shala Peoples PA-C Primary Care Provider [phone] Reason for Visit * Reason Comments Return Visit Encounter Details Date Type Department Care Team (Late st Contact Info) Description 10/19/2023 4:30 PM EDT Office Visit Gynecology/Obstetric s Gurvindercherelle Castillos [address] [place] [address] Noreen Cunningham PA-C [address] [place] [address] Supervision of other normal , antepartum*; Class [...] money to get more. Never true 09/08/2022 [place] Depression Scale Answer Date Recorded [place] Depression Scale Total 0 05/01/2023 The thought [...] Team (Late st Contact Info) Description 11/06/2023 10:30 AM EDT Imaging Radiology [facility] [address] [place] [address] 11/06/2023 11:30 AM EDT Office Visit Gynecology/Obstetrics [facility] [address] [place] [address] Noreen Cunningham PA-C [address] [place] [address] Pending Results Name Type Priority Associated Diagnoses [...] Negative Ketone, Urine Negative Negative mg/dL Specific [place], Urine 1.020 1.003 - 1.030 Blood, Urine [...] obesity documented in this encounter Care Teams Cook Dessert Relationship Specialty Start Date End Date SheltonJune MABEL Olmedo [address] [place] [address] PCP - General Physician Brim Edge Trimmer 11/20/16 documented as of this encounter
--- OUTSIDE RECORDS SUMMARY | 2023-12-02 12:58 | External Medical Summary | Summary of Care ---
Author Name Unknown Organization [facility] Address [address] [place] [address] Phone [phone] Care Team Providers Care Foundation Drill Operator Helper Name Role Phone NatyphilipShala PA-C Primary Care Provider [phone] Encounter Details Date Type Department Care Team (Late st Contact Info) Description 09/18/2023 Telephone Gynecology/Obstetrics [facility] [address] [place] [address] Noreen Cunningham PA-C [address] [place] [address] Allergies No known active allergiesdocumented as of this encounter (statuses as of 09/21/2023) Medications Medication Sig Dispensed Refills Start Date End Date Status 28-0.8 MG Oral Tablet Take by mouth. Active Amoxicillin 500 MG Oral Tablet Take 1 Tablet by mouth in the morning and 1 Tablet at noon and 1 Tablet before bedtime. Do all this for 5 days. Until gone.. 15 Tablet 09/18/2023 09/23/2023 Active documented as of this encounter (statuses as of 09/21/2023) Active Problems Problem Noted Date Diagnosed Date [...] as of this encounter (statuses as of 09/21/2023) Resolved Problems Problem Noted Date Diagnosed Date [...] as of this encounter (statuses as of 09/21/2023) Immunizations Name Administration Dates Next Due TDAP [...] money to get more. Never true 09/08/2022 [place] Depression Scale Answer Date Recorded [place] Depression Scale Total 0 05/01/2023 The thought [...] encounter Miscellaneous Notes * Telephone Encounter - Noreen Cunningham PA-C - 09/18/2023 5:41 PM EDT Treatment sent to pharmacy. Noreen Cunningham PA-C * Telephone Encounter - Duyen Bradshaw LPN - 09/18/2023 1:19 PM EDT Patient notified. She is having symptoms of frequency and pressure, would prefer to treat. * Telephone Encounter - Noreen Cunningham PA-C - 09/18/2023 1:03 PM EDT Urine culture returned positive for Lactobacillus. However, this may be due to contaminated sample with skin leif. Is she having any present UTI symptoms: dysuria, bladder pain, fever, chills or flank pain? If yes, we can treat -- otherwise, would recommend we just repeat urine testing with next appointment ensuring clean catch. Per Up to Date: As most clinical laboratories do not routinely quantify urine isolates to 102 cfu/mL, it is reasonable to use a quantitative count ?103 cfu/mL in a symptomatic woman as an indicator of symptomatic UTI. If bacteria that are not typical uropathogens (such as lactobacillus) are isolated, the diagnosis of cystitis is typically made only if they are isolated in high bacterial counts (?105 cfu/mL). documented in this encounter Plan of Treatment Upcoming Encounters Date Type Department Care Team (Late st Contact Info) Description 09/29/2023 10:30 AM EDT Imaging Radiology [facility] 2nd [facility] [address] [place] [address] 09/29/2023 11:30 AM EDT Office Visit Gynecology/Obstetrics [facility] [address] [place] [address] Backer, FELIX Apple [address] [place] [address] Health Maintenance Due Date Last Done Comments [...] filedocumented as of this encounter Care Teams Foundation Drill Operator Helper Relationship Specialty Start Date End Date Shelton Shala MABEL Olmedo [address] [place] [address] PCP - General Physician Staff Midwife 11/20/16 documented as of this encounter
--- OUTSIDE RECORDS SUMMARY | 2023-12-02 12:58 | External Medical Summary ---
Author Name Unknown Address Unknown Organization K01:[facility] [place] [address] [facility] [place]. [facility] [address] Laboratory Report Ordering Provider Test Date Status KAL PAULINO 09/16/2023 10:40:05 Final Observation Date Value Abnormality Reference (Units ) Status MYCODE SPECIMEN-SST 09/16/2023 10:40:05 Freezing of extracted DNA, whole blood and/or serum. Final Performing Location [facility] [place] - [address] [place] [address]
--- OUTSIDE RECORDS SUMMARY | 2023-12-02 12:58 | External Medical Summary | Summary of Care ---
Author Name Unknown Organization [facility] Address [address] [place] [address] Phone [phone] Care Team Providers Care Finish Mill Operator Name Role Phone Shala Peoples PA-C Primary Care Provider [phone] Reason for Visit * Reason Comments Return Visit Encounter Details Date Type Department Care Team (Late st Contact Info) Description 11/06/2023 11:30 AM EDT Office Visit Gynecology/Obstetric s Diazluz marina Castillos [address] [place] [address] Noreen Cunningham PA-C [address] [place] [address] Supervision of other normal , antepartum*; Class [...] money to get more. Never true 09/08/2022 [place] Depression Scale Answer Date Recorded [place] Depression Scale Total 0 05/01/2023 The thought [...] Sign Reading Time Taken Comments Blood Pressure 104/72 11/06/2023 11:18 AM EDT Pulse - - Temperature - - Respiratory Rate - - Oxygen Saturation - - Inhaled Oxygen Concentration - - Weight 104.9 kg (231 lb 3.2 oz) 024 11:18 AM EDT Height - - Body Mass Index 36.21 06/26/2023 11:45 AM EDT documented in this encounter Progress Notes * Noreen Cunningham PA-C - 11/06/2023 11:49 AM EDT 35w6d Growth today. Preliminary results: 2732g 45%ile, HELENA 14.3. Final results pending. Denies LOF, VB, contractions. Baby is active. Reviewed GBS next visit. Has rash started Thursday after being outside. Has had rash/reactions before. Pt states few spot on arm, also on upper R abdomen. Itchy at times. Not worsening since first noticing. No history of chicken pox. Appearance of a few small papules that are red and slightly raised. Discussed PCP follow up, pt agreeable. Asking to scheduled IOL today. Prefers postdates, specifically Thursday following MEGAN. Advised her date could change as elective, or if other related issues happens. She understands. Also explained could be a could days process. RTC in 1 week NST to start at 37 weeks Noreen Cunningham PA-C * Kalani Burgess CMA - 11/06/2023 11:18 AM EDT 35w6d Rash on stomach and arms. Random red bumps. Itching when touched. Did do some yard work. documented in this encounter Plan of Treatment Health Maintenance Due Date Last Done Comments [...] obesity documented in this encounter Care Teams Finish Mill Operator Relationship Specialty Start Date End Date SheltonJune Honorio, HENRYC [facility] [place] [address] PCP - General Physician Load Planner 11/20/16 documented as of this encounter
--- OUTSIDE RECORDS SUMMARY | 2023-12-02 12:58 | External Medical Summary | Summary of Care ---
Author Name Unknown Organization [facility] Address [address] [place] [address] Phone [phone] Care Team Providers Care Relay Motorman Name Role Phone Natyphilip Shala Olmedo PA-C Primary Care Provider [phone] Reason for Visit * Reason Comments Return Visit Encounter Details Date Type Department Care Team (Late st Contact Info) Description 11/11/2023 9:15 AM EDT Office Visit Gynecology/Obstetric s [facility] [place] [address] [facility] [place] [address] Machelle Underwood CRNP [address] [place] [address] [place] Non Stress Tests Don[place] [address] [facility] [place] [address] Supervision of other normal , antepartum*; Class II obesity Allergies No known active allergiesdocumented as of this encounter (statuses as of 11/11/2023) Medications Medication Sig Dispensed Refills Start Date End Date Status 28-0.8 MG Oral Tablet Take by mouth. Active documented as of this encounter (statuses as of 11/11/2023) Active Problems Problem Noted Date Diagnosed Date [...] as of this encounter (statuses as of 11/11/2023) Resolved Problems Problem Noted Date Diagnosed Date [...] as of this encounter (statuses as of 11/11/2023) Immunizations Name Administration Dates Next Due TDAP [...] money to get more. Never true 09/08/2022 [place] Depression Scale Answer Date Recorded [place] Depression Scale Total 0 05/01/2023 The thought [...] Sign Reading Time Taken Comments Blood Pressure 110/68 11/11/2023 9:11 AM EDT Pulse - - Temperature - - Respiratory Rate - - Oxygen Saturation - - Inhaled Oxygen Concentration - - Weight 106.1 kg (234 lb) 11/11/2023 9:11 AM EDT Height 170.2 cm (5' 7") 11/11/2023 9:11 AM EDT Body Mass Index 36.65 11/11/2023 9:11 AM EDT documented in this encounter Progress Notes * Machelle Underwood CRNP - 11/11/2023 9:11 AM EDT 36w4d Doing well, good movement. No regular ctx, leaking/bleeding. Normal growth/HELENA, vertex on growth scan 11/05. GBS today. Start NSTs at 37 weeks due to class 2 obesity. Completed today as pt was scheduled early. Recommend flu and RSV vaccination, discussed timing. Provided with instructions for IOL. 1 week return. Bone Char Operator Documentation Provider requested specialty manufacturing supervisor. Name of specialty manufacturing supervisor: Yanira ASSESSMENT assessment with Non-stress Test completed on 11/11/2023 at 36.4 weeks gestation for indication of obesity heart baseline: 150 bpm Variability: Moderate Decelerations: absent Accelerations: present Contractions: None NST start time: 4 (time wrong on EFM) NST stop time: 0022 NST strip reviewed, interpreted, and approved by OB provider, FELIX Layton . NST strip stored in clinic storage file FELIX Layton documented in this encounter Plan of Treatment Upcoming Encounters Date Type Department Care Team (Late st Contact Info) Description 11/18/2023 11:15 AM EDT Office Visit Gynecology/Obstetrics [facility] [place] [address] [place] [address] Noreen Cunningham PA-C [address] [place] [address] [place] Non Stress Tests Donell [address] [place] [address] 11/25/2023 10:15 AM EDT Office Visit Gynecology/Obstetrics [facility] [address] [place] [address] Haily Alfred CRNP [address] [place] [address] [place], Non Stress Tests Donell [address] [place] [address] 12/02/2023 1:00 PM EDT Office Visit Gynecology/Obstetrics [facility] [address] [place] [address] Backer, FELIX Apple [address] [place] [address] [place], Non Stress Tests Donell [address] [place] [address] Pending Results Name Type Priority Associated Diagnoses Date /Time GROUP B STREP CULTURE/PCR Lab Routine Supervision of other normal , antepartum 11/11/2023 9:48 AM EDT Scheduled Orders Name Type Priority Associated Diagnoses Orde r Schedule GROUP B STREP CULTURE/PCR Lab Routine Supervision of other normal , antepartum Expected: 11/11/2023, Expires: 11/10/2024 Health Maintenance Due Date Last Done Comments [...] obesity documented in this encounter Care Teams Relay Motorman Relationship Specialty Start Date End Date Shelton June Honorio, HENRYC [address] [place] [address] PCP - General Physician Equipment Superintendent 11/20/16 documented as of this encounter
--- OUTSIDE RECORDS SUMMARY | 2023-12-02 12:58 | External Medical Summary ---
Author Name Unknown Address Unknown Organization [id number]:[facility] - [facility] [address] [place] [address] Laboratory Report Ordering Provider Test Date Status ROM ROSARIO 11/11/2023 09:48:54 Final Observation Date Value Abnormality Reference (Units ) Status Streptococcus agalactiae DNA [Presence] in Specimen by BECKY with probe detection 11/11/2023 09:48:54 Negative Negative Final No Group B Streptococcus det ected by culture-enhanced PCR (amplified probe). GBS GBSCT - [facility] 11/11/2023 09:48:54 0.0 Final GBS SPCCT - [facility] 11/11/2023 09:48:54 30.3 Final Performing Location [facility] - [address] [place] [address]
--- OUTSIDE RECORDS SUMMARY | 2023-12-02 12:58 | External Medical Summary ---
Author Name Unknown Address Unknown Organization [id number]:[facility] [place] [address] [place] [id number] Laboratory Report Ordering Provider Test Date Status LISSACHELSIE 10/19/2023 16:44:42 Final Observation Date Value Abnormality Reference (Units) Status Bacteria identified in Specimen by Culture 10/19/2023 16:44:42 No significant growth Final Test: Culture, Urine, Quanti tative
Specimen Source: Urine, Clean Catch
Specimen Type: Urine
Specimen Date: 10/19/2023 1644
Result Date: 10/20/2023 1722
Result Status: Final result
Resulting Lab: [facility]
[address]
[place] [address]

CULTURE

No significant growth

null Performing Location [facility] [place] - [address] [facility] [address]
--- OUTSIDE RECORDS SUMMARY | 2023-12-02 12:59 | External Medical Summary | Summary of Care ---
Author Name Unknown Organization [facility] Address [address] [place] [address] Phone [phone] Care Team Providers Care Industrial Pharmacist Name Role Phone Natyphilip Shala Olmedo PA-C Primary Care Provider [phone] Reason for Visit * Reason Comments Return Visit Encounter Details Date Type Department Care Team (Late st Contact Info) Description 09/03/2023 10:15 AM EDT Office Visit Gynecology/Obstetric s [facility] [address] [place] [address] Haily Alfred CRNP [address] [place] [address] Supervision of other normal , antepartum*; Class II obesity Allergies No known active allergiesdocumented as of this encounter (statuses as of 09/03/2023) Medications Medication Sig Dispensed Refills Start Date End Date Status 28-0.8 MG Oral Tablet Take by mouth. Active documented as of this encounter (statuses as of 09/03/2023) Active Problems Problem Noted Date Diagnosed Date [...] as of this encounter (statuses as of 09/03/2023) Resolved Problems Problem Noted Date Diagnosed Date [...] as of this encounter (statuses as of 09/03/2023) Immunizations Name Administration Dates Next Due TDAP [...] money to get more. Never true 09/08/2022 [place] Depression Scale Answer Date Recorded [place] Depression Scale Total 0 05/01/2023 The thought [...] y our heating, water, or electric bill? No 09/08/2022 Is your family able to pay t he heat, water, or electric bill? (Household - for ages 0-17 years) Not on file 09/08/2022 Does your family have access to good internet? (Household - for ages 0-17 years) Not on file 09/08/2022 Employment Status Answer Date Recorded Are you unemployed or without regular income? No 09/08/2022 Does the household have a re lar source of income? (Household - for ages 0-17 years) Not on file 09/08/2022 Social Connections Answer Date Recorded How often do you feel lonely or isolated from th ose around you? Never 09/08/2022 Financial Resource Strain Answer Date R ecorded [...] Sign Reading Time Taken Comments Blood Pressure 100/58 09/03/2023 10:19 AM EDT Pulse - - Temperature - - Respiratory Rate - - Oxygen Saturation - - Inhaled Oxygen Concentration - - Weight 106.8 kg (235 lb 6.4 oz) 024 10:19 AM EDT Height - - Body Mass Index 36.87 06/26/2023 11:45 AM EDT documented in this encounter Progress Notes * Haily Alfred CRNP - 09/03/2023 10:47 AM EDT 26w5d Has had 3 episodes of lightheadedness, flushing, tired after. After discussion, seems to be dehydration as the cause. Discussed recommendation for 120oz of water per day. No other concerns. Baby is active, no contractions, bleeding, LOF. Glucola with next visit. FELIX Cordova documented in this encounter Nursing Notes * Kalani Burgess MED ASSIST - 09/03/2023 10:17 AM EDT 26w5d Denies vaginal bleeding/rom + movements + vomiting x4 days a week in the morning Episodes of lightheadedness, hot flashes. Very tired afterwards. ? Panic attacks. Has happened around eating/drinking documented in this encounter Plan of Treatment Upcoming Encounters Date Type Department Care Team (Late st Contact Info) Description 09/16/2023 10:30 AM EDT Laboratory Laboratory, [facility] [address] [facility] [place] [address] [facility] [address] [facility] [place] [address] Scheduled Orders Name Type Priority Associated Diagnoses Orde r Schedule 50-G GESTATIONAL GLUCOSE, 1 HOUR Lab Routine Supervision of other normal , antepartum Expected: 09/14/2023 (Approximate), Expires: 09/02/2024 SYPHILIS ANTIBODY SCREEN WITH REFLEX TO RPR Lab Routine Supervision of other normal , antepartum Expected: 09/14/2023 (Approximate), Expires: 09/02/2024 CBC WITH WBC DIFFERENTIAL AND ANEMIA REFLEX WORKUP Lab Routine Supervision of other normal , antepartum Expected: 09/14/2023 (Approximate), Expires: 09/02/2024 Health Maintenance Due Date Last Done Comments Hepatitis B (1 of 3 - 19+ 3-dose series) 08/26/2014 Depression Monitoring 12/14/2020 12/15/2019 COVID-19 Vaccine (1 - 2022-2 4 season) 2022 Influenza Vaccine (FLU shot) (Season Ended) 2023 Pap Smear 05/01/2026 05/01/2023, 07/04/2020, 08/06/2017 DTaP,Tdap,and Td Vaccines (2 - Td or Tdap) 01/30/2028 01/29/2018 Gonorrhea / Chlamydia Screen Discontinued , 07/04/2020, 08/06/2017 GARDASIL-HPV IMMUNIZATION SERIES Aged Out No longer eligible based on [...] obesity documented in this encounter Care Teams Industrial Pharmacist Relationship Specialty Start Date End Date SheltonJune MABEL Olmedo [address] [place] [address] PCP - General Physician Turn Machine Operator 11/20/16 documented as of this encounter
--- OUTSIDE RECORDS SUMMARY | 2023-12-02 12:59 | External Medical Summary ---
Author Name Unknown Address Unknown Organization K01:[facility] [place] [place] - [address] [place] [address] Laboratory Report Ordering Provider Test Date Status DAMIÁN RAMON 09/16/2023 10:40:05 Final Observation Date Value Abnormality Reference (Units ) Status WBC, Total 09/16/2023 10:40:05 11.36 Above high normal 4 .00-10.80 (K/uL) Final RBC 09/16/2023 10:40:05 4.41 3.85-5.15 (M/uL) Final Hemoglobin 09/16/2023 10:40:05 12.4 12.0-15.3 (g/dL) Final Anemia reflex testing trigge rs on a HGB < 12.0 for Females and HGB < 13.0 for Males in accordance with the WHO Anemia Guidelines
Anemia reflex testing triggers on a HGB < 12.0 for Females and HGB < 13.0 for Males in accordance with the WHO Anemia Guidelines HCT 09/16/2023 10:40:05 38.5 36.0-45.2 (%) Final MCV 09/16/2023 10:40:05 87.3 81.5-97.5 (fL) Final MCH 09/16/2023 10:40:05 28.1 27.0-34.0 (pg) Final MCHC 09/16/2023 10:40:05 32.2 32.0-36.0 (g/dL) Final RDW 09/16/2023 10:40:05 13.5 11.5-15.5 (%) Final Platelets 09/16/2023 10:40:05 277 140-400 (K /uL) Final MPV 09/16/2023 10:40:05 10.3 6.6-11.1 ( fL) Final Nucleated erythrocytes/100 leukocytes [Ratio] in Blood by Automated count 09/16/2023 10:40:05 0 <=0 (/100 WBCs) [facility] Performing Location [facility] [place] [place] - [address] [facility] [address]
--- OUTSIDE RECORDS SUMMARY | 2023-12-02 12:59 | External Medical Summary ---
Author Name Unknown Address Unknown Organization K01:[facility] [place] - [address] [facility] [address] Laboratory Report Ordering Provider Test Date Status DAMIÁN RAMON 09/16/2023 10:40:05 Final Observation Date Value Abnormality Reference (Units ) Status Treponema pallidum Ab [Presence] in Serum by Immunoassay 09/16/2023 10:40:05 Nonreactive Nonreactive Final No serologic evidence of syp hilis. No additional testing clinicially indicated at this time. Consider repeat testing in 2-4 weeks if acute or primary syphilis is suspected. Performing Location [facility] [place] [facility] [address] [facility] [address]
--- OUTSIDE RECORDS SUMMARY | 2023-12-02 12:59 | External Medical Summary ---
Author Name Unknown Address Unknown Organization K01:[facility] [place] - [address] [facility] [address] [place] [id number] Laboratory Report Ordering Provider Test Date Status LISSACHELSIE 09/16/2023 10:40:05 Final <10,000 colonies/ml mixed no rmal leif Observation Date Value Abnormality Reference (Units ) Status Bacteria identified in Specimen by Culture 09/16/2023 10:40:05 [id number]^LACTOBA CILLUS SPECIES Abnormal Final 10,000 to 100,000 colonies/m L Lactobacillus species
Test: Culture, Urine, Quantitative
Specimen Source: Urine, Clean Catch
Specimen Type: Urine
Specimen Date: 09/16/2023 1040
Result Date: 09/17/2023 1520
Result Status: Final result
Abnormal: Yes
Resulting Lab: [facility]
[address] [facility] [place] [address]

CULTURE

10,000 to 100,000 colonies/mL Lactobacillus species (Abnormal)

<10,000 colonies/ml mixed normal leif

null Performing Location LAB[facility]ORY [place] [address] [address] [facility] [address] [facility] [address]
--- OUTSIDE RECORDS SUMMARY | 2023-12-02 12:59 | External Medical Summary ---
Author Name Unknown Address Unknown Organization K01:[facility] [place] - [address] [facility] [address] Laboratory Report Ordering Provider Test Date Status DAMIÁN RAMON 09/16/2023 10:40:05 Final Observation Date Value Abnormality Reference (Units ) Status SYNC LEUKOCYTES IN BLOOD BY AUTOMATED COUNT 09/16/2023 10:40:05 11.36 Above high normal 4.00-10.80 (K/uL) Final Segs 09/16/2023 10:40:05 81.8 Above high normal 40.0-75.0 (%) Final Lymphs % 09/16/2023 10:40:05 13.2 Below low normal 18.0-42.0 (%) Final Monos 09/16/2023 10:40:05 3.9 1.0-11.0 (%) Final Eosinophils 09/16/2023 10:40:05 0.3 0.0-6.0 (%) Final Basos 09/16/2023 10:40:05 0.3 0.0-2.0 (%) Final Immature Granulocyte, Percent 09/16/2023 10:40:05 0.5 0.0-2.0 (%) Final Absolute Segs 09/16/2023 10:40:05 9.30 Above high normal 1.80-7.70 (K/uL) Final Lymphs, absolute 09/16/2023 10:40:05 1.50 1.00-4.80 (K/ul) Final Monos, Abs 09/16/2023 10:40:05 0.44 0.00-1.10 (K/uL) Final Eos, Abs 09/16/2023 10:40:05 0.03 0.00-0.70 (K/uL) Final Basos, Abs 09/16/2023 10:40:05 0.03 0.00-0.20 (K/uL) Final Immature Granulocytes, Number 09/16/2023 10:40:05 0.06 0.00-0.20 (K/uL) Final Performing Location [facility]ORY [facility] [place] - [facility] [address] [facility] [address]
--- OUTSIDE RECORDS SUMMARY | 2023-12-02 12:59 | External Medical Summary | Summary of Care ---
Author Name Unknown Organization [facility] Address [address] [place] [address] Phone [phone] Care Team Providers Care Office Technician Name Role Phone Natyphilip Shala Olmedo PA-C Primary Care Provider [phone] Reason for Visit * Reason Comments Return Visit Encounter Details Date Type Department Care Team (Late st Contact Info) Description 06/26/2023 11:45 AM EDT Office Visit Gynecology/Obstetric s [facility]a [facility] [address] [place] [address] Noreen Cunningham PA-C [address] [place] [address] Supervision of other normal , antepartum*; Class II obesity; Urinary tract infection in mother during second trimester of Allergies No known active allergiesdocumented as of this encounter (statuses as of 06/26/2023) Medications Medication Sig Dispensed Refills Start Date End Date Status 28-0.8 MG Oral Tablet Take by mouth. 0 Active documented as of this encounter (statuses as of 06/26/2023) Active Problems Problem Noted Date Diagnosed Date [...] as of this encounter (statuses as of 06/26/2023) Resolved Problems Problem Noted Date Diagnosed Date [...] as of this encounter (statuses as of 06/26/2023) Immunizations Name Administration Dates Next Due TDAP [...] money to get more. Never true 09/08/2022 [place] Depression Scale Answer Date Recorded [place] Depression Scale Total 0 05/01/2023 The thought of harming myself has occurred to me . Never 05/01/2023 Estimated Date of Delivery Comme nts Yes [...] Sign Reading Time Taken Comments Blood Pressure 102/58 06/26/2023 11:45 AM EDT Pulse - - Temperature - - Respiratory Rate - - Oxygen Saturation - - Inhaled Oxygen Concentration - - Weight 103.4 kg (228 lb) 06/26/2023 11:45 AM EDT Height 170.2 cm (5' 7") 06/26/2023 11:45 AM EDT Body Mass Index 35.71 06/26/2023 11:45 AM EDT documented in this encounter Progress Notes * Noreen Cunningham PA-C - 06/26/2023 1:32 PM EDT 16w6d Denies VB, LOF. + quickening. Had + urine culture last visit s/p treatment. Pt reports mild cramping, repeat urine testing today. Treatment pending results. Declines genetics testing. Anatomy pended for next visit. RTC in 4 weeks Noreen Cunningham PA-C documented in this encounter Nursing Notes * Adriana Mcbride LPN - 06/26/2023 11:57 AM EDT 16w6d Denies concerns documented in this encounter Plan of Treatment Upcoming Encounters Date Type Department Care Team (Late st Contact Info) Description 07/28/2023 10:30 AM EDT [facility] [address] [place] [address] 07/28/2023 11:45 AM EDT Office Visit Gynecology/Obstetrics [facility] [address] [place] [address] Machelle Underwood CRNP [address] [place] [address] Pending Results Name Type Priority Associated Diagnoses Date /Time CULTURE, URINE, QUANTITATIVE Lab Routine Urinary tract infection in mother during second trimester of 06/26/2023 12:25 PM EDT Scheduled Orders Name Type Priority Associated Diagnoses Orde r Schedule US PREG SINGLE/1ST GEST, 14 WEEKS OR LATER Medical Imaging Routine Supervision of other normal , antepartum Expected: 07/26/2023 (Approximate), Expires: 07/25/2024 Health Maintenance Due Date Last Done Comments Hepatitis B (1 of 3 - 19+ 3-dose series) 08/26/2014 COVID-19 Vaccine (2022-2 4 season) 2022 Influenza [...] normal , antepartum- Primary Class II obesity Urinary tract infection in mother during second trimester of documented in this encounter Care Teams Office Technician Relationship Specialty Start Date End Date Shelton Shala MABEL Olmedo [address] [place] [address] PCP - General Physician Popped Corn Oven Attendant 11/20/16 documented as of this encounter
--- OUTSIDE RECORDS SUMMARY | 2023-12-02 12:59 | External Medical Summary | Summary of Care ---
Author Name Unknown Organization [facility] Address [address] [place] [address] Phone [phone] Care Team Providers Care Central Processing Technician Name Role Phone NatyphilipShala PA-C Primary Care Provider [phone] Reason for Visit * Reason Comments Return Visit Encounter Details Date Type Department Care Team (Late st Contact Info) Description 07/28/2023 11:45 AM EDT Office Visit Gynecology/Obstetric s [facility] [address] [place] [id number] BackerMachelle CRNP [address] [place] [phone] Supervision of other normal , antepartum*; Class II obesity Allergies No known active allergiesdocumented as of this encounter (statuses as of 07/28/2023) Medications Medication Sig Dispensed Refills Start Date End Date Status 28-0.8 MG Oral Tablet Take by mouth. Active documented as of this encounter (statuses as of 07/28/2023) Active Problems Problem Noted Date Diagnosed Date [...] as of this encounter (statuses as of 07/28/2023) Resolved Problems Problem Noted Date Diagnosed Date [...] as of this encounter (statuses as of 07/28/2023) Immunizations Name Administration Dates Next Due TDAP [...] money to get more. Never true 09/08/2022 Linden Depression Scale Answer Date Recorded Linden Depression Scale Total 0 05/01/2023 The thought [...] Sign Reading Time Taken Comments Blood Pressure 100/60 07/28/2023 11:36 AM EDT Pulse - - Temperature - - Respiratory Rate - - Oxygen Saturation - - Inhaled Oxygen Concentration - - Weight 105.2 kg (232 lb) 07/28/2023 11:36 AM EDT Height - - Body Mass Index 36.34 06/26/2023 11:45 AM EDT documented in this encounter Progress Notes * Machelle Underwood CRNP - 07/28/2023 11:45 AM EDT 21w3d Anatomy scan today, report in process. + movement. No cramping or bleeding. Declines MSAFP. No urinary symptoms. Return in 4 weeks. FELIX Layton documented in this encounter Nursing Notes * Radha Manzano LPN - 07/28/2023 11:38 AM EDT 21w3d Denies vaginal bleeding/rom + movement Anatomy scan today No new concerns documented in this encounter Plan of Treatment Upcoming Encounters Date Type Department Care Team (Late st Contact Info) Description 08/25/2023 10:00 AM EDT Office Visit Gynecology/Obstetrics [facility] [address] [place] [phone] Haily Alfred CRNP [address] [place] [phone] Health Maintenance Due Date Last Done Comments [...] obesity documented in this encounter Care Teams Central Processing Technician Relationship Specialty Start Date End Date Shelton June Honorio, HENRYC [facility] Ingrid Webb [place] [id number] PCP - General Physician Film Splicer 11/20/16 documented as of this encounter
--- OUTSIDE RECORDS SUMMARY | 2023-12-02 12:59 | External Medical Summary ---
Author Name Unknown Address Unknown Organization [id number]:[facility] - [address] [place] [id number] Laboratory Report Ordering Provider Test Date Status CHELSIE ALCARAZ 06/26/2023 12:25:20 Final Observation Date Value Abnormality Reference (Units) Status Bacteria identified in Specimen by Culture 06/26/2023 12:25:20 No significant growth Final Test: Culture, Urine, Quanti tative
Specimen Source: Urine, Clean Catch
Specimen Type: Urine
Specimen Date: 06/26/2023 12:25 PM
Result Date: 06/27/2023 11:43 AM
Result Status: Final result
Resulting Lab: [facility]
[address]
[facility] [id number]

CULTURE

No significant growth

null Performing Location [facility] - [address] [facility] [id number]
--- NOTE | 2023-12-02 14:14 | Delivery Summary ---
Vaginal Delivery Summary Date of Service December 02, 2023 Vaginal Delivery Summary live female LAVON over intact perineum with delayed cord clamping and Apgars 8/9. True knot in cord noted. Cord blood obtained followed by spontaneous delivery of intact placenta. No tears. EBL 50 ml. Final sponge and instrument count are correct. Mom and baby stable.
[2023-12-02] MEDS ORDERED: bisacodyL 10 MG SUPP PR PRN (14:16)
[2023-12-02] MEDS ORDERED: BENZOCAINE 20% SPRY 85 APPLN/85 GM CAN EXT PRN (14:16)
[2023-12-02] MEDS ORDERED: NON-FORMULARY MEDICATION (Breast Pump device) SCH (14:16)
[2023-12-02] MEDS ORDERED: HYDROCORTISONE ACETATE 25 MG SUPP PR PRN (14:16)
[2023-12-02] MEDS: IBUPROFEN 600 MG TAB PO PRN (16:40)
--- NOTE | 2023-12-02 16:52 | Anesthesia Procedure Note ---
Date of Service December 02, 2023 Anesthesia Post Epidural Note Vital Signs Vital Signs: Temp Pulse Resp BP Pulse Ox 36.6 C 108 H 20 112/64 97 12/02/23 07:15 12/02/23 16:03 12/02/23 15:50 12/02/23 16:03 12/02/23 13:51 Notes Mental Status: alert / awake / arousable Nausea / Vomiting: adequately controlled Pain: adequately controlled Airway Patency, RR, SpO2: stable & adequate BP & HR: stable & adequate Hydration State: stable & adequate Neuraxial Anesthesia: was administered and sensory block is resolving Anesthetic Complications: no major complications apparent and Pt Satisfied with anesthetic care Epidural: Removed without complications and With tip intact
[2023-12-02] MEDS: ACETAMINOPHEN 325 MG TAB PO PRN (19:27)
[2023-12-02] MEDS: DOCUSATE SODIUM 100 MG CAP PO SCH (20:06)
[2023-12-03 06:34] LABS: Hematocrit (blood only) 30.7 % (37.0-47.0); Hemoglobin 10.1 g/dl (12.0-16.0); Mean Corpuscular Hemoglobin 27.3 pg (25.0-34.0); Mean Corpuscular Hgb Conc 32.9 g/dL (32.0-36.0); Mean Platelet Volume 9.8 fL (9.4-12.4); Platelet Count 245 K/uL (130-400); RDW Standard Deviation 41.9 fL (36.4-46.3); White Blood Count 12.28 K/ul (4.8-10.8)
[2023-12-03] MEDS: PRENATAL VITAMIN 1 TAB PO SCH (08:20)
[2023-12-03] MEDS: FERROUS SULFATE 325 MG TAB PO SCH (08:21)
[2023-12-03] MEDS: DIPHTHER/TETAN/PERTUS Vaccine (Tdap, Adol/Adult) 0.5mL IM ONE (16:57)
[2023-12-03] MEDS: bisacodyL 5 MG TABEC PO SCH (19:20)
[2023-12-03 23:07] VITALS: O2SAT 99
[2023-12-04 06:14] LABS: Hematocrit (blood only) 31.6 % (37.0-47.0); Hemoglobin 10.3 g/dl (12.0-16.0)
[2023-12-04 09:51] VITALS: BP 112/78; PULSE 92; RESP 20; TEMP 99.7
--- NOTE | 2023-12-04 11:27 | Obstetrical Progress Note ---
Date of Service December 04, 2023 Assessment & Plan (1) normal course: PPD #2 pt doing well d/c home with instructions Results & Data Vital Signs (Past 12 Hours) Vital Signs Temp Pulse Resp BP Pulse Ox O2 Del Method 12/04/23 08:15 37.6 C H 92 H 20 112/78 99 Room Air
== END 2023-12-04 14:33 | disposition home or self-care (01) | DRG 807 ==
LOC: OPB 01:32 → 4S1 01:35 → 4E2 17:45